=== PATIENT | male | born 1970 | race Caucasian/White ===

== ENCOUNTER 2017-09-16 10:01 | Inpatient (IN) ==
--- NOTE | 2017-09-16 10:12 | Emergency Department Note ---
Disposition Clinical Impression: Fever Qualifiers: Fever type: unspecified Qualified Code(s): R50.9 - Fever, unspecified Sepsis Qualifiers: Sepsis type: sepsis due to unspecified organism Qualified Code(s): A41.9 - Sepsis, unspecified organism Anemia Qualifiers: Anemia type: unspecified type Qualified Code(s): D64.9 - Anemia, unspecified Leukocytosis Qualifiers: Leukocytosis type: bandemia Qualified Code(s): D72.825 - Bandemia Disposition: Admitted As Inpatient Condition: Fair Referrals: Chencho Murillo MD [Primary Care Provider] - Forms: ED Satisfaction Letter Time of Disposition: 13:46 Chest Pain HPI - General Chief Complaint: ED Chest Pain Stated Complaint: CP/SOB Time Seen by Provider: 09/16/17 10:02 Source: patient Mode of arrival: wheelchair Limitations: no limitations Vital Signs Reviewed: Yes Nursing Notes Reviewed: Yes - History of Present Illness HPI Narrative: Patient arrives from his corrugator's office after he complained of chest pain and dyspnea. Chest discomfort started from rest last night. Associated resting dyspnea. Nonproductive cough. Chills. Emesis of "water." Periumbilical pain. He denies fevers Pt complaint: chest pain Onset (ago): hour(s) Duration: constant Onset: during rest Pain Location: substernal Severity: moderate Severity scale (1-10): 6 Quality: aching Pain Radiation: none Improves with: nothing Worsens with: nothing Associated symptoms: Reports: vomiting, dyspnea, cough Treatments prior to arrival chest pain: none - Related Data On Oral Contraceptives: No Home Medications Medication Instructions Recorded Confirmed Atorvastatin [Lipitor] 10 mg PO HS 09/03/16 09/03/16 Furosemide [Lasix] 40 mg PO DAILY 09/03/16 09/03/16 Insulin DETEMIR [Levemir Flextouch] 22 unit SQ HS 09/03/16 09/03/16 amLODIPine [Norvasc] 5 mg PO DAILY 09/03/16 09/03/16 Previous Rx's Medication Instructions Recorded Aspirin Enteric Coated [Aspirin EC] 325 mg PO DAILY 30 Days tablet. 09/04/16 Clopidogrel [Plavix] 75 mg PO DAILY 30 Days tablet 09/04/16 Metoprolol [Lopressor] 25 mg PO BID 30 Days tablet 09/04/16 Simvastatin [Zocor] 40 mg PO HS 30 Days tablet 09/04/16 amLODIPine [Norvasc] 5 mg PO DAILY 30 Days tablet 09/04/16 metFORMIN [Glucophage] 500 mg PO BIDWM 30 Days tablet 09/04/16 Sulfamethoxazole/Trimeth DS 1 each PO BID #20 tablet 11/21/16 [Bactrim DS] Clindamycin [Cleocin] 300 mg PO TID #60 capsule 03/12/17 Doxycycline Hyclate 100 mg PO BID #20 capsule 06/11/17 Allergies Allergy/AdvReac Type Severity Reaction Status Date / Time No Known Allergies Allergy Verified 06/11/17 15:06 All systems ED: reviewed and negative except as stated. Constitutional: Reports: chills Eyes: Reports: as per HPI ENT ED: Reports: as per HPI Cardiovascular: Reports: chest pain Respiratory: Reports: cough, dyspnea Gastrointestinal: Reports: abdominal pain, nausea, vomiting Genitourinary: Reports: as per HPI Musculoskeletal: Reports: as per HPI Integumentary: Reports: as per HPI Neurological: Reports: as per HPI Psychiatric: Reports: as per HPI Endocrine: Reports: as per HPI Hematological/Lymphatic: Reports: as per HPI Allergic/Immunologic: Reports: as per HPI Chest Pain PMH - Past Medical History Medical history: Reports: diabetes, hyperlipidemia, hypertension, renal disease , other Psychiatric history: Reports: anxiety, depression - Social History Smoking Status: Never smoker Alcohol use: Reports: none Drug use: Reports: none Physical Exam - General Limitations: no limitations General appearance: alert, in no apparent distress - Head Head exam: atraumatic - Eye Eye exam: Present: normal appearance - ENT ENT exam: normal exam - Neck Neck exam: Present: normal inspection, full ROM - Chest Chest inspection: Present: normal inspection, symmetric chest wall rise - Respiratory Respiratory exam: Present: normal lung sounds bilaterally, other (Nonproductive cough) - Cardiovascular Cardiovascular exam: Present: regular rate, tachycardia - Abdominal Exam Abdominal exam: Present: soft, Non-Tender (Obese) - Extremities Exam Extremities exam: Present: pedal edema - Neurological Exam Neurological exam: Present: alert, oriented X3, CN II-XII intact - Psychiatric Psychiatric exam: Present: normal affect, normal mood - Skin Skin exam: Present: warm, dry, intact Course Course Narrative: Patient presents from his corrugator office due to cough, dyspnea, chest pain. He is tachycardic on exam. Workup initiated - Reevaluation(s) Reevaluation #1: Patient resting comfortably. Symptoms resolving. Heart rate improving Reevaluation #2: Patient has a leukocytosis with bandemia. He developed a fever. Concern for occult sepsis. Will start broad-spectrum antibiotics and request admission Vital Signs Temperature 99.8 F H 09/16/17 10:03 Pulse Rate 137 09/16/17 10:03 Respiratory Rate 26 09/16/17 10:03 Blood Pressure 175/73 09/16/17 10:03 O2 Sat by Pulse Oximetry 100 09/16/17 10:03 Temperature 100.3 F H 09/16/17 11:31 Pulse Rate 116 09/16/17 13:30 Respiratory Rate 18 09/16/17 13:30 Blood Pressure 131/66 09/16/17 13:30 O2 Sat by Pulse Oximetry 98 09/16/17 13:30 Oxygen Delivery Oxygen Delivery Room Air Chest Pain - Medical Records Medical records reviewed: Yes I reviewed the patient's medical records. Creatinine slightly elevated from baseline. Patient has chronic anemia per my review of medical records - Lab Data Lab results reviewed: Yes I reviewed the patient's lab results. Result diagrams: 09/16/17 10:30 09/16/17 10:30 Lab Results 09/16/17 09/16/17 09/16/17 Range/Units 10:30 10:30 10:30 WBC (4.3-11.1) K/mcL RBC (4.19-5.50) M/mcL Hgb (12.9-16.9) g/dL Hct (37.5-50.1) % MCV (83.0-100.0) fL MCH (28.0-33.3) pg MCHC (31.6-35.5) g/dL RDW (11.5-14.5) % Plt Count (140-400) K/mcL MPV (9.4-12.4) fL Seg Neutrophils % % Band Neutrophils % (0-4) % Lymphocytes % % Metamyelocytes % (0) % Neutrophils # (1.6-8.9) K/mcL Lymphocytes # (0.6-4.6) K/mcL Platelet Estimate (Normal) PT 13.5 H (9.4-12.1) Seconds INR 1.2 APTT 35.6 (26.0-36.0) Seconds D-Dimer 06071 H (0-500) ng/mLFEU Sodium (136-145) mEq/L Potassium (3.5-4.5) mEq/L Chloride (98-109) mEq/L Carbon Dioxide (19-29) mEq/L BUN (8-26) mg/dL Creatinine (0.72-1.25) mg/dL Est GFR ( Amer) (> 60) Est GFR (Non-Af Amer) (> 60) BUN/Creatinine Ratio (6-26) Glucose (70-99) mg/dL Calculated Osmolality (280-300) Lactic Acid (0.5-2.2) mmol/L Calcium (8.6-10.8) mg/dL Total Bilirubin 0.5 (0.2-1.2) mg/dL Direct Bilirubin 0.2 (0.0-0.5) mg/dL Indirect Bilirubin 0.3 (0.0-1.2) mg/dL AST 15 (5-34) Units/L ALT 12 (0-55) Units/L Alkaline Phosphatase 95 (38-126) Units/L Troponin I (0-0.03) ng/mL B-Natriuretic Peptide (0-100) pg/mL Serum Total Protein 7.7 (6.0-8.3) g/dL Albumin 2.8 L (3.5-5.0) g/dL Globulin 4.9 H (2.4-3.5) g/dL Albumin/Globulin Ratio 0.6 L (1.1-2.2) Lipase (8-78) Units/L Urine Color (Yellow) Urine Clarity (Clear) Urine pH (5.0-8.0) pH Units Ur Specific Kosse (1.010-1.025) Urine Protein (Neg-Trace) mg/dL Urine Glucose (UA) (Normal) mg/dL Urine Ketones (Negative) mg/dL Urine Blood (Negative) Urine Nitrite (Negative) Urine Bilirubin (Negative) Urine Urobilinogen (Normal) mg/dL Ur Leukocyte Esterase (Negative) Urine Microscopic RBC (0-3) per hpf Urine Microscopic WBC (0-3) per hpf Ur Squamous Epith Cells (None-Few) per lpf Amorphous Sediment (Few) Urine Bacteria (None-Few) per hpf Hyaline Casts (None-Few) per lpf Granular Casts (None Seen) per lpf Ur Culture Indicated? (NO) 09/16/17 09/16/17 09/16/17 Range/Units 10:30 10:30 10:30 WBC 19.7 H (4.3-11.1) K/mcL RBC 3.12 L (4.19-5.50) M/mcL Hgb 8.8 L (12.9-16.9) g/dL Hct 26.9 L (37.5-50.1) % MCV 86.2 (83.0-100.0) fL MCH 28.2 (28.0-33.3) pg MCHC 32.7 (31.6-35.5) g/dL RDW 14.4 (11.5-14.5) % Plt Count 196 (140-400) K/mcL MPV 10.0 (9.4-12.4) fL Seg Neutrophils % 84.0 % Band Neutrophils % 13.0 H (0-4) % Lymphocytes % 1.0 % Metamyelocytes % 2.0 H (0) % Neutrophils # 19.1 H (1.6-8.9) K/mcL Lymphocytes # 0.2 L (0.6-4.6) K/mcL Platelet Estimate Normal (Normal) PT (9.4-12.1) Seconds INR APTT (26.0-36.0) Seconds D-Dimer (0-500) ng/mLFEU Sodium 134 L (136-145) mEq/L Potassium 5.3 H (3.5-4.5) mEq/L Chloride 106 (98-109) mEq/L Carbon Dioxide 18 L (19-29) mEq/L BUN 45 H (8-26) mg/dL Creatinine 3.71 H (0.72-1.25) mg/dL Est GFR ( Amer) 21 L (> 60) Est GFR (Non-Af Amer) 17 L (> 60) BUN/Creatinine Ratio 12 (6-26) Glucose 252 H (70-99) mg/dL Calculated Osmolality 298 (280-300) Lactic Acid (0.5-2.2) mmol/L Calcium 9.0 (8.6-10.8) mg/dL Total Bilirubin (0.2-1.2) mg/dL Direct Bilirubin (0.0-0.5) mg/dL Indirect Bilirubin (0.0-1.2) mg/dL AST (5-34) Units/L ALT (0-55) Units/L Alkaline Phosphatase (38-126) Units/L Troponin I (0-0.03) ng/mL B-Natriuretic Peptide 852 H (0-100) pg/mL Serum Total Protein (6.0-8.3) g/dL Albumin (3.5-5.0) g/dL Globulin (2.4-3.5) g/dL Albumin/Globulin Ratio (1.1-2.2) Lipase 10 (8-78) Units/L Urine Color (Yellow) Urine Clarity (Clear) Urine pH (5.0-8.0) pH Units Ur Specific Kosse (1.010-1.025) Urine Protein (Neg-Trace) mg/dL Urine Glucose (UA) (Normal) mg/dL Urine Ketones (Negative) mg/dL Urine Blood (Negative) Urine Nitrite (Negative) Urine Bilirubin (Negative) Urine Urobilinogen (Normal) mg/dL Ur Leukocyte Esterase (Negative) Urine Microscopic RBC (0-3) per hpf Urine Microscopic WBC (0-3) per hpf Ur Squamous Epith Cells (None-Few) per lpf Amorphous Sediment (Few) Urine Bacteria (None-Few) per hpf Hyaline Casts (None-Few) per lpf Granular Casts (None Seen) per lpf Ur Culture Indicated? (NO) 09/16/17 09/16/17 09/16/17 Range/Units 10:30 10:30 10:55 WBC (4.3-11.1) K/mcL RBC (4.19-5.50) M/mcL Hgb (12.9-16.9) g/dL Hct (37.5-50.1) % MCV (83.0-100.0) fL MCH (28.0-33.3) pg MCHC (31.6-35.5) g/dL RDW (11.5-14.5) % Plt Count (140-400) K/mcL MPV (9.4-12.4) fL Seg Neutrophils % % Band Neutrophils % (0-4) % Lymphocytes % % Metamyelocytes % (0) % Neutrophils # (1.6-8.9) K/mcL Lymphocytes # (0.6-4.6) K/mcL Platelet Estimate (Normal) PT (9.4-12.1) Seconds INR APTT (26.0-36.0) Seconds D-Dimer (0-500) ng/mLFEU Sodium (136-145) mEq/L Potassium (3.5-4.5) mEq/L Chloride (98-109) mEq/L Carbon Dioxide (19-29) mEq/L BUN (8-26) mg/dL Creatinine (0.72-1.25) mg/dL Est GFR ( Amer) (> 60) Est GFR (Non-Af Amer) (> 60) BUN/Creatinine Ratio (6-26) Glucose (70-99) mg/dL Calculated Osmolality (280-300) Lactic Acid 2.1 (0.5-2.2) mmol/L Calcium (8.6-10.8) mg/dL Total Bilirubin (0.2-1.2) mg/dL Direct Bilirubin (0.0-0.5) mg/dL Indirect Bilirubin (0.0-1.2) mg/dL AST (5-34) Units/L ALT (0-55) Units/L Alkaline Phosphatase (38-126) Units/L Troponin I 0.07 H* (0-0.03) ng/mL B-Natriuretic Peptide (0-100) pg/mL Serum Total Protein (6.0-8.3) g/dL Albumin (3.5-5.0) g/dL Globulin (2.4-3.5) g/dL Albumin/Globulin Ratio (1.1-2.2) Lipase (8-78) Units/L Urine Color Yellow (Yellow) Urine Clarity Slightly Hazy (Clear) Urine pH 5.5 (5.0-8.0) pH Units Ur Specific Kosse 1.025 (1.010-1.025) Urine Protein >=1000 H (Neg-Trace) mg/dL Urine Glucose (UA) 250 H (Normal) mg/dL Urine Ketones Negative (Negative) mg/dL Urine Blood Large H (Negative) Urine Nitrite Negative (Negative) Urine Bilirubin Negative (Negative) Urine Urobilinogen Normal (Normal) mg/dL Ur Leukocyte Esterase Negative (Negative) Urine Microscopic RBC 3-5 H (0-3) per hpf Urine Microscopic WBC 30-50 H (0-3) per hpf Ur Squamous Epith Cells Many H (None-Few) per lpf Amorphous Sediment Many H (Few) Urine Bacteria Moderate H (None-Few) per hpf Hyaline Casts Moderate H (None-Few) per lpf Granular Casts Moderate H (None Seen) per lpf Ur Culture Indicated? NO (NO) - Radiology Data Radiology results reviewed: Yes I reviewed the patient's radiology results. - EKG Data EKG attestation: Yes I reviewed and interpreted this EKG. EKG results narrative: Sinus tachycardia rate 134 SC 141 QRS 85 QT/QTC 273/352
[2017-09-16 10:46] LABS: INR 1.2; Prothrombin Time 13.5 Seconds (9.4-12.1)
[2017-09-16 10:47] LABS: Hematocrit 26.9 % (37.5-50.1); Hemoglobin 8.8 g/dL (12.9-16.9); Mean Corpuscular HGB Conc 32.7 g/dL (31.6-35.5); Mean Corpuscular Hemoglobin 28.2 pg (28.0-33.3); Mean Corpuscular Volume 86.2 fL (83.0-100.0); Platelet Count 196 K/mcL (140-400); Red Blood Count 3.12 M/mcL (4.19-5.50); Red Cell Distribution Width 14.4 % (11.5-14.5)
[2017-09-16 10:49] LABS: Activated Partial Thrombo Time 35.6 Seconds (26.0-36.0)
[2017-09-16 10:56] LABS: Albumin 2.8 g/dL (3.5-5.0); Albumin/Globulin Ratio 0.6 (1.1-2.2); Bilirubin,Direct 0.2 mg/dL (0.0-0.5); Bilirubin,Indirect 0.3 mg/dL (0.0-1.2); Bilirubin,Total 0.5 mg/dL (0.2-1.2); Globulin 4.9 g/dL (2.4-3.5); Total Protein 7.7 g/dL (6.0-8.3)
[2017-09-16 10:57] LABS: Potassium 5.3 mEq/L (3.5-4.5)
[2017-09-16 11:06] LABS: Bilirubin,Urine Negative (Negative); Blood,Urine Large (Negative); Color,Urine Yellow (Yellow); Glucose,Urine (UA) 250 mg/dL (Normal); Ketones,Urine Negative (Negative); Leukocyte Esterase,Urine Negative (Negative); Nitrite,Urine Negative (Negative); PH,Urine 5.5 pH Units (5.0-8.0); Protein,Urine >=1000 mg/dL (Neg-Trace); Specific Gravity,Urine 1.025 (1.010-1.025); Urobilinogen,Urine Normal (Normal)
[2017-09-16 11:13] LABS: Hyaline Casts,Urine Moderate per lpf (None-Few); Squamous Epithelial Cell,Urine Many per lpf (None-Few); WBC,Urine 30-50 per hpf (0-3)
[2017-09-16 11:14] LABS: Clarity,Urine Slightly Hazy (Clear)
[2017-09-16] MEDS ORDERED: 0.9 % Sodium Chloride 1,000 ML IVC ONE ×2 (11:17→11:24)
[2017-09-16 11:25] LABS: Amorphous Sediment,Urine Many (Few); Bacteria,Urine Moderate per hpf (None-Few); Granular Casts,Urine Moderate per lpf (None Seen)
[2017-09-16 11:34] LABS: Lymphocytes # 0.2 K/mcL (0.6-4.6); Neutrophils # 19.1 K/mcL (1.6-8.9)
[2017-09-16 11:35] LABS: Platelet Estimate Normal (Normal)
[2017-09-16] MEDS ORDERED: Levofloxacin 500 MG/100 ML 500 MG/100 ML BAG IVPB ONE (13:46)
[2017-09-16] MEDS ORDERED: *HR* Promethazine 25 MG/ML VIAL IVP PRN (15:23)
[2017-09-16] MEDS ORDERED: *HR* HYDROcodone/Acet 5/325 mg TABLET PO PRN (15:23)
[2017-09-16] MEDS ORDERED: Naloxone 0.4 MG/ML INJ IVP PRN (15:23)
[2017-09-16] MEDS ORDERED: *HR* Morphine 2 MG/ML SYRINGE IVP PRN (15:23)
[2017-09-16] MEDS ORDERED: Ondansetron 4 MG/2 ML VIAL IVP PRN (15:23)
[2017-09-16] MEDS ORDERED: Acetaminophen 325 MG TABLET PO PRN (15:23)
[2017-09-16] MEDS ORDERED: Dextrose Gel 15 GM PO PRN ×2 (15:58)
[2017-09-16] MEDS ORDERED: *HR* Dextrose 50 % in Water (Syg) 50 ML SYRINGE IVP PRN (15:58)
[2017-09-16] MEDS ORDERED: D5% in Water 1,000 ML IVC PRN (15:58)
[2017-09-16] MEDS: Insulin LISPRO 300 UNITS/3 ML VIAL SQ SCH ×2 (16:49→21:36)
[2017-09-16] MEDS: *HR* Heparin 5,000 UNIT/ML VIAL SQ SCH (17:04)
--- NOTE | 2017-09-16 17:47 | Internal Med History&Physical ---
Date of Encounter: 09/16/17 Time of Encounter: 16:00 Assessment and Plan (1) Sepsis Current visit: Yes Status: Acute Will admit the pt into Tele He does meet Sepsis criteria with WBC -19.7, Tachcyardia and source of inf as UTI Cont IV hydration Sent for blood cx and urine cx started on empirical abx Rocephin 2mg IV daily Qualifiers: Sepsis type: sepsis due to unspecified organism Qualified Code(s): A41.9 - Sepsis, unspecified organism (2) UTI (urinary tract infection) Current visit: Yes Status: Acute could be due to recently passed renal calculi Qualifiers: Qualified Code(s): N39.0 - Urinary tract infection, site not specified (3) Elevated troponin Current visit: No Status: Acute Mostly demand ischemia EKG showed sinus tachycardia with VE 134, NO ST T changes Will trend on troponin cont home med ASA, Plavix , Metoprolol and statin will get 2 D echo in AM (4) ERWIN (acute kidney injury) Current visit: No Status: Acute Due to sepsis , dehydration and medication side effect with Lasix and Metformin cont IV hydration Nephro consulted avoid nephro toxic meds (5) SOB (shortness of breath) Current visit: Yes Status: Acute Multi factorial..mostly due to sepsis since D dimer elevate d- V/Q scan was done in ER - showed low probability for PE No signs of DVT Will get 2 D Echo to r/o any heart failure..he does slightly elevated BNP could be due to ERWIN / CKD (6) Diabetes Current visit: No Status: Chronic HbA1C in AM placed on ISS d/c Metformin Qualifiers: Diabetes mellitus type: other specified (including LILIANA) Diabetes mellitus complication status: with skin complications Diabetes mellitus complication detail: with foot ulcer Diabetes mellitus group home insulin use: unspecified manager terminal insulin use status Qualified Code(s): E13.621 - Other specified diabetes mellitus with foot ulcer; L97.509 - Non-pressure chronic ulcer of other part of unspecified foot with unspecified severity (7) Hyperlipidemia Current visit: No Status: Acute on statin Qualifiers: Hyperlipidemia type: unspecified Qualified Code(s): E78.5 - Hyperlipidemia , unspecified (8) Hypertension Current visit: No Status: Chronic resumed all home meds Qualifiers: Hypertension type: essential hypertension Qualified Code(s): I10 - Essential (primary) hypertension (9) Renal calculi Current visit: Yes Status: Acute Reviewed CT ..no active stones now (10) CKD (chronic kidney disease) stage 3, GFR 30-59 ml/min Current visit: Yes Status: Chronic Internal Medicine - H&P: HPI Chief complaint: Abd pain, Chills, N / V Admitted From: Emergency Dept Plans for Post Hospital Care: Home History of present illness: Mr. 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 Pt did mentioned from last 2 days he has beenfeeling weak, lthergiac, developed RLQ abdominal pain with nausea and vomiting. He had CT of Abd and Pelvis done today which showed Rt perinpehric and periureteral soft tissue stranding with thickened bladder wall. Findings were consistent with recently passed calculus. His UA also positive for esterase and bacteria. Pt denied any active CP now. He feels little better after receiving some IV fluids in the ER. Past Med Surg Social Fam HX - Past Medical History Medical history: diabetes, hyperlipidemia, hypertension, renal disease, other Psychiatric history: anxiety, depression - Past Surgical History Surgical History: no surgical history - Social History Smoking Status: Never smoker Smokeless Tobacco Status: No Alcohol use: none Drug use: none - Family History Father Hx Family Cardiac Disorders: Yes (CAD) Hx Family Endocrine Disorder: Yes (DM2) Internal Medicine - H&P: Meds Atorvastatin [Lipitor] 10 mg PO HS 09/03/16 [History] Furosemide [Lasix] 40 mg PO DAILY 09/03/16 [History] Insulin DETEMIR [Levemir Flextouch] 40 unit SQ HS 09/03/16 [History] amLODIPine [Norvasc] 5 mg PO DAILY 09/03/16 [History] Aspirin Enteric Coated [Aspirin EC] 325 mg PO DAILY 30 Days tablet. 09/04/16 [Rx] Clopidogrel [Plavix] 75 mg PO DAILY 30 Days tablet 09/04/16 [Rx] Metoprolol [Lopressor] 25 mg PO BID 30 Days tablet 09/04/16 [Rx] Simvastatin [Zocor] 40 mg PO HS 30 Days tablet 09/04/16 [Rx] metFORMIN [Glucophage] 500 mg PO BIDWM 30 Days tablet 09/04/16 [Rx] 3 Allergy/AdvReac Type Severity Reaction Status Date / Time No Known Allergies Allergy Verified 06/11/17 15:06 All Systems PM: A 10-system review of systems was performed and is negative for pertinent findings except as documented above in the HPI. Review of systems: Reviewed all the systems , everything is benign except the systems and symptoms I mentioned in HPI. - Constitutional Vitals: Temp Pulse Resp BP Pulse Ox 98.2 F 100 17 103/67 98 09/16/17 15:16 09/16/17 15:16 09/16/17 15:16 09/16/17 15:16 09/16/17 16:08 General appearance: Present: A&O X 3, no acute distress, answers questions appropriately Exam: slightly lethargic / weak and dehydrated - Head Head exam: Present: atraumatic, normal inspection - Respiratory Respiratory exam: Present: decreased breath sounds, wheezes (mild). Absent: rales, respiratory distress, rhonchi - Cardiovascular Cardiovascular exam: Present: +S1, +S2, tachycardia. Absent: systolic murmur - GI/Abdominal GI/Abdominal exam: Present: distended, normal bowel sounds, soft. Absent: rebound, rigid, tenderness - Extremities Exam Extremities exam: Present: pedal edema (trace). Absent: calf tenderness, tenderness - Back Exam Back exam: Absent: CVA tenderness (L), CVA tenderness (R) - Neurological Exam Neurological exam: Present: alert, oriented X3 - Psychiatric Psychiatric exam: Present: normal affect, normal mood - Skin Skin exam: Present: dry, warm. Absent: rash Internal Med - H&P Results - Labs CBC & Chem 7: 09/16/17 10:30 09/16/17 10:30
[2017-09-16] MEDS: 0.9 % Sodium Chloride 1,000 ML IVC SCH (18:13)
[2017-09-16 18:28] LABS: Calcium 8.1 mg/dL (8.6-10.8); Potassium 5.7 mEq/L (3.5-4.5)
[2017-09-16] MEDS: Ipratropium/Albuterol Neb 3 ML IH SCH ×3 (20:48→23:25)
[2017-09-16] MEDS: Albuterol 2.5 MG/3 ML NEBULIZER IH SCH ×2 (20:52→23:25)
[2017-09-16] MEDS: Insulin DETEMIR 100 UNIT/ML X5UNITS SQ SCH (21:44)
[2017-09-16 22:59] LABS: Magnesium 1.4 mg/dL (1.6-2.6)
[2017-09-16 23:02] LABS: Potassium 4.6 mEq/L (3.5-4.5)
[2017-09-17] MEDS: 0.9 % Sodium Chloride 1,000 ML IVC SCH ×2 (02:15→11:27)
[2017-09-17] MEDS: Ipratropium/Albuterol Neb 3 ML IH SCH ×6 (03:46→23:03)
[2017-09-17] MEDS: Albuterol 2.5 MG/3 ML NEBULIZER IH SCH ×6 (03:46→23:03)
[2017-09-17 04:33] LABS: Basophils % 0.2 %; Eosinophils # 0.1 K/mcL (0.0-0.6); Eosinophils % 0.5 %; Hematocrit 21.3 % (37.5-50.1); Immature Granulocytes % 0.5 % (0-4); Lymphocytes # 0.8 K/mcL (0.6-4.6); Lymphocytes % 8.2 %; Mean Corpuscular HGB Conc 32.4 g/dL (31.6-35.5); Mean Corpuscular Hemoglobin 27.7 pg (28.0-33.3); Mean Corpuscular Volume 85.5 fL (83.0-100.0); Mean Platelet Volume 10.2 fL (9.4-12.4); Monocytes # 0.9 K/mcL (0.0-1.3); Monocytes % 9.4 %; Platelet Count 136 K/mcL (140-400); Red Blood Count 2.49 M/mcL (4.19-5.50); Red Cell Distribution Width 14.8 % (11.5-14.5); Segmented Neutrophils % 81.2 %
[2017-09-17 04:38] LABS: Hemoglobin 6.9 g/dL (12.9-16.9)
[2017-09-17 04:46] LABS: Albumin/Globulin Ratio 0.5 (1.1-2.2); Bilirubin,Total 0.3 mg/dL (0.2-1.2); Calcium 7.7 mg/dL (8.6-10.8); Chol/HDL Ratio 7.4 (0-4.9); Globulin 4.2 g/dL (2.4-3.5); Magnesium 1.5 mg/dL (1.6-2.6); Potassium 4.7 mEq/L (3.5-4.5); Total Protein 6.4 g/dL (6.0-8.3)
[2017-09-17 04:51] LABS: Albumin 2.2 g/dL (3.5-5.0)
[2017-09-17 05:35] LABS: Platelet Estimate Slight Decrease (Normal)
[2017-09-17] MEDS: *HR* Heparin 5,000 UNIT/ML VIAL SQ SCH (06:21)
[2017-09-17] MEDS ORDERED: Magnesium Sulfate 2 GM in D5% in Water 100 ML IVPB ONE (07:43)
--- NOTE | 2017-09-17 07:54 | Internal Med Progress Note ---
Date of Encounter: 09/17/17 Time of Encounter: 07:52 - Assessment and plan (1) Sepsis Current Visit: Yes Status: Acute Assessment and plan: Improving WBC trended down to normal Blood cx and Urine cx - P cont empirical abx Rocephin Qualifiers: Sepsis type: sepsis due to unspecified organism Qualified Code(s): A41.9 - Sepsis, unspecified organism (2) UTI (urinary tract infection) Current Visit: Yes Status: Acute Assessment and plan: cont abx Rocephin Qualifiers: Qualified Code(s): N39.0 - Urinary tract infection, site not specified (3) Non-healing ulcer of left foot Current Visit: Yes Status: Acute Assessment and plan: It does not look like actively infected now will get X ray foot b/l Consulted [employer] Dr. Gomez for further eval Qualifiers: Qualified Code(s): L97.529 - Non-pressure chronic ulcer of other part of left foot with unspecified severity (4) Anemia due to chronic kidney disease Current Visit: Yes Status: Acute Assessment and plan: His Hb dropped down to 6.9 ..Could be dilutional.. He doea have chronic anemia due to CKD will give 1 U PRBC now check Iron profile in AM (5) Elevated troponin Current Visit: No Status: Acute Assessment and plan: mostly due to demand ischemia trended down to normal will f/u on 2 D Echo (6) ERWIN (acute kidney injury) Current Visit: No Status: Acute Assessment and plan: Due to to sepsis , dehydration and medication side effect with Lasix and Metformin Improving cont IV hydration Nephro consulted avoid nephro toxic meds (7) SOB (shortness of breath) Current Visit: Yes Status: Acute Assessment and plan: Multi factorial..mostly due to sepsis since D dimer elevate d- V/Q scan was done in ER - showed low probability for PE No signs of DVT Will get 2 D Echo to r/o heart failure..he does have slightly elevated BNP could be due to ERWIN / CKD (8) Diabetes Current Visit: No Status: Chronic Assessment and plan: HbA1C - P Cont on ISS + levemir d/c Metformin Qualifiers: Diabetes mellitus type: other specified (including LILIANA) Diabetes mellitus complication status: with skin complications Diabetes mellitus complication detail: with foot ulcer Diabetes mellitus senior living insulin use: unspecified 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 Qualified Code(s): E13.621 - Other specified diabetes mellitus with foot ulcer; L97.509 - Non-pressure chronic ulcer of other part of unspecified foot with unspecified severity (9) Hyperlipidemia Current Visit: No Status: Acute Qualifiers: Hyperlipidemia type: unspecified Qualified Code(s): E78.5 - Hyperlipidemia , unspecified (10) Hypertension Current Visit: No Status: Chronic Assessment and plan: stable with current medication Will give hydralazine IV PRN too Qualifiers: Hypertension type: essential hypertension Qualified Code(s): I10 - Essential (primary) hypertension (11) Renal calculi Current Visit: Yes Status: Acute Assessment and plan: Reviewed CT ..no active stones now (12) CKD (chronic kidney disease) stage 3, GFR 30-59 ml/min Current Visit: Yes Status: Chronic - Subjective Interval history: Mr. 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 Pt did mentioned from last 2 days he has beenfeeling weak, lthergiac, developed RLQ abdominal pain with nausea and vomiting. He had CT of Abd and Pelvis done today which showed Rt perinpehric and periureteral soft tissue stranding with thickened bladder wall. Findings were consistent with recently passed calculus. His UA also positive for esterase and bacteria. Pt was admitted in the hospital with ERWIN with CKD-3 and Sepsis with UTI. Pt stated he is feeling better today. Denied any CP / SOB / Abd pain. Tolerating PO intake ok. No N/V. - Constitutional Vitals: Temp Pulse Resp BP Pulse Ox 98.1 F 97 18 145/83 100 09/17/17 07:14 09/17/17 07:14 09/17/17 07:14 09/17/17 07:14 09/17/17 07:14 General appearance: Present: A&O X 3, no acute distress, answers questions appropriately - Head Head exam: Present: atraumatic, normal inspection - Respiratory Respiratory exam: Present: decreased breath sounds, wheezes (mild). Absent: rales, respiratory distress, rhonchi - Cardiovascular Cardiovascular exam: Present: RRR, +S1, +S2. Absent: systolic murmur - GI/Abdominal GI/Abdominal exam: Present: normal bowel sounds, soft. Absent: rebound, rigid, tenderness - Extremities Exam Extremities exam: Absent: calf tenderness, pedal edema, tenderness Additional comments: chronic non healing ulcer over Left foot at base of 1st MTP joint noticed..No swelling / no erythema / no signs of acute infection noticed. He also have another small non healing ulcer over Rt great toe plantar region - Back Exam Back exam: Absent: CVA tenderness (L), CVA tenderness (R) - Neurological Exam Neurological exam: Present: alert, oriented X3 - Psychiatric Psychiatric exam: Absent: normal affect, normal mood Internal Medicine: Result - Labs CBC & Chem 7: 09/17/17 04:16 09/17/17 04:16 Labs: Short CBC 09/17/17 Range/Units 04:16 WBC 9.9 (4.3-11.1) K/mcL Hgb 6.9 L D (12.9-16.9) g/dL Hct 21.3 L (37.5-50.1) % Plt Count 136 L (140-400) K/mcL Neutrophils # 8.0 (1.6-8.9) K/mcL BMP 09/16/17 09/17/17 22:40 04:16 Sodium 137 138 Potassium 4.6 H D 4.7 H Chloride 113 H 114 H Carbon Dioxide 14 L 15 L BUN 48 H 49 H Creatinine 3.56 H 3.44 H Glucose 118 H 96 Calcium 8.0 L 7.7 L Cardiac Enzymes 09/16/17 Range/Units 22:40 Troponin I 0.05 H* (0-0.03) ng/mL Liver Function 09/17/17 Range/Units 04:16 Total Bilirubin 0.3 (0.2-1.2) mg/dL AST 16 (5-34) Units/L ALT 10 (0-55) Units/L Alkaline Phosphatase 73 (38-126) Units/L Albumin 2.2 L D (3.5-5.0) g/dL - ABG Interpretation ABG results: PT/INR, D-dimer PT 13.5 Seconds (9.4-12.1) H 09/16/17 10:30 D-Dimer 02949 ng/mLFEU (0-500) H 09/16/17 10:30 Consult Discharge Plan - Plan Referrals: Chencho Murillo MD [Primary Care Provider] -
[2017-09-17] MEDS ORDERED: *HR* HYDROcodone/Acet 7.5/325 mg TABLET PO PRN (08:30)
[2017-09-17] MEDS: Insulin LISPRO 300 UNITS/3 ML VIAL SQ SCH ×4 (09:05→21:11)
--- NOTE | 2017-09-17 09:13 | Nephrology Consult Note ---
Date of Encounter: 09/17/17 Time of Encounter: 09:10 Assessment and Plan (1) ERWIN (acute kidney injury) Current Visit: No Status: Acute Kidney function improving after receiving IV fluids Scr 3.44 from 3.56 and GFR 19 from 18 Need strict I/Os-no urine output recorded Avoid nephrotoxins if possible (2) CKD (chronic kidney disease) stage 3, GFR 30-59 ml/min Current Visit: Yes Status: Chronic Baseline Scr 2.02 and GFR 31 as of May 2017 Avoid nephrotoxins if possible (3) Anemia Current Visit: Yes Status: Acute Hgb 6.9 1 unit of PRBC already ordered Iron profile to be check in the morning Qualifiers: Anemia type: unspecified type Qualified Code(s): D64.9 - Anemia, unspecified (4) Sepsis Current Visit: Yes Status: Acute Much better-WBC down from 19.7 to 9.9 today per primary team Qualifiers: Sepsis type: sepsis due to unspecified organism Qualified Code(s): A41.9 - Sepsis, unspecified organism (5) UTI (urinary tract infection) Current Visit: Yes Status: Acute per primary team Qualifiers: Qualified Code(s): N39.0 - Urinary tract infection, site not specified; R31.9 - Hematuria, unspecified; R31.9 - Hematuria, unspecified History of Present Illness - Reason for Consult Consult date: 09/17/17 Acute Kidney Injury, Chronic Kidney Disease - Chief Complaint ERWIN on CKD stage 3, sepsis - History of Present Illness Mr. Kumar is a 47 year old male with known PMH of HTN, DM2, HLD, CKD-3 who was being seen by Dr Jules in the office where he reported SOB and Chest discomfort. A rapid response was called and patient transported to ED where he was admitted with sepsis and shortness of breath. His UA was also positive for esterase and bacteria. Kidney function has decreased from his baseline and nephrology has been asked to manage his ERWIN while hospitalized. Past Med Surg Social Fam HX - Past Medical History Medical history: diabetes, hyperlipidemia, hypertension, renal disease, other Psychiatric history: anxiety, depression - Past Surgical History Surgical History: no surgical history - Social History Smoking Status: Never smoker Smokeless Tobacco Status: No Alcohol use: none Drug use: none - Family History Father Hx Family Cardiac Disorders: Yes (CAD) Hx Family Endocrine Disorder: Yes (DM2) Medications and Allergies Atorvastatin [Lipitor] 10 mg PO HS 09/03/16 [History] Furosemide [Lasix] 40 mg PO DAILY 09/03/16 [History] Insulin DETEMIR [Levemir Flextouch] 40 unit SQ HS 09/03/16 [History] amLODIPine [Norvasc] 5 mg PO DAILY 09/03/16 [History] Aspirin Enteric Coated [Aspirin EC] 325 mg PO DAILY 30 Days tablet. 09/04/16 [Rx] Clopidogrel [Plavix] 75 mg PO DAILY 30 Days tablet 09/04/16 [Rx] Metoprolol [Lopressor] 25 mg PO BID 30 Days tablet 09/04/16 [Rx] Simvastatin [Zocor] 40 mg PO HS 30 Days tablet 09/04/16 [Rx] metFORMIN [Glucophage] 500 mg PO BIDWM 30 Days tablet 09/04/16 [Rx] 3 Allergy/AdvReac Type Severity Reaction Status Date / Time No Known Allergies Allergy Verified 06/11/17 15:06 Review of Systems All Systems: reviewed and no additional remarkable complaints except as stated Constitutional: malaise, no anorexia, no chills, no fever(s) Cardiovascular: chest pain, dyspnea Respiratory: dyspnea Gastrointestinal: no nausea, no vomiting Neurological: no behavioral changes Exam - Vital Signs Vital signs: Initial Vital Signs Temp Pulse Resp BP Pulse Ox 99.8 F H 137 26 175/73 100 09/16/17 10:03 09/16/17 10:03 09/16/17 10:03 09/16/17 10:03 09/16/17 10:03 Vital Signs - Last 8 Hours Temp Pulse Resp BP Pulse Ox 09/17/17 07:14 98.1 F 97 18 145/83 100 09/17/17 03:05 97.7 F 94 18 118/77 99 Intake and Output 09/16/17 09/17/17 09/17/17 23:59 07:59 15:59 Intake Total 1000 / 1000 Balance 1000 / 1000 Intake: IV Fluids 1000 / 1000 0.9 % Sodium Chloride 1,000 ML 1000 / 1000 @ 125 mls/hr IVC .Q8H [facility] Rx#: [id number] Other: Weight 121.472 kg Blood Glucose* 146 88 Patient Weight 09/17/17 23:59 Weight 121.472 kg - General Appearance General appearance: well-developed, well-nourished EENT: ATNC, mucous membranes moist, hearing intact, vision intact Neck: supple Respiratory: clear Cardiology: edema (minimal BLL edema), normal S1, normal S2 Gastrointestinal: no tenderness, no guarding Integumentary: warm and dry Neurologic: alert and oriented x3 Psychiatric: mood/affect appropriate, cooperative Results - Lab Results 09/17/17 04:16 09/17/17 04:16 Most recent lab results Calcium 7.7 mg/dL (8.6-10.8) L 09/17/17 04:16 Magnesium 1.5 mg/dL (1.6-2.6) L 09/17/17 04:16 Consult Discharge Plan - Plan Referrals: Chencho Murillo MD [Primary Care Provider] -
--- NOTE | 2017-09-17 16:01 | Electrocardiograph Report ---
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
[2017-09-17] MEDS ORDERED: 0.9 % Sodium Chloride 250 ML ONE (16:14)
--- NOTE | 2017-09-17 17:20 | Podiatry Consult Note ---
Date of Encounter: 09/17/17 Time of Encounter: 17:10 Assessment and Plan (1) Diabetic foot ulcer Current visit: Yes Status: Acute Assessment: Hemmorhaged callused lesion to plantar #5 MTP right foot extending laterally. S/p sharp cutting with a #15 scalpel blade revealed a full thickness ulceration , no pus, no odor, no periwound erythema, no probe to bone. Xray of right foot reviewed with Dr. Gomez no evidence of soft tissue gas to the 5th metatarsal head. Soft tissue erosions seen to the 5th metatarsal head. Plan: Bedside debridement performed with a #15 scalpel blade, no complications. Ulcer irrigated with saline, dry sterile dressing applied. Will write for wound care orders. No plan for surgical debridement at this time. Will continue to monitor patient closely. Qualifiers: Diabetes mellitus type: type 2 Laterality: right Non-pressure ulcer stage : limited to breakdown of skin Qualified Code(s): E11.621 - Type 2 diabetes mellitus with foot ulcer; L97.411 - Non-pressure chronic ulcer of right heel and midfoot limited to breakdown of skin; L97.411 - Non-pressure chronic ulcer of right heel and midfoot limited to breakdown of skin; L97.411 - Non-pressure chronic ulcer of right heel and midfoot limited to breakdown of skin; L97.411 - Non-pressure chronic ulcer of right heel and midfoot limited to breakdown of skin (2) Non-healing ulcer of left foot Current visit: Yes Status: Acute Assessment: Ulcer to the distal aspect of the left great toe secondary to static hammer toe deformity. S/p sharp cutting with a #15 scalpel blade revealed a full thickness ulceration , no pus, no odor, no periwound erythema, no probe to bone. Xray of left foot reviewed with Dr. Gomez no evidence of bony erosion. Plan: Callused edges removed with a #15 scalpel blade to alleviate pressure and gain true dimensions of wound. Ulcer irrigated with saline, dry sterile dressing applied. Will write for wound care orders. No plan for surgical debridement at this time. Will continue to monitor patient closely. 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 Kumar is a 47 year old male admitted to [place] for UTI, sepsis, ERWIN. Patient has a medical history significant for HTN, DM2, hyperlipidemia, CKD, stage 3. Podiatry was consulted for ulcers to both feet. Patient has a surgical history of right great toe amputation by Dr. Gomez and amputation to the 5th toe and 5th metatarsal head left foot by Dr. Chun. Patient states both of his feet hurt and rates them at a 5 out of 10. Patient was last evaluated by Dr. Gomez in June of 2017 for an ongoing ulcer of the distal aspect of the left great toe secondary to static deformity of rigid hammertoe. In June the right foot ulcer to sub #5 metatarsal head had healed at that time. Patient presents to hospital with open ulcers to the right foot at sub #5 metatarsal head and to the distal aspect of the left great toe. Patient states he was scheduled to have surgery on both feet in July but the surgery was cancelled due to his blood pressure. Patient states both ulcers are draining. Past Med Surg Social Fam HX - Past Medical History Medical history: diabetes, hyperlipidemia, hypertension, renal disease, other Psychiatric history: anxiety, depression - Past Surgical History Surgical History: no surgical history - Social History Smoking Status: Never smoker Smokeless Tobacco Status: No Alcohol use: none Drug use: none - Family History Father Hx Family Cardiac Disorders: Yes (CAD) Hx Family Endocrine Disorder: Yes (DM2) Medications and Allergies Atorvastatin [Lipitor] 10 mg PO HS 09/03/16 [History] Furosemide [Lasix] 40 mg PO DAILY 09/03/16 [History] Insulin DETEMIR [Levemir Flextouch] 40 unit SQ HS 09/03/16 [History] amLODIPine [Norvasc] 5 mg PO DAILY 09/03/16 [History] Aspirin Enteric Coated [Aspirin EC] 325 mg PO DAILY 30 Days tablet. 09/04/16 [Rx] Clopidogrel [Plavix] 75 mg PO DAILY 30 Days tablet 09/04/16 [Rx] Metoprolol [Lopressor] 25 mg PO BID 30 Days tablet 09/04/16 [Rx] Simvastatin [Zocor] 40 mg PO HS 30 Days tablet 09/04/16 [Rx] metFORMIN [Glucophage] 500 mg PO BIDWM 30 Days tablet 09/04/16 [Rx] 3 Allergy/AdvReac Type Severity Reaction Status Date / Time No Known Allergies Allergy Verified 06/11/17 15:06 All Systems Reviewed: A 10-system review of systems was performed and is negative for pertinent findings except as documented above in the HPI. Physical Exam - Constitutional Vitals: Temp Pulse Resp BP Pulse Ox 98.3 F 100 16 144/84 100 09/17/17 16:45 09/17/17 16:45 09/17/17 16:45 09/17/17 16:45 09/17/17 16:45 Exam: General appearance: alert awake oriented X 3. Calm and pleasant, no acute distress.. Vascular: Pedal pulses +2/4 DP/PT , No evidence of cyanosis, pallor or rubor, Edema graded at 1+/4, Skin Temperature warm, No calf pain with manual compression. capillary refill time is immediate to digits. Neurologic: Sensation diminished to both feet . 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 Ulcer: Hemmorhaged callused lesion to plantar #5 MTP right foot, s/p sharp cutting with a #15 scalpel blade revealed a full thickness ulceration measuring 2 cm in length x 4 cm in width x 0.3 cm in depth extending laterally, base of wound is pink, no pus, no odor, no fluctuance, no exposed bone, ligament or tendon, no probe to bone, no periwound erythema. Ulcer the distal aspect of the left great toe secondary to static hammer toe deformity. Wound edges are hyperkeratotic, s/p sharp cutting with a #15 scalpel blade revealed a full thickness ulceration measuring 1 cm in diameter x 0.2 cm in depth, base of wound is red, no pus, no odor, no fluctuance, no exposed bone, ligament or tendon, no probe to bone, no periwound erythema. Results - Labs Result Diagrams: 09/18/17 03:13 09/18/17 03:13 Labs: Abnormal lab results RBC 2.49 M/mcL (4.19-5.50) L 09/17/17 04:16 Hgb 6.9 g/dL (12.9-16.9) L D 09/17/17 04:16 Hct 21.3 % (37.5-50.1) L 09/17/17 04:16 MCH 27.7 pg (28.0-33.3) L 09/17/17 04:16 RDW 14.8 % (11.5-14.5) H 09/17/17 04:16 Plt Count 136 K/mcL (140-400) L 09/17/17 04:16 Band Neutrophils % 13.0 % (0-4) H 09/16/17 10:30 Metamyelocytes % 2.0 % (0) H 09/16/17 10:30 Platelet Estimate Slight Decrease (Normal) L 09/17/17 04:16 PT 13.5 Seconds (9.4-12.1) H 09/16/17 10:30 D-Dimer 12685 ng/mLFEU (0-500) H 09/16/17 10:30 Potassium 4.7 mEq/L (3.5-4.5) H 09/17/17 04:16 Chloride 114 mEq/L (98-109) H 09/17/17 04:16 Carbon Dioxide 15 mEq/L (19-29) L 09/17/17 04:16 BUN 49 mg/dL (8-26) H 09/17/17 04:16 Creatinine 3.44 mg/dL (0.72-1.25) H 09/17/17 04:16 Est GFR ( Amer) 23 (> 60) L 09/17/17 04:16 Est GFR (Non-Af Amer) 19 (> 60) L 09/17/17 04:16 POC Glucose 134 (58-89) H 09/17/17 10:46 Calcium 7.7 mg/dL (8.6-10.8) L 09/17/17 04:16 Magnesium 1.5 mg/dL (1.6-2.6) L 09/17/17 04:16 Troponin I 0.05 ng/mL (0-0.03) H* 09/16/17 22:40 B-Natriuretic Peptide 852 pg/mL (0-100) H 09/16/17 10:30 Albumin 2.2 g/dL (3.5-5.0) L D 09/17/17 04:16 Globulin 4.2 g/dL (2.4-3.5) H 09/17/17 04:16 Albumin/Globulin Ratio 0.5 (1.1-2.2) L 09/17/17 04:16 Triglycerides 243 mg/dL (< 150) H 09/17/17 04:16 VLDL Cholesterol, Calc 49 mg/dL (< 31) H 09/17/17 04:16 HDL Cholesterol 22 mg/dL (40-59) L 09/17/17 04:16 Cholesterol/HDL Ratio 7.4 (0-4.9) H 09/17/17 04:16 Urine Protein >=1000 mg/dL (Neg-Trace) H 09/16/17 10:55 Urine Glucose (UA) 250 mg/dL (Normal) H 09/16/17 10:55 Urine Blood Large (Negative) H 09/16/17 10:55 Urine Microscopic RBC 3-5 per hpf (0-3) H 09/16/17 10:55 Urine Microscopic WBC 30-50 per hpf (0-3) H 09/16/17 10:55 Ur Squamous Epith Cells Many per lpf (None-Few) H 09/16/17 10:55 Amorphous Sediment Many (Few) H 09/16/17 10:55 Urine Bacteria Moderate per hpf (None-Few) H 09/16/17 10:55 Hyaline Casts Moderate per lpf (None-Few) H 09/16/17 10:55 Granular Casts Moderate per lpf (None Seen) H 09/16/17 10:55 H & H 09/17/17 Range/Units 04:16 Hgb 6.9 L D (12.9-16.9) g/dL Hct 21.3 L (37.5-50.1) % All other labs normal. Consult Discharge Plan - Plan Referrals: Chencho Murillo MD [Primary Care Provider] - 09/24/17 10:30 am (please follow up as schedule..)
[2017-09-17] MEDS: Insulin DETEMIR 100 UNIT/ML X5UNITS SQ SCH (21:23)
[2017-09-18] MEDS: Ipratropium/Albuterol Neb 3 ML IH SCH ×6 (03:34→23:13)
[2017-09-18] MEDS: Albuterol 2.5 MG/3 ML NEBULIZER IH SCH ×6 (03:34→23:13)
[2017-09-18] MEDS: 0.9 % Sodium Chloride 1,000 ML IVC SCH (03:34)
[2017-09-18 04:15] LABS: Basophils % 0.3 %; Eosinophils # 0.1 K/mcL (0.0-0.6); Eosinophils % 1.9 %; Hematocrit 24.9 % (37.5-50.1); Immature Granulocytes % 0.4 % (0-4); Lymphocytes # 1.2 K/mcL (0.6-4.6); Lymphocytes % 16.1 %; Mean Corpuscular HGB Conc 32.1 g/dL (31.6-35.5); Mean Corpuscular Hemoglobin 28.3 pg (28.0-33.3); Mean Platelet Volume 10.6 fL (9.4-12.4); Monocytes # 0.7 K/mcL (0.0-1.3); Monocytes % 9.6 %; Neutrophils # 5.2 K/mcL (1.6-8.9); Platelet Count 161 K/mcL (140-400); Red Blood Count 2.83 M/mcL (4.19-5.50); Red Cell Distribution Width 14.7 % (11.5-14.5); Segmented Neutrophils % 71.7 %
[2017-09-18 04:33] LABS: Calcium 7.9 mg/dL (8.6-10.8); Potassium 4.5 mEq/L (3.5-4.5)
[2017-09-18] MEDS: Insulin LISPRO 300 UNITS/3 ML VIAL SQ SCH ×4 (07:56→21:03)
--- NOTE | 2017-09-18 09:51 | Internal Med Progress Note ---
Date of Encounter: 09/18/17 Time of Encounter: 07:30 - Assessment and plan (1) Sepsis Current Visit: Yes Status: Acute Assessment and plan: Improving WBC trended down to normal Blood cx and Urine cx - P cont empirical abx Rocephin Qualifiers: Sepsis type: sepsis due to unspecified organism Qualified Code(s): A41.9 - Sepsis, unspecified organism (2) UTI (urinary tract infection) Current Visit: Yes Status: Acute Assessment and plan: cont abx Rocephin Qualifiers: Qualified Code(s): N39.0 - Urinary tract infection, site not specified (3) Non-healing ulcer of left foot Current Visit: Yes Status: Acute Assessment and plan: Reviewed X ray of Rt Foot - showing lucency over the 5th metatarsal head or possible soft tissue gas X ray of Left foot - normal As per senior clinical study manager he does have hemorrhaged callused lesion to planar 5th MTP Rt foot No eveidence of osteomyelitis Had debridement done bed side Recommend to f/u with Pattern Attendant as an out pt closely Qualifiers: Non-pressure ulcer stage: limited to breakdown of skin Qualified Code(s): L97.521 - Non-pressure chronic ulcer of other part of left foot limited to breakdown of skin (4) Anemia due to chronic kidney disease Current Visit: Yes Status: Acute Assessment and plan: His Hb dropped down to 6.9 ..Could be dilutional.. He does have chronic anemia due to CKD s/p 1 U PRBC Hb improved to 8.0 Reviewed iron panel.. Iron -41 slightly lower will start daily FeSo4 (5) Elevated troponin Current Visit: No Status: Acute Assessment and plan: mostly due to demand ischemia trended down to normal will f/u on 2 D Echo (6) ERWIN (acute kidney injury) Current Visit: No Status: Acute Assessment and plan: Due to to sepsis , dehydration and medication side effect with Lasix and Metformin Improving cont IV hydration Nephro consulted avoid nephro toxic meds (7) SOB (shortness of breath) Current Visit: Yes Status: Acute Assessment and plan: Multi factorial..mostly due to sepsis since D dimer elevate d- V/Q scan was done in ER - showed low probability for PE No signs of DVT Will get 2 D Echo to r/o heart failure..he does have slightly elevated BNP could be due to ERWIN / CKD (8) Diabetes Current Visit: No Status: Chronic Assessment and plan: HbA1C - 6.4 Cont on ISS + levemir d/c Metformin due to CKD Qualifiers: Diabetes mellitus type: type 2 Diabetes mellitus complication status: with skin complications Diabetes mellitus complication detail: with foot ulcer Diabetes mellitus chcf insulin use: unspecified 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 Qualified Code(s): E11.621 - Type 2 diabetes mellitus with foot ulcer; L97.509 - Non-pressure chronic ulcer of other part of unspecified foot with unspecified severity; L97.509 - Non-pressure chronic ulcer of other part of unspecified foot with unspecified severity; L97.509 - Non-pressure chronic ulcer of other part of unspecified foot with unspecified severity; L97.509 - Non -pressure chronic ulcer of other part of unspecified foot with unspecified severity (9) Hyperlipidemia Current Visit: No Status: Acute Qualifiers: Hyperlipidemia type: unspecified Qualified Code(s): E78.5 - Hyperlipidemia , unspecified (10) Hypertension Current Visit: No Status: Chronic Assessment and plan: stable with current medication Will give hydralazine IV PRN too Qualifiers: Hypertension type: essential hypertension Qualified Code(s): I10 - Essential (primary) hypertension (11) Renal calculi Current Visit: Yes Status: Acute Assessment and plan: Reviewed CT ..no active stones now (12) CKD (chronic kidney disease) stage 3, GFR 30-59 ml/min Current Visit: Yes Status: Chronic - Subjective Interval history: Mr. 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 Pt did mentioned from last 2 days he has beenfeeling weak, lthergiac, developed RLQ abdominal pain with nausea and vomiting. He had CT of Abd and Pelvis done today which showed Rt perinpehric and periureteral soft tissue stranding with thickened bladder wall. Findings were consistent with recently passed calculus. His UA also positive for esterase and bacteria. Pt was admitted in the hospital with ERWIN with CKD-3 and Sepsis with UTI. Pt stated he is feeling better today. Denied any CP / SOB / Abd pain. Tolerating PO intake well. No N/V. No events over night - Constitutional Vitals: Temp Pulse Resp BP Pulse Ox 98.0 F 89 16 158/84 98 09/18/17 07:12 09/18/17 07:12 09/18/17 07:12 09/18/17 07:12 09/18/17 07:12 General appearance: Present: A&O X 3, no acute distress, answers questions appropriately - Head Head exam: Present: atraumatic, normal inspection - Respiratory Respiratory exam: Present: decreased breath sounds. Absent: rales, respiratory distress, rhonchi, wheezes - Cardiovascular Cardiovascular exam: Present: RRR, +S1, +S2. Absent: diastolic murmur, gallop, rubs, systolic murmur - GI/Abdominal GI/Abdominal exam: Present: normal bowel sounds, soft. Absent: rebound, rigid, tenderness - Extremities Exam Extremities exam: Present: pedal edema (trace). Absent: calf tenderness, tenderness Additional comments: chronic non healing ulcer over Left foot at base of 1st MTP joint noticed..No swelling / no erythema / no signs of acute infection noticed. He also have another small non healing ulcer over Rt great toe plantar region.. s/p debridement.. - Back Exam Back exam: Absent: CVA tenderness (L), CVA tenderness (R) - Psychiatric Psychiatric exam: Present: normal affect, normal mood Internal Medicine: Result - Labs CBC & Chem 7: 09/18/17 03:13 09/18/17 03:13 Labs: Short CBC 09/18/17 Range/Units 03:13 WBC 7.2 (4.3-11.1) K/mcL Hgb 8.0 L (12.9-16.9) g/dL Hct 24.9 L (37.5-50.1) % Plt Count 161 (140-400) K/mcL Neutrophils # 5.2 (1.6-8.9) K/mcL BMP 09/18/17 03:13 Sodium 139 Potassium 4.5 Chloride 116 H Carbon Dioxide 16 L BUN 40 H Creatinine 2.77 H Glucose 99 Calcium 7.9 L - ABG Interpretation ABG results: PT/INR, D-dimer PT 13.5 Seconds (9.4-12.1) H 09/16/17 10:30 D-Dimer 14380 ng/mLFEU (0-500) H 09/16/17 10:30 - Impressions Impressions Foot X-Ray 09/17/17 07:51 IMPRESSION: No definite osteomyelitis is identified. No radiopaque foreign body. D/ / Felix Pete MD / Felix Pete MD Interpreting Provider: Felix Pete MD Foot X-Ray 09/17/17 07:51 IMPRESSION: There is lucency overlying the 5th metatarsal head, which could be related to osteomyelitis, or possibly a soft tissue gas overlying this region. It is not well assessed on the lateral view. No obliques view. Soft tissue gas seen just lateral to the 5th metatarsal-phalangeal joint. Other chronic changes as above. D/ / Felix Pete MD / Felix Pete MD Interpreting Provider: Felix Pete MD Echocardiogram 09/17/17 15:57 Impressions: LVEF 60%. Mild left ventricular diastolic dysfunction. Normal right ventricular structure and function. No significant valvular dysfunction. No pulmonary hypertension by TR gradient. Left Ventricular Wall Motion: Rest Echo Findings All wall segments showed normal motion. Findings: Study Quality * Technically adequate exam. ECG Findings * Sinus tachycardia. Left Ventricle * LVEF 60%. * Mild left ventricular diastolic dysfunction. * Normal LV chamber size, wall thickness and function. Right Ventricle * Normal right ventricular structure and function. Left Atrium * Mildly dilated left atrium. Right Atrium * Normal right atrial size. Mitral Valve * Normal mitral valve structure. * No mitral stenosis. * Trace mitral regurgitation. Aortic Valve * No aortic regurgitation. * Aortic valve not well visualized. * No aortic stenosis. Tricuspid Valve * Tricuspid valve not well visualized. * No tricuspid regurgitation. * Estimated RA pressure is 3 mmHg. Pulmonic Valve * Pulmonic valve is not well visualized. * No pulmonic stenosis. * Trace pulmonic regurgitation. Pulmonary Artery * Pulmonary artery not well visualized. Aorta * Normally sized aortic root. Pericardium * There is no pericardial effusion present. Interatrial Septum * No evidence of PFO by color Doppler. IVC * The IVC is not dilated. Consult Discharge Plan - Plan Referrals: Chencho Murillo MD [Primary Care Provider] - 09/24/17 10:30 am (please follow up as schedule..)
--- NOTE | 2017-09-18 10:58 | Nephrology Progress Note ---
Date of Encounter: 09/18/17 Time of Encounter: 10:15 - Assessment and Plan (1) ERWIN (acute kidney injury) Current Visit: Yes Status: Acute ERWIN multifactorial and trending better. Non-oliguric. +Granular casts and suspect recent renal stone/UTI. Likely able to wean off IVF today Would not contnue metformin after d/c Iron def anemia: rec starting with oral Fe supplements Appreciate hospitalists No need for BATTERY CONTAINER TESTER ALUMINUM at this time. (2) CKD (chronic kidney disease) stage 3, GFR 30-59 ml/min Current Visit: Yes Status: Chronic Progressively worsening. Followed by Dr. Jules. (3) Anemia due to chronic kidney disease Current Visit: Yes Status: Acute Goal Hgb 10-11. Will assess for iron (IV vs PO) and/or KOBI (4) SOB (shortness of breath) Current Visit: Yes Status: Acute Improving (5) UTI (urinary tract infection) Current Visit: Yes Status: Acute Appreciate primary team. Qualifiers: Urinary tract infection type: site unspecified Hematuria presence: with hematuria Qualified Code(s): N39.0 - Urinary tract infection, site not specified; R31.9 - Hematuria, unspecified; R31.9 - Hematuria, unspecified (6) Hypertension Current Visit: Yes Status: Chronic Agree with BB. Cannot provide GEE or ARB d/t ERWIN. Qualifiers: Hypertension type: essential hypertension Qualified Code(s): I10 - Essential (primary) hypertension Subjective Principal diagnosis: ERWIN Interval history: Pt was s/e. He reported less shortness of breath. Said that his LE swelling is stable and appears normal to him (so no worse he affirmed). He did not affirm uremic complaitns (no change in appetite, N/V or confusion for example). Objective - Vital Signs Vital signs: Vital Signs Temp Pulse Resp BP Pulse Ox 09/18/17 07:12 98.0 F 89 16 158/84 98 09/18/17 03:33 98.3 F 93 16 158/90 98 09/18/17 00:19 98.3 F 90 16 147/83 99 09/17/17 20:00 98.2 F 90 16 140/72 99 09/17/17 18:52 98.3 F 100 16 145/86 100 09/17/17 16:45 98.3 F 100 16 144/84 100 09/17/17 16:44 98.3 F 100 16 144/84 100 09/17/17 16:30 98.5 F 60 14 157/50 09/17/17 16:19 98.6 F 97 16 143/80 98 09/17/17 15:53 98.6 F 97 18 143/80 99 Intake and Output 09/17/17 09/18/17 09/18/17 23:59 07:59 15:59 Intake Total 425 / 425 1000 / 1000 Output Total 500 / 500 Balance 425 / 425 500 / 500 Intake: IV Fluids 1000 / 1000 0.9 % Sodium Chloride 1,000 ML 1000 / 1000 @ 75 mls/hr IVC .[id number] ANAN[facility] Rx #:[id number] Blood Product 425 / 425 Rbcs Leuko Poor As-1 Unit 425 / 425 [id number] Output: Urine 500 / 500 Other: # Voids 3 Weight 122.3 kg Blood Glucose* 129 95 Patient Weight 09/18/17 23:59 Weight 122.3 kg - General Appearance Exam: General appearance: well-developed, well-nourished EENT: ATNC, mucous membranes moist, hearing intact, vision intact Neck: supple Respiratory: clear Cardiology: edema (minimal BLL edema), normal S1, normal S2 Gastrointestinal: no tenderness, no guarding Integumentary: warm and dry Neurologic: alert and oriented x3 Psychiatric: mood/affect appropriate, cooperative - Lab 09/20/17 04:57 09/20/17 04:57 Most recent lab results Calcium 7.9 mg/dL (8.6-10.8) L 09/18/17 03:13 Magnesium 2.0 mg/dL (1.6-2.6) 09/18/17 03:13 Consult Discharge Plan - Plan Referrals: Chencho Murillo MD [Primary Care Provider] - 09/24/17 10:30 am (please follow up as schedule..)
--- NOTE | 2017-09-18 13:15 | Podiatry Progress Note ---
Date of Encounter: 09/18/17 Time of Encounter: 12:15 - Assessment and Plan (1) Diabetic foot ulcer Current Visit: Yes Status: Acute Assessment: Overall significant improvement to ulceration of the right foot plantar lateral #5 MTP right foot. No pus, no odor, no periwound erythema, no probe to bone. Xray of right foot reviewed with Dr. Gomez no evidence of soft tissue gas to the 5th metatarsal head. Soft tissue erosions seen to the 5th metatarsal head. Plan: Ulcer irrigated with saline, dry sterile dressing applied. Continue wound care orders. Patient will need to f/u with Dr. Gomez in Podiatry clinic a week after discharge from the hospital. Qualifiers: Diabetic foot ulcer location: midfoot Diabetes mellitus type: type 2 Laterality: right Non-pressure ulcer stage: limited to breakdown of skin Qualified Code(s): E11.621 - Type 2 diabetes mellitus with foot ulcer; L97.411 - Non-pressure chronic ulcer of right heel and midfoot limited to breakdown of skin; L97.411 - Non-pressure chronic ulcer of right heel and midfoot limited to breakdown of skin; L97.411 - Non-pressure chronic ulcer of right heel and midfoot limited to breakdown of skin; L97.411 - Non-pressure chronic ulcer of right heel and midfoot limited to breakdown of skin (2) Non-healing ulcer of left foot Current Visit: Yes Status: Acute Assessment: Overall significant improvement to ulcer to the distal aspect of the left great toe. Xray of left foot reviewed with Dr. Gomez no evidence of bony erosion. Plan: Ulcer irrigated with saline, dry sterile dressing applied. Continue wound care orders. Patient will need to f/u with Dr. Gomez in Podiatry clinic a week after discharge from the hospital. 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 Dressings intact to both feet. Patient states feet are feeling much better today. No c/o fever, chills, or flu like symptoms. Objective - Vital Signs Vital Signs: Vital Signs Temp Pulse Resp BP Pulse Ox 09/18/17 10:55 98.2 F 82 16 159/87 98 09/18/17 07:12 98.0 F 89 16 158/84 98 09/18/17 03:33 98.3 F 93 16 158/90 98 09/18/17 00:19 98.3 F 90 16 147/83 99 09/17/17 20:00 98.2 F 90 16 140/72 99 09/17/17 18:52 98.3 F 100 16 145/86 100 09/17/17 16:45 98.3 F 100 16 144/84 100 09/17/17 16:44 98.3 F 100 16 144/84 100 09/17/17 16:30 98.5 F 60 14 157/50 09/17/17 16:19 98.6 F 97 16 143/80 98 09/17/17 15:53 98.6 F 97 18 143/80 99 Intake and Output 09/17/17 09/18/17 09/18/17 23:59 07:59 15:59 Intake Total 425 / 425 1000 / 1000 Output Total 500 / 500 350 / 350 Balance 425 / 425 500 / 500 -350 / -350 Intake: IV Fluids 1000 / 1000 0.9 % Sodium Chloride 1,000 ML 1000 / 1000 @ 75 mls/hr IVC .[id number] [facility] Rx #:[id number] Blood Product 425 / 425 Rbcs Leuko Poor As-1 Unit 425 / 425 [id number] Output: Urine 500 / 500 350 / 350 Other: # Voids 3 Weight 122.3 kg Blood Glucose* 129 95 146 Patient Weight 09/18/17 23:59 Weight 122.3 kg - Exam Exam: General appearance: alert awake oriented X 3. Calm and pleasant, no acute distress.. Vascular: Pedal pulses +2/4 DP/PT , No evidence of cyanosis, pallor or rubor, Edema graded at 1+/4, Skin Temperature warm, No calf pain with manual compression. capillary refill time is immediate to digits. Neurologic: Sensation diminished to both feet . 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 Ulcer #1: full thickness ulceration measuring 2 cm in length x 3.5 cm in width x 0.3 cm in depth extending laterally, base of wound is pink, no pus, no odor, no fluctuance, no exposed bone, ligament or tendon, no probe to bone, no periwound erythema. Full thickness ulcer the distal aspect of the left great toe secondary to static hammer toe deformity measuring 1 cm in diameter x 0.2 cm in depth, base of wound is red, no pus, no odor, no fluctuance, no exposed bone, ligament or tendon, no probe to bone, no periwound erythema. - Lab Result Diagrams: 09/18/17 03:13 09/18/17 03:13 Labs: Abnormal lab results RBC 2.83 M/mcL (4.19-5.50) L 09/18/17 03:13 Hgb 8.0 g/dL (12.9-16.9) L 09/18/17 03:13 Hct 24.9 % (37.5-50.1) L 09/18/17 03:13 RDW 14.7 % (11.5-14.5) H 09/18/17 03:13 Band Neutrophils % 13.0 % (0-4) H 09/16/17 10:30 Metamyelocytes % 2.0 % (0) H 09/16/17 10:30 Platelet Estimate Slight Decrease (Normal) L 09/17/17 04:16 PT 13.5 Seconds (9.4-12.1) H 09/16/17 10:30 D-Dimer 13194 ng/mLFEU (0-500) H 09/16/17 10:30 Chloride 116 mEq/L (98-109) H 09/18/17 03:13 Carbon Dioxide 16 mEq/L (19-29) L 09/18/17 03:13 BUN 40 mg/dL (8-26) H 09/18/17 03:13 Creatinine 2.77 mg/dL (0.72-1.25) H 09/18/17 03:13 Est GFR ( Amer) 30 (> 60) L 09/18/17 03:13 Est GFR (Non-Af Amer) 25 (> 60) L 09/18/17 03:13 POC Glucose 134 (58-89) H 09/17/17 10:46 Calcium 7.9 mg/dL (8.6-10.8) L 09/18/17 03:13 Iron 41 mcg/dL (65-175) L 09/18/17 03:13 Transferrin 115 mg/dL (174-364) L 09/18/17 03:13 Troponin I 0.05 ng/mL (0-0.03) H* 09/16/17 22:40 B-Natriuretic Peptide 852 pg/mL (0-100) H 09/16/17 10:30 Albumin 2.2 g/dL (3.5-5.0) L D 09/17/17 04:16 Globulin 4.2 g/dL (2.4-3.5) H 09/17/17 04:16 Albumin/Globulin Ratio 0.5 (1.1-2.2) L 09/17/17 04:16 Triglycerides 243 mg/dL (< 150) H 09/17/17 04:16 VLDL Cholesterol, Calc 49 mg/dL (< 31) H 09/17/17 04:16 HDL Cholesterol 22 mg/dL (40-59) L 09/17/17 04:16 Cholesterol/HDL Ratio 7.4 (0-4.9) H 09/17/17 04:16 Urine Protein >=1000 mg/dL (Neg-Trace) H 09/16/17 10:55 Urine Glucose (UA) 250 mg/dL (Normal) H 09/16/17 10:55 Urine Blood Large (Negative) H 09/16/17 10:55 Urine Microscopic RBC 3-5 per hpf (0-3) H 09/16/17 10:55 Urine Microscopic WBC 30-50 per hpf (0-3) H 09/16/17 10:55 Ur Squamous Epith Cells Many per lpf (None-Few) H 09/16/17 10:55 Amorphous Sediment Many (Few) H 09/16/17 10:55 Urine Bacteria Moderate per hpf (None-Few) H 09/16/17 10:55 Hyaline Casts Moderate per lpf (None-Few) H 09/16/17 10:55 Granular Casts Moderate per lpf (None Seen) H 09/16/17 10:55 Consult Discharge Plan - Plan Referrals: Chencho Murillo MD [Primary Care Provider] - 09/24/17 10:30 am (please follow up as schedule..)
[2017-09-18 19:43] LABS: Acinetobacter baumannii by PCR Not Detected (Not Detect); Candida albicans by PCR Not Detected (Not Detect); Candida glabrata by PCR Not Detected (Not Detect); Candida krusei by PCR Not Detected (Not Detect); Candida parapsilosis by PCR Not Detected (Not Detect); Candida tropicalis by PCR Not Detected (Not Detect); Enterococcus by PCR Not Detected (Not Detect); Escherichia coli by PCR Not Detected (Not Detect); Klebsiella oxytoca by PCR Not Detected (Not Detect); Klebsiella pneumoniae by PCR Not Detected (Not Detect); Pseudomonas aeruginosa by PCR Not Detected (Not Detect); Serratia marcescens by PCR Not Detected (Not Detect); Staphylococcus aureus by PCR Not Detected (Not Detect); Streptococcus agalactiae(B)PCR Not Detected (Not Detect); Streptococcus by PCR Not Detected (Not Detect); Streptococcus pneumoniae PCR Not Detected (Not Detect); Streptococcus pyogenes (A) PCR Not Detected (Not Detect); blaKPC Carbapenem-Resist Gene Not Detected (Not Detect); mecA Methicillin-Resist Gene Not Detected (Not Detect); vanA/B Vancomycin-Resist Genes Not Detected (Not Detect)
[2017-09-18] MEDS: Insulin DETEMIR 100 UNIT/ML X5UNITS SQ SCH (21:03)
[2017-09-19] MEDS: Ipratropium/Albuterol Neb 3 ML IH SCH ×6 (03:35→23:34)
[2017-09-19] MEDS: Albuterol 2.5 MG/3 ML NEBULIZER IH SCH ×6 (03:35→23:35)
[2017-09-19 03:49] LABS: Basophils % 0.4 %; Eosinophils # 0.2 K/mcL (0.0-0.6); Eosinophils % 2.4 %; Hematocrit 24.8 % (37.5-50.1); Immature Granulocytes % 0.4 % (0-4); Lymphocytes # 1.4 K/mcL (0.6-4.6); Lymphocytes % 20.4 %; Mean Corpuscular HGB Conc 32.3 g/dL (31.6-35.5); Mean Corpuscular Hemoglobin 27.5 pg (28.0-33.3); Mean Corpuscular Volume 85.2 fL (83.0-100.0); Mean Platelet Volume 10.4 fL (9.4-12.4); Monocytes # 0.7 K/mcL (0.0-1.3); Monocytes % 9.8 %; Neutrophils # 4.7 K/mcL (1.6-8.9); Platelet Count 169 K/mcL (140-400); Red Blood Count 2.91 M/mcL (4.19-5.50); Red Cell Distribution Width 14.7 % (11.5-14.5); Segmented Neutrophils % 66.6 %
[2017-09-19 03:59] LABS: Potassium 4.3 mEq/L (3.5-4.5)
[2017-09-19] MEDS: Insulin LISPRO 300 UNITS/3 ML VIAL SQ SCH ×4 (07:34→20:34)
[2017-09-19] MEDS: amLODIPine 5 MG TABLET PO SCH (07:58)
--- NOTE | 2017-09-19 08:44 | Nephrology Progress Note ---
Date of Encounter: 09/19/17 Time of Encounter: 08:42 - Assessment and Plan (1) ERWIN (acute kidney injury) Current Visit: No Status: Acute Kidney function continues to improve Scr 2.38 GFR 29 No need for STRIKER OUT at this time Recommend staying off Metformin Avoid nephrotoxins if possible (2) CKD (chronic kidney disease) stage 3, GFR 30-59 ml/min Current Visit: Yes Status: Chronic see above (3) Anemia Current Visit: Yes Status: Acute Hgb stable at 8.0 Goal 10-11 Start Ferrous sulfate 325mg p.o. daily Qualifiers: Anemia type: unspecified type Qualified Code(s): D64.9 - Anemia, unspecified (4) Sepsis Current Visit: Yes Status: Resolved Qualifiers: Sepsis type: sepsis due to unspecified organism Qualified Code(s): A41.9 - Sepsis, unspecified organism (5) UTI (urinary tract infection) Current Visit: Yes Status: Acute per primary team Qualifiers: Urinary tract infection type: site unspecified Hematuria presence: with hematuria Qualified Code(s): N39.0 - Urinary tract infection, site not specified; R31.9 - Hematuria, unspecified; R31.9 - Hematuria, unspecified Subjective Principal diagnosis: ERWIN, CKD stage 3, anemia, HTN Interval history: Patient seen and examined. Sitting up in bed eating breakfast. Objective - Vital Signs Vital signs: Vital Signs Temp Pulse Resp BP Pulse Ox 09/19/17 07:03 97.7 F 82 17 183/89 98 09/19/17 04:29 98.0 F 84 16 169/86 97 09/19/17 00:05 98.0 F 83 16 160/86 100 09/18/17 20:12 97.6 F 90 16 175/91 99 09/18/17 15:48 98.3 F 82 17 157/84 99 09/18/17 10:55 98.2 F 82 16 159/87 98 Intake and Output 09/18/17 09/19/17 09/19/17 23:59 07:59 15:59 Intake Total 240 / 240 Output Total 500 / 500 Balance -260 / -260 Intake: Oral 240 / 240 Output: Urine 500 / 500 Other: Meal Dinner Percent of Meal Consumed 100% Weight 122.583 kg Blood Glucose* 179 128 Patient Weight 09/19/17 23:59 Weight 122.583 kg - General Appearance General appearance: Present: well-developed, well-nourished EENT: Present: ATNC, mucous membranes moist, hearing intact, vision intact Neck: Present: supple Respiratory: Present: clear Cardiology: Present: no edema, normal S1, normal S2 Gastrointestinal: Present: no tenderness, no guarding Integumentary: Present: warm and dry Neurologic: Present: alert and oriented x3 Psychiatric: Present: mood/affect appropriate, cooperative - Lab 09/19/17 03:36 09/19/17 03:36 Most recent lab results Calcium 8.0 mg/dL (8.6-10.8) L 09/19/17 03:36 Magnesium 2.0 mg/dL (1.6-2.6) 09/19/17 03:36 Consult Discharge Plan - Plan Referrals: Chencho Murillo MD [Primary Care Provider] - 09/24/17 10:30 am (please follow up as schedule..)
--- NOTE | 2017-09-19 15:17 | Internal Med Progress Note ---
Date of Encounter: 09/19/17 Time of Encounter: 10:10 - Assessment and plan (1) Sepsis Current Visit: Yes Status: Resolved Assessment and plan: Improving WBC trended down to normal Initial blood culture with GPC in one bottle Repat blood culture done today 09/19 Urine culture is negative Continue Rocephin as patient improved on it Follow final sensitivity Qualifiers: Sepsis type: sepsis due to unspecified organism Qualified Code(s): A41.9 - Sepsis, unspecified organism (2) UTI (urinary tract infection) Current Visit: Yes Status: Acute Assessment and plan: Urine culture with no growth Qualifiers: Urinary tract infection type: site unspecified Hematuria presence: with hematuria Qualified Code(s): N39.0 - Urinary tract infection, site not specified; R31.9 - Hematuria, unspecified; R31.9 - Hematuria, unspecified (3) ERWIN (acute kidney injury) Current Visit: Yes Status: Acute Assessment and plan: Due to to sepsis , dehydration and medication side effect with Lasix and Metformin Improving Renal eval noted Cr continues to improve Avoid nephrotoxins D/C IVF (4) Anemia Current Visit: Yes Status: Chronic Assessment and plan: ACD with [facility]ELLE Continue Iron supplements Hb stable at 8 s/p 1 unit RBC on admission Qualifiers: Anemia type: other cause Other causes of anemia: other cause, not classified Qualified Code(s): D64.89 - Other specified anemias (5) Diabetes Current Visit: Yes Status: Chronic Assessment and plan: HbA1C - 6.4 Cont on ISS + levemir d/c Metformin due to CKD Qualifiers: Diabetes mellitus type: type 2 Diabetes mellitus complication status: with skin complications Diabetes mellitus complication detail: with foot ulcer Diabetes mellitus skilled nursing insulin use: unspecified skilled nursing insulin use status Qualified Code(s): E11.621 - Type 2 diabetes mellitus with foot ulcer; L97.509 - Non-pressure chronic ulcer of other part of unspecified foot with unspecified severity; L97.509 - Non-pressure chronic ulcer of other part of unspecified foot with unspecified severity; L97.509 - Non-pressure chronic ulcer of other part of unspecified foot with unspecified severity; L97.509 - Non -pressure chronic ulcer of other part of unspecified foot with unspecified severity (6) Hyperlipidemia Current Visit: Yes Status: Chronic Assessment and plan: Continue home meds Qualifiers: Hyperlipidemia type: unspecified Qualified Code(s): E78.5 - Hyperlipidemia , unspecified (7) Hypertension Current Visit: Yes Status: Chronic Assessment and plan: Uncontrolled this morning Added norvasc to current regimen Continue metoprolol Qualifiers: Hypertension type: essential hypertension Qualified Code(s): I10 - Essential (primary) hypertension (8) Elevated troponin Current Visit: Yes Status: Acute Assessment and plan: mostly due to demand ischemia trended down to normal ECHO with normal EF, no WMA, no significant valvular abnormalities Mild LVDD (9) Morbid obesity with BMI of 40.0-44.9, adult Current Visit: Yes Status: Chronic Assessment and plan: Encourage lifestyle modification (10) CKD (chronic kidney disease) stage 3, GFR 30-59 ml/min Current Visit: Yes Status: Chronic (11) Non-healing ulcer of left foot Current Visit: Yes Status: Acute Qualifiers: Non-pressure ulcer stage: limited to breakdown of skin Qualified Code(s): L97.521 - Non-pressure chronic ulcer of other part of left foot limited to breakdown of skin (12) Anemia due to chronic kidney disease Current Visit: Yes Status: Acute (13) Diabetic foot ulcer Current Visit: Yes Status: Chronic Assessment and plan: Wound care per podiatry Input appreciated Qualifiers: Diabetic foot ulcer location: midfoot Diabetes mellitus type: type 2 Laterality: right Non-pressure ulcer stage: limited to breakdown of skin Qualified Code(s): E11.621 - Type 2 diabetes mellitus with foot ulcer; L97.411 - Non-pressure chronic ulcer of right heel and midfoot limited to breakdown of skin; L97.411 - Non-pressure chronic ulcer of right heel and midfoot limited to breakdown of skin; L97.411 - Non-pressure chronic ulcer of right heel and midfoot limited to breakdown of skin; L97.411 - Non-pressure chronic ulcer of right heel and midfoot limited to breakdown of skin (14) Bacteremia Current Visit: Yes Status: Suspected Assessment and plan: One bottle with GPC, pending sensitivity, suspect contamination Repeat blood cultures ordered today 09/19 Will follow - Subjective Interval history: Seen and evaluated at bedside He is admitted and being managed for sespsis with suspected urinary source,ERWIN on CKD He has a PMH of DM with bilateral non-healing ulcers of both feet, anemia of chronic disease , Morbid Obesity, HTN, HLD He denies new complains States he is feeling better Blood culture from 09/16 with GPC in one bottle-possibly contaminant Patient is afebrile now and his WBC has normalized from admission - Constitutional Vitals: Temp Pulse Resp BP Pulse Ox 98.1 F 85 18 163/83 98 09/19/17 10:29 09/19/17 10:29 09/19/17 10:29 09/19/17 10:29 09/19/17 10:29 General appearance: Present: A&O X 3, morbidly obese, pleasant, no acute distress, answers questions appropriately - Head Head exam: Present: atraumatic, normocephalic - Eye Eye exam: Present: PERRL, conjuntiva pink, sclera anicteric Pupils: Present: PERRL - Neck Neck exam general surgery: Present: supple, trachea midline. Absent: lymphadenopathy - Respiratory Respiratory exam: Present: CTAB. Absent: accessory muscle use, rales, rhonchi, wheezes - Cardiovascular Cardiovascular exam: Present: RRR, +S1, +S2. Absent: diastolic murmur, gallop, rubs, systolic murmur - GI/Abdominal GI/Abdominal exam: Present: normal bowel sounds, soft, no peritoneal signs. Absent: distended, tenderness - Extremities Exam Additional comments: Bilateral wound dressings clean and dry. Pulses present - Neurological Exam Neurological exam: Present: alert, CN II-XII intact, oriented X3, no focal deficits. Absent: pronater drift, facial droop, speech deficit - Skin Skin exam: Present: dry Internal Medicine: Result - Labs CBC & Chem 7: 09/19/17 03:36 09/19/17 03:36 Labs: Short CBC 09/19/17 Range/Units 03:36 WBC 7.1 (4.3-11.1) K/mcL Hgb 8.0 L (12.9-16.9) g/dL Hct 24.8 L (37.5-50.1) % Plt Count 169 (140-400) K/mcL Neutrophils # 4.7 (1.6-8.9) K/mcL BMP 09/19/17 03:36 Sodium 138 Potassium 4.3 Chloride 115 H Carbon Dioxide 15 L BUN 29 H D Creatinine 2.38 H Glucose 145 H Calcium 8.0 L - ABG Interpretation ABG results: PT/INR, D-dimer PT 13.5 Seconds (9.4-12.1) H 09/16/17 10:30 D-Dimer [id number] ng/mLFEU (0-500) H 09/16/17 10:30 Consult Discharge Plan - Plan Referrals: Chencho Murillo MD [Primary Care Provider] - 09/24/17 10:30 am (please follow up as schedule..)
--- NOTE | 2017-09-19 17:29 | Podiatry Progress Note ---
Date of Encounter: 09/19/17 Time of Encounter: 12:15 - Assessment and Plan (1) Diabetic foot ulcer Current Visit: Yes Status: Chronic Assessment: Overall significant improvement to ulceration of the right foot plantar lateral #5 MTP right foot. No pus, no odor, no periwound erythema, no probe to bone. Xray of right foot reviewed with Dr. Gomez no evidence of soft tissue gas to the 5th metatarsal head. Soft tissue erosions seen to the 5th metatarsal head. Plan: Ulcer irrigated with saline, dry sterile dressing applied. With Maxorb, 4x4 dry sterile, with medipore. Continue wound care orders. Patient will need to f/u with Dr. Gomez in Podiatry clinic a week after discharge from the hospital. Qualifiers: Diabetic foot ulcer location: midfoot Diabetes mellitus type: type 2 Laterality: right Non-pressure ulcer stage: limited to breakdown of skin Qualified Code(s): E11.621 - Type 2 diabetes mellitus with foot ulcer; L97.411 - Non-pressure chronic ulcer of right heel and midfoot limited to breakdown of skin; L97.411 - Non-pressure chronic ulcer of right heel and midfoot limited to breakdown of skin; L97.411 - Non-pressure chronic ulcer of right heel and midfoot limited to breakdown of skin; L97.411 - Non-pressure chronic ulcer of right heel and midfoot limited to breakdown of skin (2) Non-healing ulcer of left foot Current Visit: Yes Status: Acute Assessment: Overall significant improvement to ulcer to the distal aspect of the left great toe. Xray of left foot reviewed with Dr. Gomez no evidence of bony erosion. Plan: Ulcer irrigated with saline, dry sterile dressing applied, maxorb, 4x4 dry gauze and medipore. Continue wound care orders. Patient will need to f/u with Dr. Gomez in Podiatry clinic a week after discharge from the hospital. Qualifiers: Non-pressure ulcer stage: limited to breakdown of skin Qualified Code(s): L97.521 - Non-pressure chronic ulcer of other part of left foot limited to breakdown of skin (3) Diabetes Current Visit: Yes Status: Chronic Qualifiers: Diabetes mellitus type: type 2 Diabetes mellitus complication status: with skin complications Diabetes mellitus complication detail: with foot ulcer Diabetes mellitus longterm insulin use: unspecified longterm insulin use status Qualified Code(s): E11.621 - Type 2 diabetes mellitus with foot ulcer; L97.509 - Non-pressure chronic ulcer of other part of unspecified foot with unspecified severity; L97.509 - Non-pressure chronic ulcer of other part of unspecified foot with unspecified severity; L97.509 - Non-pressure chronic ulcer of other part of unspecified foot with unspecified severity; L97.509 - Non -pressure chronic ulcer of other part of unspecified foot with unspecified severity Subjective Principal diagnosis: ERWIN, CKD stage 3, anemia, HTN Interval history: Patient is sitting up in bed. Dressings intact to both feet. Patient states feet are feeling better. States he is suppose to be discharge tomorrow. No c/ o fever, chills, or flu like symptoms. Objective - Vital Signs Vital Signs: Vital Signs Temp Pulse Resp BP Pulse Ox 09/19/17 15:37 97.8 F 84 17 171/88 96 09/19/17 10:29 98.1 F 85 18 163/83 98 09/19/17 07:03 97.7 F 82 17 183/89 98 09/19/17 04:29 98.0 F 84 16 169/86 97 09/19/17 00:05 98.0 F 83 16 160/86 100 09/18/17 20:12 97.6 F 90 16 175/91 99 Intake and Output 09/19/17 09/19/17 09/19/17 07:59 15:59 23:59 Other: Weight 122.583 kg Blood Glucose* 128 228 Patient Weight 09/19/17 23:59 Weight 122.583 kg - Exam Exam: General appearance: alert awake oriented X 3. Calm and pleasant, no acute distress.. Vascular: Pedal pulses +2/4 DP/PT , No evidence of cyanosis, pallor or rubor, Edema graded at 1+/4, Skin Temperature warm, No calf pain with manual compression. capillary refill time is immediate to digits. Neurologic: Sensation diminished to both feet . 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 Ulcer #1: full thickness ulceration measuring 2 cm in length x 3.5 cm in width x 0.3 cm in depth extending laterally, base of wound is pink, no pus, no odor, no fluctuance, no exposed bone, ligament or tendon, no probe to bone, no periwound erythema. Full thickness ulcer the distal aspect of the left great toe secondary to static hammer toe deformity measuring 1 cm in diameter x 0.2 cm in depth, base of wound is red, no pus, no odor, no fluctuance, no exposed bone, ligament or tendon, no probe to bone, no periwound erythema. - Lab Result Diagrams: 09/19/17 03:36 09/19/17 03:36 Labs: Abnormal lab results RBC 2.91 M/mcL (4.19-5.50) L 09/19/17 03:36 Hgb 8.0 g/dL (12.9-16.9) L 09/19/17 03:36 Hct 24.8 % (37.5-50.1) L 09/19/17 03:36 MCH 27.5 pg (28.0-33.3) L 09/19/17 03:36 RDW 14.7 % (11.5-14.5) H 09/19/17 03:36 Band Neutrophils % 13.0 % (0-4) H 09/16/17 10:30 Metamyelocytes % 2.0 % (0) H 09/16/17 10:30 Platelet Estimate Slight Decrease (Normal) L 09/17/17 04:16 PT 13.5 Seconds (9.4-12.1) H 09/16/17 10:30 D-Dimer 69709 ng/mLFEU (0-500) H 09/16/17 10:30 Chloride 115 mEq/L (98-109) H 09/19/17 03:36 Carbon Dioxide 15 mEq/L (19-29) L 09/19/17 03:36 BUN 29 mg/dL (8-26) H D 09/19/17 03:36 Creatinine 2.38 mg/dL (0.72-1.25) H 09/19/17 03:36 Est GFR ( Amer) 35 (> 60) L 09/19/17 03:36 Est GFR (Non-Af Amer) 29 (> 60) L 09/19/17 03:36 Glucose 145 mg/dL (70-99) H 09/19/17 03:36 POC Glucose 228 (58-89) H 09/19/17 15:41 Calcium 8.0 mg/dL (8.6-10.8) L 09/19/17 03:36 Iron 41 mcg/dL (65-175) L 09/18/17 03:13 Transferrin 115 mg/dL (174-364) L 09/18/17 03:13 Troponin I 0.05 ng/mL (0-0.03) H* 09/16/17 22:40 B-Natriuretic Peptide 852 pg/mL (0-100) H 09/16/17 10:30 Albumin 2.2 g/dL (3.5-5.0) L D 09/17/17 04:16 Globulin 4.2 g/dL (2.4-3.5) H 09/17/17 04:16 Albumin/Globulin Ratio 0.5 (1.1-2.2) L 09/17/17 04:16 Triglycerides 243 mg/dL (< 150) H 09/17/17 04:16 VLDL Cholesterol, Calc 49 mg/dL (< 31) H 09/17/17 04:16 HDL Cholesterol 22 mg/dL (40-59) L 09/17/17 04:16 Cholesterol/HDL Ratio 7.4 (0-4.9) H 09/17/17 04:16 Urine Protein >=1000 mg/dL (Neg-Trace) H 09/16/17 10:55 Urine Glucose (UA) 250 mg/dL (Normal) H 09/16/17 10:55 Urine Blood Large (Negative) H 09/16/17 10:55 Urine Microscopic RBC 3-5 per hpf (0-3) H 09/16/17 10:55 Urine Microscopic WBC 30-50 per hpf (0-3) H 09/16/17 10:55 Ur Squamous Epith Cells Many per lpf (None-Few) H 09/16/17 10:55 Amorphous Sediment Many (Few) H 09/16/17 10:55 Urine Bacteria Moderate per hpf (None-Few) H 09/16/17 10:55 Hyaline Casts Moderate per lpf (None-Few) H 09/16/17 10:55 Granular Casts Moderate per lpf (None Seen) H 09/16/17 10:55 Microbiology, Last 48 Hours 09/18/17 00:22 Urine Culture - Final Urine,Clean Catch No growth. Consult Discharge Plan - Plan Referrals: Chencho Murillo MD [Primary Care Provider] - 09/24/17 10:30 am (please follow up as schedule..)
[2017-09-19] MEDS: Insulin DETEMIR 100 UNIT/ML X5UNITS SQ SCH (20:34)
[2017-09-20] MEDS: Albuterol 2.5 MG/3 ML NEBULIZER IH SCH ×3 (03:49→11:34)
[2017-09-20] MEDS: Ipratropium/Albuterol Neb 3 ML IH SCH ×3 (03:49→11:34)
[2017-09-20 05:33] LABS: Basophils % 0.3 %; Calcium 8.3 mg/dL (8.6-10.8); Eosinophils # 0.2 K/mcL (0.0-0.6); Eosinophils % 2.4 %; Hematocrit 27.3 % (37.5-50.1); Hemoglobin 8.7 g/dL (12.9-16.9); Immature Granulocytes % 0.7 % (0-4); Lymphocytes # 2.1 K/mcL (0.6-4.6); Lymphocytes % 23.9 %; Mean Corpuscular HGB Conc 31.9 g/dL (31.6-35.5); Mean Corpuscular Hemoglobin 27.5 pg (28.0-33.3); Mean Corpuscular Volume 86.4 fL (83.0-100.0); Mean Platelet Volume 10.2 fL (9.4-12.4); Monocytes # 0.8 K/mcL (0.0-1.3); Neutrophils # 5.5 K/mcL (1.6-8.9); Platelet Count 207 K/mcL (140-400); Potassium 4.2 mEq/L (3.5-4.5); Red Blood Count 3.16 M/mcL (4.19-5.50); Red Cell Distribution Width 14.5 % (11.5-14.5); Segmented Neutrophils % 63.7 %
[2017-09-20] MEDS: amLODIPine 5 MG TABLET PO SCH (08:04)
[2017-09-20] MEDS: Insulin LISPRO 300 UNITS/3 ML VIAL SQ SCH ×2 (08:04→12:04)
--- NOTE | 2017-09-20 10:38 | Discharge Summary ---
Date of Encounter: 09/20/17 Time of Encounter: 10:37 - Discharge Diagnosis (1) Sepsis Priority: Primary Status: Resolved Comments: Ruled out Patient was admitted for presumed sepsis with low grade fever, tachycardia and leukocytosis Presumed source of infection was urine Patient was started on Ceftriaxone empirically His blood cultures are negative X2, urine cultures negative His signs and symptoms could have been due to dehydration He will be discharged on 5 more days of Cephalosporins Follow up with PCP Qualifiers: Sepsis type: sepsis due to unspecified organism Qualified Code(s): A41.9 - Sepsis, unspecified organism (2) UTI (urinary tract infection) Priority: Primary Status: Ruled-out Comments: Ruled out, urine culture was negative Qualifiers: Urinary tract infection type: site unspecified Hematuria presence: with hematuria Qualified Code(s): N39.0 - Urinary tract infection, site not specified; R31.9 - Hematuria, unspecified; R31.9 - Hematuria, unspecified (3) ERWIN (acute kidney injury) Priority: Primary Status: Resolved Comments: Due to to presumed sepsis , dehydration and medication side effect with Lasix and Metformin Resolved and creatinine back to baseline Follow up with nephrology as out-patient (4) Anemia Priority: Secondary Status: Chronic Comments: ACD with [facility] Continue Iron supplements, discharged with same Hb stable at 8 s/p 1 unit RBC on admission Qualifiers: Anemia type: other cause Other causes of anemia: other cause, not classified Qualified Code(s): D64.89 - Other specified anemias (5) Diabetes Priority: Secondary Status: Chronic Comments: HbA1C - 6.4 Discharged on insulin only Metformin discontinued Qualifiers: Diabetes mellitus type: type 2 Diabetes mellitus complication status: with skin complications Diabetes mellitus complication detail: with foot ulcer Diabetes mellitus longterm insulin use: unspecified intermission coordinator insulin use status Qualified Code(s): E11.621 - Type 2 diabetes mellitus with foot ulcer; L97.509 - Non-pressure chronic ulcer of other part of unspecified foot with unspecified severity; L97.509 - Non-pressure chronic ulcer of other part of unspecified foot with unspecified severity; L97.509 - Non-pressure chronic ulcer of other part of unspecified foot with unspecified severity; L97.509 - Non -pressure chronic ulcer of other part of unspecified foot with unspecified severity (6) Hyperlipidemia Priority: Secondary Status: Chronic Qualifiers: Hyperlipidemia type: unspecified Qualified Code(s): E78.5 - Hyperlipidemia , unspecified (7) Hypertension Priority: Secondary Status: Chronic Qualifiers: Hypertension type: essential hypertension Qualified Code(s): I10 - Essential (primary) hypertension (8) Elevated troponin Priority: Primary Status: Resolved Comments: mostly due to demand ischemia trended down to normal ECHO with normal EF, no WMA, no significant valvular abnormalities Mild LVDD (9) Morbid obesity with BMI of 40.0-44.9, adult Priority: Secondary Status: Chronic Comments: Lifestyle changes (10) CKD (chronic kidney disease) stage 3, GFR 30-59 ml/min Priority: Secondary Status: Chronic (11) Non-healing ulcer of left foot Priority: Primary Status: Acute Comments: No evidence of infection Continue wound dressing at home-per patient, family members do his dressing Follow up with podiatry Qualifiers: Non-pressure ulcer stage: limited to breakdown of skin Qualified Code(s): L97.521 - Non-pressure chronic ulcer of other part of left foot limited to breakdown of skin (12) Anemia due to chronic kidney disease Priority: Secondary Status: Acute (13) Diabetic foot ulcer Priority: Secondary Status: Chronic Qualifiers: Diabetic foot ulcer location: midfoot Diabetes mellitus type: type 2 Laterality: right Non-pressure ulcer stage: limited to breakdown of skin Qualified Code(s): E11.621 - Type 2 diabetes mellitus with foot ulcer; L97.411 - Non-pressure chronic ulcer of right heel and midfoot limited to breakdown of skin; L97.411 - Non-pressure chronic ulcer of right heel and midfoot limited to breakdown of skin; L97.411 - Non-pressure chronic ulcer of right heel and midfoot limited to breakdown of skin; L97.411 - Non-pressure chronic ulcer of right heel and midfoot limited to breakdown of skin (14) Bacteremia Priority: Primary Status: Suspected Comments: Ruled out Initial blood culture showed GPC, now shows normal Repeat blood culture negative - Discharge Medications Prescriptions: Cefdinir [Omnicef] 300 mg PO DAILY #5 capsule Ferrous Sulfate 325 mg PO DAILY #30 tablet Sodium Bicarbonate 650 mg PO BID #60 tablet Home Medications: Furosemide [Lasix] 40 mg PO DAILY 09/03/16 [History] Insulin DETEMIR [Levemir Flextouch] 40 unit SQ HS 09/03/16 [History] Aspirin Enteric Coated [Aspirin EC] 325 mg PO DAILY 30 Days tablet. 09/04/16 [Rx] Clopidogrel [Plavix] 75 mg PO DAILY 30 Days tablet 09/04/16 [Rx] Metoprolol [Lopressor] 25 mg PO BID 30 Days tablet 09/04/16 [Rx] Simvastatin [Zocor] 40 mg PO HS 30 Days tablet 09/04/16 [Rx] Cefdinir [Omnicef] 300 mg PO DAILY #5 capsule 09/20/17 [Rx] Ferrous Sulfate 325 mg PO DAILY #30 tablet 09/20/17 [Rx] Sodium Bicarbonate 650 mg PO BID #60 tablet 09/20/17 [Rx] amLODIPine [Norvasc] 10 mg PO DAILY #0 09/20/17 [Rx] Allergies/Adverse Reactions: 3 Allergy/AdvReac Type Severity Reaction Status Date / Time No Known Allergies Allergy Verified 06/11/17 15:06 Date of admission: 09/16/17 17:50 Primary care physician: Chencho Murillo MD Consults: 09/17/17 07:51 Consult to Podiatry [CONS] Routine Consulting Provider: [facility] Reason for Consult: chornic non healing ulcer over Left foot Call Completed: Yes Discharging clinician: You Mcdermott Anticipated date of discharge: 09/20/17 - Patient Status Disposition: Home, Self-Care Condition: Good Functional capacity at discharge: independent ambulation Overall status at discharge: patient is back to baseline - Discharge Instructions Follow Up With: Chencho Murillo MD [Primary Care Provider] - 09/24/17 10:30 am (please follow up as schedule..) Kong Jules MD [Partnered Physician] - 10/30/17 11:00 am (Please follow up as schedule...) Gabriel Gomez DPM [Partnered Physician] - - Diet and Activity Activity: resume usual activities as tolerated Diet: diabetic diet, low fat, low cholesterol, low salt diet, other (renal) Interval History: See below Hospital course: Mr. Kumar is a 47 year old male He is admitted for management of presumed sepsis, ERWIN on CKD, Acute on chronic anemia Seen at bedside this morning No new complains Clinically improved and stable to be discharged home Details of hospital course as in comments on each diagnoses Follow up with PCP , Renal and Podiatry - Time Spent with Patient Total time spent providing and/or coordinating discharge services: Greater than 30 minutes - Constitutional Vitals: Temp Pulse Resp BP Pulse Ox 97.9 F 86 18 169/98 97 09/20/17 07:56 09/20/17 07:56 09/20/17 07:56 09/20/17 07:56 09/20/17 07:56 General appearance: Present: A&O X 3, morbidly obese, pleasant, no acute distress, answers questions appropriately - Head Head exam: Present: atraumatic, normocephalic - Eye Eye exam: Present: PERRL, conjuntiva pink, sclera anicteric Pupils: Present: PERRL - Neck Neck exam general surgery: Present: supple, trachea midline. Absent: lymphadenopathy - Respiratory Respiratory exam: Present: CTAB. Absent: accessory muscle use, rales, rhonchi, wheezes - Cardiovascular Cardiovascular exam: Present: RRR, +S1, +S2. Absent: diastolic murmur, gallop, rubs, systolic murmur - GI/Abdominal GI/Abdominal exam: Present: normal bowel sounds, soft, no peritoneal signs. Absent: distended, tenderness - Extremities Exam Additional comments: Bilateral wound dressings clean and dry. Pulses present - Neurological Exam Neurological exam: Present: alert, CN II-XII intact, oriented X3, no focal deficits. Absent: pronater drift, facial droop, speech deficit - Skin Skin exam: Present: dry
--- NOTE | 2017-09-20 11:02 | Nephrology Progress Note ---
Date of Encounter: 09/20/17 Time of Encounter: 10:59 - Assessment and Plan (1) ERWIN (acute kidney injury) Current Visit: Yes Status: Acute Patient with ERWIN on CKD that seems to be improving. Likely source of ERWIN was sepsis. (2) Anemia Current Visit: Yes Status: Acute Anemia secondary to renal dysfunction. No active bleeding. (3) Non-healing ulcer of left foot Current Visit: Yes Status: Acute Per podiatry and primary team. Qualifiers: Non-pressure ulcer stage: limited to breakdown of skin Qualified Code(s): L97.521 - Non-pressure chronic ulcer of other part of left foot limited to breakdown of skin (4) CKD (chronic kidney disease) stage 3, GFR 30-59 ml/min Current Visit: Yes Status: Chronic I recommend BMP one week post discharge. Follow-up in clinic in 4-6 weeks. (5) Hypertension Current Visit: Yes Status: Chronic Blood pressure uncontrolled. Consider titration of metoprolol. Re-initiate diuretic once renal function is stable. Qualifiers: Hypertension type: essential hypertension Qualified Code(s): I10 - Essential (primary) hypertension (6) Morbid obesity with BMI of 40.0-44.9, adult Current Visit: Yes Status: Chronic Outpatient management. Subjective Principal diagnosis: ERWIN Interval history: Mr. Kumar is a 47 yo man with CKD in with sepsis. He reports that he feels well. No new complaint. His review of systems is overall stable. Objective - Vital Signs Vital signs: Vital Signs Temp Pulse Resp BP Pulse Ox 09/20/17 07:56 97.9 F 86 18 169/98 97 09/20/17 04:38 97.8 F 80 18 169/70 98 09/19/17 23:05 97.8 F 96 17 173/74 97 09/19/17 18:42 97.5 F L 94 16 174/87 98 09/19/17 15:37 97.8 F 84 17 171/88 96 Intake and Output 09/19/17 09/20/17 09/20/17 23:59 07:59 15:59 Other: Weight 120.656 kg Blood Glucose* 171 143 Patient Weight 09/20/17 23:59 Weight 120.656 kg - General Appearance General appearance: Present: well-developed, well-nourished EENT: Present: ATNC Neck: Present: supple Respiratory: Present: clear Cardiology: Present: edema, regular rate Gastrointestinal: Present: obese Integumentary: Present: warm and dry Neurologic: Present: alert and oriented x3 Musculoskeletal: Present: no cyanosis Psychiatric: Present: mood/affect appropriate - Lab 09/20/17 04:57 09/20/17 04:57 Most recent lab results Calcium 8.3 mg/dL (8.6-10.8) L 09/20/17 04:57 Magnesium 2.0 mg/dL (1.6-2.6) 09/19/17 03:36 Consult Discharge Plan - Plan Referrals: Chencho Murillo MD [Primary Care Provider] - 09/24/17 10:30 am (please follow up as schedule..) Kong Jules MD [Partnered Physician] - 10/30/17 11:00 am (Please follow up as schedule...) Prescriptions: Cefdinir [Omnicef] 300 mg PO DAILY #5 capsule Ferrous Sulfate 325 mg PO DAILY #30 tablet Sodium Bicarbonate 650 mg PO BID #60 tablet
[2017-09-20 11:42] VITALS: BP 172/99
[2017-09-20] MEDS ORDERED: Furosemide 40 MG TABLET PO SCH (12:00)
[2017-09-21] MEDS ORDERED: cefTRIAXone 2,000 MG in Water for inj. (sterile) 10 ML IVP SCH (09:00)
== END 2017-09-20 12:54 | disposition home or self-care (01) | DRG 469 ==
LOC: 2ANU 10:01 → EMEROO 10:01 → SUATTDRO 14:05 → 2ANU 14:54 → SUATTDRO 17:50
PROVIDERS: ADMIT Internal Medicine; ATTEND Internal Medicine

== ENCOUNTER 2019-03-20 09:58 | Inpatient (IN) ==
--- NOTE | 2019-03-20 10:01 | Emergency Department Note ---
Disposition Clinical Impression: Osteomyelitis of toe of left foot, Chronic anemia, Acute kidney injury Disposition: Admitted As Inpatient Condition: Good Referrals: Chencho Murillo MD [Primary Care Provider] - Forms: ED Satisfaction Letter Time of Disposition: 11:30 Skin/Abscess/FB HPI Chief complaint: ED Skin/Abscess/Foreign Body Stated complaint: Abscess Time Seen by Provider: 03/20/19 10:01 Source: patient Mode of arrival: ambulatory Limitations: no limitations Nursing Notes Reviewed: Yes Vital Signs Reviewed: Yes HPI Narrative: Patient is a 48-year-old male with past medical history of diabetes, hypertension, hyperlipidemia, renal disease. He presents today as a referral from podiatry office due to concern for osteomyelitis of the fourth digit of the left foot. Patient states that around a week ago, he fell and broke his fourth digit on the left foot. He does note that there was an open lesion at that time. He said that he was given a course of 7 days of antibiotics by a physician. He is unsure what medication he was on. He states that he followed up with podiatry yesterday and had an MRI of the foot. MRI results are below. Patient states that he was sent here by podiatry office for admission for IV antibiotics and possible surgery on Saturday. Patient denies any current pain. He may have decreased sensation from peripheral neuropathy. He has noted redness, drainage. Denies any nausea, vomiting, fevers, diarrhea, abdominal pain, dysuria, hematuria. Denies any allergies to any antibiotics. 1. Soft tissue swelling and complex heterogeneous T2 collection of the 4th digit compatible with abscess versus phlegmon. There is underlying osteomyelitis and pathologic fracture of the 4th toe. 2. Ulceration of the medial soft tissues of the foot with no underlying fluid collection identified. Home Medications Medication Instructions Recorded Confirmed Furosemide [Lasix] 40 mg PO DAILY 09/03/16 09/25/17 Insulin DETEMIR [Levemir Flextouch] 40 unit SQ HS 09/03/16 09/25/17 Previous Rx's Medication Instructions Recorded Aspirin Enteric Coated [Aspirin EC] 325 mg PO DAILY 30 Days tablet. 09/04/16 Clopidogrel [Plavix] 75 mg PO DAILY 30 Days tablet 09/04/16 Metoprolol [Lopressor] 25 mg PO BID 30 Days tablet 09/04/16 Simvastatin [Zocor] 40 mg PO HS 30 Days tablet 09/04/16 Cefdinir [Omnicef] 300 mg PO DAILY #5 capsule 09/20/17 Ferrous Sulfate 325 mg PO DAILY #30 tablet 09/20/17 Sodium Bicarbonate 650 mg PO BID #60 tablet 09/20/17 amLODIPine [Norvasc] 10 mg PO DAILY #0 09/20/17 HYDROcodone/Acet 5/325 mg [[place] 1 tab PO Q6H PRN #42 tab 12/12/17 5-325 mg] Allergies Allergy/AdvReac Type Severity Reaction Status Date / Time No Known Allergies Allergy Verified 12/12/17 09:52 Past Medical History - Past Medical History Attestation: Yes The following information was validated with the patient. Source: patient Medical history: Reports: diabetes, hyperlipidemia, hypertension, renal disease Surgical history: Reports: orthopedic, other Psychiatric history: Reports: anxiety, depression - Social History Smoking Status: Unknown if ever smoked Smokeless Tobacco Status: No Alcohol use: Reports: none Drug use: Reports: none Physical Exam - General Limitations: no limitations General appearance: alert, in no apparent distress - Head Head exam: atraumatic, normocephalic, normal inspection - Eye Eye exam: Present: normal appearance, PERRL, EOMI - ENT ENT exam: normal exam, normal oropharynx, mucous membranes moist - Neck Neck exam: Present: normal inspection, full ROM, trachea midline - Chest Chest inspection: Present: normal inspection, symmetric chest wall rise - Respiratory Respiratory exam: Present: normal lung sounds bilaterally - Cardiovascular Cardiovascular exam: Present: normal rhythm, tachycardia, normal heart sounds - Abdominal Exam Abdominal exam: Present: soft, Non-Tender. Absent: tenderness, distention, guarding, rebound, rigidity - Extremities Exam Extremities exam: Present: other (Amputation of the fifth digit of the left foot. Lesion near the base of the left fourth digit on the dorsal aspect that is open, tracks deep presumably to bone, localized erythema. Also erythema of the second entire digit of the left toe. Mild decreased sensation of the left foot. Otherwise capillary refill within normal limits.) Course Course Narrative: Amputation of the fifth digit of the left foot. Lesion near the base of the left fourth digit on the dorsal aspect that is open, tracks deep presumably to bone, localized erythema. Also erythema of the second entire digit of the left toe. Mild decreased sensation of the left foot. Otherwise capillary refill within normal limits. MRI shows: 1. Soft tissue swelling and complex heterogeneous T2 collection of the 4th digit compatible with abscess versus phlegmon. There is underlying osteomyelitis and pathologic fracture of the 4th toe. 2. Ulceration of the medial soft tissues of the foot with no underlying fluid collection identified. I spoke with podiatry administration assistant, Dr. Gomez. He was familiar with the patient. He did not request any further imaging at this time. He was good with the plan of obtaining basic blood work, CRP, ESR, ulcers and lactic and then giving the patient vancomycin and Zosyn empirically. Patient is a diabetic and would like to cover staph, strep, Pseudomonas. Of note, patient expressed concern about obtaining an IV. He refused IVs and bilateral upper arms or neck. He would only accept an IV in his hand. He states that he is a tough stick and did not want to be poked anywhere else besides his hand. We expressed importance of obtaining IV access and patient states understanding. We will admit to ho spitalist after blood work returns. 11:16 labs show elevated ESR and CRP. Mild chronic anemia. Patient does have a history of chronic kidney disease but also appears to have acute kidney injury. Fluids have been given. We will admit for further care at this time. 11:[address] Floyd Vital Signs Temperature 97.7 F 03/20/19 10:04 Pulse Rate 108 03/20/19 10:04 Respiratory Rate 18 03/20/19 10:04 Blood Pressure 193/103 03/20/19 10:04 O2 Sat by Pulse Oximetry 100 03/20/19 10:04 Temperature 97.7 F 03/20/19 10:04 Pulse Rate 108 03/20/19 10:04 Respiratory Rate 18 03/20/19 10:04 Blood Pressure 193/103 03/20/19 10:04 O2 Sat by Pulse Oximetry 100 03/20/19 10:04 Oxygen Delivery Oxygen Delivery Room Air Skin/Abscess/Foreign Body - MDM Narrative Medical decision making narrative: Amputation of the fifth digit of the left foot. Lesion near the base of the left fourth digit on the dorsal aspect that is open, tracks deep presumably to bone, localized erythema. Also erythema of the second entire digit of the left toe. Mild decreased sensation of the left foot. Otherwise capillary refill within normal limits. MRI shows: 1. Soft tissue swelling and complex heterogeneous T2 collection of the 4th digit compatible with abscess versus phlegmon. There is underlying osteomyelitis and pathologic fracture of the 4th toe. 2. Ulceration of the medial soft tissues of the foot with no underlying fluid collection identified. I spoke with podiatry administration assistant, Dr. Gomez. He was familiar with the patient. He did not request any further imaging at this time. He was good with the plan of obtaining basic blood work, CRP, ESR, ulcers and lactic and then giving the patient vancomycin and Zosyn empirically. Patient is a diabetic and would like to cover staph, strep, Pseudomonas. Of note, patient expressed concern about obtaining an IV. He refused IVs and bilateral upper arms or neck. He would only accept an IV in his hand. He states that he is a tough stick and did not want to be poked anywhere else besides his hand. We expressed importance of obtaining IV access and patient states understanding. We will admit to hospitalist after blood work returns. 11:16 labs show elevated ESR and CRP. Mild chronic anemia. Patient does have a history of chronic kidney disease but also appears to have acute kidney injury. Fluids have been given. We will admit for further care at this time. 11:[address] Floyd - Medical Records Medical records reviewed: Yes I reviewed the patient's medical records. - Lab Data Lab results reviewed: Yes I reviewed the patient's lab results. Result diagrams: 03/20/19 10:11 03/20/19 10:35 Lab Results 03/20/19 03/20/19 03/20/19 Range/Units 10:11 10:35 10:35 WBC 9.7 (4.3-11.1) K/mcL RBC 3.32 L (4.19-5.50) M/mcL Hgb 9.2 L (12.9-16.9) g/dL Hct 29.3 L (37.5-50.1) % MCV 88.3 (83.0-100.0) fL MCH 27.7 L (28.0-33.3) pg MCHC 31.4 L (31.6-35.5) g/dL RDW 13.7 (11.5-14.5) % Plt Count 326 (140-400) K/mcL MPV 9.6 (9.4-12.4) fL Immature Gran % 0.6 (0-4) % Seg Neutrophils % 68.4 % Lymphocytes % 22.8 % Monocytes % 5.5 % Eosinophils % 2.0 % Basophils % 0.7 % Neutrophils # 6.7 (1.6-8.9) K/mcL Lymphocytes # 2.2 (0.6-4.6) K/mcL Monocytes # 0.5 (0.0-1.3) K/mcL Eosinophils # 0.2 (0.0-0.6) K/mcL Basophils # 0.1 (0.0-0.2) K/mcL ESR 92 H (0-10) mm/hr Sodium 135 L (136-145) mEq/L Potassium 4.9 (3.5-5.1) mEq/L Chloride 111 H (98-107) mEq/L Carbon Dioxide 18 L (23-29) mEq/L BUN 45 H (6-20) mg/dL Creatinine 3.43 H (0.70-1.30) mg/dL Est GFR ( Amer) 23 L (> 60) Est GFR (Non-Af Amer) 19 L (> 60) BUN/Creatinine Ratio 13 (6-26) Glucose 221 H (70-105) mg/dL Calculated Osmolality 298 (280-300) Lactic Acid (0.5-2.2) mmol/L Calcium 8.6 (8.6-10.3) mg/dL C-Reactive Protein 10 H (Less than 10) mg/L 03/20/19 Range/Units 10:35 WBC (4.3-11.1) K/mcL RBC (4.19-5.50) M/mcL Hgb (12.9-16.9) g/dL Hct (37.5-50.1) % MCV (83.0-100.0) fL MCH (28.0-33.3) pg MCHC (31.6-35.5) g/dL RDW (11.5-14.5) % Plt Count (140-400) K/mcL MPV (9.4-12.4) fL Immature Gran % (0-4) % Seg Neutrophils % % Lymphocytes % % Monocytes % % Eosinophils % % Basophils % % Neutrophils # (1.6-8.9) K/mcL Lymphocytes # (0.6-4.6) K/mcL Monocytes # (0.0-1.3) K/mcL Eosinophils # (0.0-0.6) K/mcL Basophils # (0.0-0.2) K/mcL ESR (0-10) mm/hr Sodium (136-145) mEq/L Potassium (3.5-5.1) mEq/L Chloride (98-107) mEq/L Carbon Dioxide (23-29) mEq/L BUN (6-20) mg/dL Creatinine (0.70-1.30) mg/dL Est GFR ( Amer) (> 60) Est GFR (Non-Af Amer) (> 60) BUN/Creatinine Ratio (6-26) Glucose (70-105) mg/dL Calculated Osmolality (280-300) Lactic Acid 1.4 (0.5-2.2) mmol/L Calcium (8.6-10.3) mg/dL C-Reactive Protein (Less than 10) mg/L - Radiology Data Radiology results reviewed: Yes I reviewed the patient's radiology results. Nora - Nora Situation: Demographics, MOA Background: Presenting Complaint, Relevant PMH, Meds, & Allergies Assessment: Vital Signs, Course and respsone to treatment, Exam Concerns, Patient/Family Expectation, Pertinant Lab Results Recommendation: Barrier(s) to disposition, Recommendation based on pending studies, treatments, or consults SReena Report Given to: Dr. Mariel Melendez Repor Time: 11:30
[2019-03-20] MEDS ORDERED: Piperacillin/Tazobactam 3.375 GM in 0.9 % Sodium Chloride Mini Bag 100 ML IVPB ONE (10:12)
[2019-03-20] MEDS ORDERED: Vancomycin 1,750 MG in 0.9 % Sodium Chloride 250 ML IVPB ONE (10:12)
[2019-03-20] MEDS ORDERED: 0.9 % Sodium Chloride 1,000 ML IVC ONE (10:12)
--- NOTE | 2019-03-20 10:31 | Emergency Department Note ---
Disposition Clinical Impression: Osteomyelitis of toe of left foot Disposition: Admitted As Inpatient Condition: Good Forms: ED Satisfaction Letter General Adult HPI - General Chief complaint: ED Skin/Abscess/Foreign Body Stated complaint: Abscess Time Seen by Provider: 03/20/19 10:01 Source: patient Mode of arrival: ambulatory Limitations: no limitations - History of Present Illness Pain Scale: 0 - Related Data Home Medications Medication Instructions Recorded Confirmed Furosemide [Lasix] 40 mg PO DAILY 09/03/16 09/25/17 Insulin DETEMIR [Levemir Flextouch] 40 unit SQ HS 09/03/16 09/25/17 Previous Rx's Medication Instructions Recorded Aspirin Enteric Coated [Aspirin EC] 325 mg PO DAILY 30 Days tablet. 09/04/16 Clopidogrel [Plavix] 75 mg PO DAILY 30 Days tablet 09/04/16 Metoprolol [Lopressor] 25 mg PO BID 30 Days tablet 09/04/16 Simvastatin [Zocor] 40 mg PO HS 30 Days tablet 09/04/16 Cefdinir [Omnicef] 300 mg PO DAILY #5 capsule 09/20/17 Ferrous Sulfate 325 mg PO DAILY #30 tablet 09/20/17 Sodium Bicarbonate 650 mg PO BID #60 tablet 09/20/17 amLODIPine [Norvasc] 10 mg PO DAILY #0 09/20/17 HYDROcodone/Acet 5/325 mg [[place] 1 tab PO Q6H PRN #42 tab 12/12/17 5-325 mg] Allergies Allergy/AdvReac Type Severity Reaction Status Date / Time No Known Allergies Allergy Verified 12/12/17 09:52 Past Medical History - Past Medical History Medical history: Reports: diabetes, hyperlipidemia, hypertension, renal disease Surgical history: Reports: orthopedic, other Psychiatric history: Reports: anxiety, depression - Social History Smoking Status: Unknown if ever smoked Smokeless Tobacco Status: No Alcohol use: Reports: none Drug use: Reports: none Physical Exam - General Limitations: no limitations General appearance: alert, in no apparent distress Course Vital Signs Temperature 97.7 F 03/20/19 10:04 Pulse Rate 108 03/20/19 10:04 Respiratory Rate 18 03/20/19 10:04 Blood Pressure 193/103 03/20/19 10:04 O2 Sat by Pulse Oximetry 100 03/20/19 10:04 Temperature 97.7 F 03/20/19 10:04 Pulse Rate 108 03/20/19 10:04 Respiratory Rate 18 03/20/19 10:04 Blood Pressure 193/103 03/20/19 10:04 O2 Sat by Pulse Oximetry 100 03/20/19 10:04 Oxygen Delivery Oxygen Delivery Room Air Attestation Statement - Attestation Attestation: I examined this patient and my medical decision-making was reviewed with the Resident Physician. I agree with the documented findings, disposition and treatment plan as described except to the extent set forth below. 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 Is also possible phlegmon information. Patient will need be admitted for IV antibiotics. No need for any imaging today. Patient will be started on Vanco and Zosyn.
[2019-03-20 10:53] LABS: Basophils # 0.1 K/mcL (0.0-0.2); Basophils % 0.7 %; Eosinophils # 0.2 K/mcL (0.0-0.6); Hematocrit 29.3 % (37.5-50.1); Hemoglobin 9.2 g/dL (12.9-16.9); Immature Granulocytes % 0.6 % (0-4); Lymphocytes # 2.2 K/mcL (0.6-4.6); Lymphocytes % 22.8 %; Mean Corpuscular HGB Conc 31.4 g/dL (31.6-35.5); Mean Corpuscular Hemoglobin 27.7 pg (28.0-33.3); Mean Corpuscular Volume 88.3 fL (83.0-100.0); Mean Platelet Volume 9.6 fL (9.4-12.4); Monocytes # 0.5 K/mcL (0.0-1.3); Monocytes % 5.5 %; Neutrophils # 6.7 K/mcL (1.6-8.9); Platelet Count 326 K/mcL (140-400); Red Blood Count 3.32 M/mcL (4.19-5.50); Red Cell Distribution Width 13.7 % (11.5-14.5); Segmented Neutrophils % 68.4 %
[2019-03-20 11:13] LABS: Calcium 8.6 mg/dL (8.6-10.3); Potassium 4.9 mEq/L (3.5-5.1)
[2019-03-20] MEDS ORDERED: Naloxone 0.4 MG/ML INJ IVP PRN (11:29)
[2019-03-20] MEDS ORDERED: D5% in Water 1,000 ML IVC PRN (11:35)
[2019-03-20] MEDS ORDERED: *HR* Dextrose 50 % in Water (Syg) 50 ML SYRINGE IVP PRN (11:35)
[2019-03-20] MEDS ORDERED: Dextrose Gel 15 GM/37.5 ML TUBE PO PRN ×2 (11:35)
--- NOTE | 2019-03-20 12:26 | Internal Med History&Physical ---
Date of Encounter: 03/20/19 Time of Encounter: 12:00 Internal Medicine - H&P: HPI Chief complaint: Osteomyelitis in left foot 4th toe History of present illness: Mr. Kumar is a 48 year old male with pmh of diabetic foot ulcer with toe amputations, hypertension, CKD 3 presenting with complaints of foot ulcer s/p slamming his foot in the door about 3 weeks ago. He denies any pain to the foot but when he went to his podiatry appointment yesterday, a foot MRI was done s howing left foot 4th digit osteomyelitis and that's why he came to the ER today. He denies any fevers, chills or any other acute symptoms In the ER, he was started on vanc and zosyn and podiatry was consulted and he is being admitted for further management Past Med Surg Social Fam HX - Past Medical History Medical history: diabetes, hyperlipidemia, hypertension, renal disease Additional medical history: diabetic foot ulcers Psychiatric history: anxiety, depression - Past Surgical History Surgical History: orthopedic, other Additional surgical history: toe amputation - Social History Smoking Status: Unknown if ever smoked Smokeless Tobacco Status: No Alcohol use: none Drug use: none - Family History Father Hx Family Cardiac Disorders: Yes (CAD) Hx Family Endocrine Disorder: Yes (DM2) Internal Medicine - H&P: Meds Furosemide [Lasix] 40 mg PO DAILY 09/03/16 [History] Insulin DETEMIR [Levemir Flextouch] 40 unit SQ HS 09/03/16 [History] Aspirin Enteric Coated [Aspirin EC] 325 mg PO DAILY 30 Days tablet. 09/04/16 [Rx] Clopidogrel [Plavix] 75 mg PO DAILY 30 Days tablet 09/04/16 [Rx] Metoprolol [Lopressor] 25 mg PO BID 30 Days tablet 09/04/16 [Rx] Simvastatin [Zocor] 40 mg PO HS 30 Days tablet 09/04/16 [Rx] Cefdinir [Omnicef] 300 mg PO DAILY #5 capsule 09/20/17 [Rx] Ferrous Sulfate 325 mg PO DAILY #30 tablet 09/20/17 [Rx] Sodium Bicarbonate 650 mg PO BID #60 tablet 09/20/17 [Rx] amLODIPine [Norvasc] 10 mg PO DAILY #0 09/20/17 [Rx] HYDROcodone/Acet 5/325 mg [[place] 5-325 mg] 1 tab PO Q6H PRN #42 tab 12/12/17 [Rx] Allergy/AdvReac Type Severity Reaction Status Date / Time No Known Allergies Allergy Verified 12/12/17 09:52 All Systems PM: A 10-system review of systems was performed and is negative for pertinent findings except as documented above in the HPI. - Constitutional Constitutional: no chills, no fever(s), no night sweats - EENT Eyes: no change in vision, no discharge, no pain, no photophobia Ears: no ear discharge, no ear pain, no tinnitus Nose, mouth and throat: no dysphagia, no nasal discharge, no neck pain, no sore throat - Cardiovascular Cardiovascular ROS IM: no chest pain, no diaphoresis, no dyspnea, no l ightheadedness, no palpitations, no syncope - Respiratory Respiratory: no cough, no dyspnea, no wheezing, no excessive phlegm production - Gastrointestinal Gastrointestinal: no abdominal pain, no diarrhea, no hematemesis, no hematochezia, no melena, no nausea, no vomiting - Musculoskeletal Musculoskeletal ROS IM: no numbness, no tingling - Integumentary Integumentary IM: no rash, no unusual bruising - Neurological Neurological ROS: no confusion, no convulsions, no focal weakness, no numbness, no tingling, no tremor(s) - Hematologic/Lymphatic Hematologic/Lymphatic: no easy bruising - Constitutional Vitals: Temp Pulse Resp BP Pulse Ox 97.8 F 100 16 176/77 100 03/20/19 12:25 03/20/19 12:25 03/20/19 12:25 03/20/19 12:25 03/20/19 12:25 Exam: NAD. Discoloration noted on left 4th digit Toes missing in bilateral feet - Head Head exam: Present: atraumatic, normocephalic - Eye Eye exam: Present: PERRL, conjuntiva pink, sclera anicteric Pupils: Present: PERRL - Neck Neck exam general surgery: Present: supple, trachea midline. Absent: lymphadenopathy - Respiratory Respiratory exam: Present: CTAB. Absent: accessory muscle use, rales, rhonchi, wheezes - Cardiovascular Cardiovascular exam: Present: RRR, +S1, +S2. Absent: diastolic murmur, gallop, rubs, systolic murmur - GI/Abdominal GI/Abdominal exam: Present: normal bowel sounds, soft, no peritoneal signs. Absent: distended, tenderness - Extremities Exam Extremities exam: Present: warm, radial pulses palpable and symmetrical. Absent: calf tenderness, cyanotic, pedal edema - Neurological Exam Neurological exam: Present: CN II-XII intact, oriented X3, no focal deficits. Absent: pronater drift, facial droop, speech deficit - Skin Skin exam: Present: dry, intact Internal Med - H&P Results - Labs CBC & Chem 7: 03/20/19 10:11 03/20/19 10:35 Labs: Short CBC 03/20/19 Range/Units 10:11 WBC 9.7 (4.3-11.1) K/mcL Hgb 9.2 L (12.9-16.9) g/dL Hct 29.3 L (37.5-50.1) % Plt Count 326 (140-400) K/mcL Neutrophils # 6.7 (1.6-8.9) K/mcL BMP 03/20/19 10:35 Sodium 135 L Potassium 4.9 Chloride 111 H Carbon Dioxide 18 L BUN 45 H Creatinine 3.43 H Glucose 221 H Calcium 8.6 - Assessment and Plan (1) Osteomyelitis of toe of left foot Current Visit: Yes Status: Acute Assessment and plan: s/p toe injury by slamming door on foot. MRI showed underlying osteomyelitis and pathologic fracture of the 4th toe. Obtain cultures, start on vanc and zosyn. Podiatry consulted (2) Acute kidney injury Current Visit: Yes Status: Acute Assessment and plan: ERWIN on CKD 3. On IV fluids. Monitor creatinine (3) CKD (chronic kidney disease) stage 3, GFR 30-59 ml/min Current Visit: No Status: Chronic Assessment and plan: See #2 (4) Diabetes Current Visit: Yes Status: Chronic Assessment and plan: Continue insulin and monitor fingersticks Qualifiers: Diabetes mellitus type: type 2 Diabetes mellitus longterm insulin use: unspecified longterm insulin use status Diabetes mellitus complication sta tus: with skin complications Diabetes mellitus complication detail: with foot ulcer Qualified Code(s): E11.621 - Type 2 diabetes mellitus with foot ulcer; L97.509 - Non-pressure chronic ulcer of other part of unspecified foot with uns pecified severity (5) Hypertension Current Visit: Yes Status: Chronic Assessment and plan: Resume home meds. IV hydralazine PRN Qualifiers: Hypertension type: essential hypertension Qualified Code(s): I10 - Essential (primary) hypertension (6) DVT prophylaxis Current Visit: Yes Status: Acute Assessment and plan: Heparin sc - Time Spent With Patient Total time spent is greater than 50% in coordination of care (as documented) at patient's floor/unit and/or counseling patient:
[2019-03-20 13:01] LABS: Estimated Average Glucose 258 mg/dl; Hemoglobin A1C 10.6 %
[2019-03-20] MEDS: amLODIPine 5 MG TABLET PO SCH (13:10)
--- NOTE | 2019-03-20 13:43 | Podiatry Consult Note ---
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 Cleansed wound with saline, applied adaptic, 4x4 and kerlix. There is also a stable chronic diabetic ulceration to toe #2 left, no appearance of infection. Stable in appearance and size. no drainage noted. 1. Soft tissue swelling and complex heterogeneous T2 collection of the 4th digit compatible with abscess versus phlegmon. There is underlying osteomyelitis and pathologic fracture of the 4th toe. 2. Ulceration of the medial soft tissues of the foot with no underlying fluid collection identified. Qualifiers: Diabetes mellitus type: type 2 Laterality: left Non-pressure ulcer stage: limited to breakdown of skin Qualified Code(s): E11.621 - Type 2 diabetes mellitus with foot ulcer; L97.521 - Non-pressure chronic ulcer of other part of left foot limited to breakdown of skin (3) Foot ulcer, limited to breakdown of skin Status: Acute Becerra stage II skin ulceration lateral mt head #5 right foot-- was once into the sub Q but now showing signs of healing toe #2 left is also limited to breakdown of skin PLAN: Stable at this time, this was debrided and treated in podiatry clinic. Healing at this time Cleansed with saline , pat dry Adaptic, 4x4 kerlix and GEE applied. Change daily Will place order Qualifiers: Laterality: left Qualified Code(s): L97.521 - Non-pressure chronic ulcer of other part of left foot limited to breakdown of skin (4) Osteomyelitis of toe of left foot Status: Acute History of Present Illness HPI: Patient is a 48-year-old male with past medical history of diabetes, hypertension, hyperlipidemia, renal disease. He presents today after evaluation in podiatry office by [facility] May related to fracture and osteomyelitis of the fourth digit of the left foot. Patient states that around a week ago, he fell and broke his fourth digit on the left foot. He does note that there was an open lesion at that time. He said that he was given a course of 7 days of antibiotics, which was augmentin, patient confirms he took all of medication. He had a MRI yesterday ordered by podiatry which is documented below. Patient sta luciano that he was sent here by podiatry office for admission for IV antibiotics and possible surgery on Saturday. Patient denies any current pain. He has noted redness, drainage to the right 4th digit. Patient also has a healing ulceration of the lateral aspect of the right foot. Denies any nausea, vomiting, fevers, diarrhea, abdominal pain, dysuria, hematuria. Denies any allergies to any antibiotics. 1. Soft tissue swelling and complex heterogeneous T2 collection of the 4th digit compatible with abscess versus phlegmon. There is underlying osteomyelitis and pathologic fracture of the 4th toe. 2. Ulceration of the medial soft tissues of the foot with no underlying fluid collection identified. Past Med Surg Social Fam HX - Past Medical History Medical history: diabetes, hyperlipidemia, hypertension, renal disease Additional medical history: diabetic foot ulcers Psychiatric history: anxiety, depression - Past Surgical History Surgical History: orthopedic, other Additional surgical history: right great toe amputation, left 5th toe amputation - Social History Smoking Status: Unknown if ever smoked Smokeless Tobacco Status: No Alcohol use: none Drug use: none - Family History Father Hx Family Cardiac Disorders: Yes (CAD) Hx Family Endocrine Disorder: Yes (DM2) Medications and Allergies Dorzolamide HCl 1 drop LEFT EYE 1-2XD 03/20/19 [History] Carvedilol [Coreg] 12.5 mg PO BIDWM #120 tablet 03/24/19 [Rx] Doxycycline 100 mg PO BID 7 Days #14 capsule 03/24/19 [Rx] Insulin NPH/REG 70/30 (HUMAN) [Humulin 70/30 Vial] 25 unit SQ BID #30 vial 0 03/24/19 [Rx] Allergy/AdvReac Type Severity Reaction Status Date / Time No Known Allergies Allergy Verified 03/20/19 16:45 All Systems Reviewed: as per hpi Physical Exam - Constitutional Vitals: Temp Pulse Resp BP Pulse Ox 97.8 F 100 16 176/77 100 03/20/19 12:25 03/20/19 12:25 03/20/19 12:25 03/20/19 12:25 03/20/19 12:25 Exam: Podiatry General Exam: General appearance: Alert, awake, oriented X 3, well-nourished, no acute distress noted.. Vascular: Pedal pulses + 2/4 DP/PT. Skin temperature warm from toes to tibia. Capillary refill time is immediate to digits.. Neurologic: Diminished protective sensation, proprioception intact.. Musculoskeletal: ROM of ankle subtalar and forefoot joints are free and unrestricted without pain or crepitious. Muscle strength 4/5 and normal tone of leg and foot.. Integument: The full thickness ulcer with fat layer exposed right lateral forefoot that is believed to be from the blister previously in this area- lesion is healing with hyperkeratotic tissue noted to site. No erythema. No lymphangitis. No tunneling or undermining noted. No drainage noted. No odor noted. Left foot with chronic ulcer noted to distal aspect of #2 that is healing. Left #2 toe ulcer with callused tissue. No tunneling, undermining, or drainage noted. No lymphangitis and no odor.benign in appearance , no signs of active infection Left #4 toe edematous with minimal erythema. The toe is painful with palpation. Toe is flaccid with movement. No tone to toe. There is fluctuance to the toe and an ulcer concerning for abscess versus phlegmon.. No lymphangitis. Odor noted. Purulent drainage noted on dressing. There is no noted probe to bone on exam at this time. Amputation of toe #5 left and hallux of right Results - Labs Result Diagrams: 03/24/19 03:34 03/24/19 03:34 Labs: Abnormal lab results RBC 3.32 M/mcL (4.19-5.50) L 03/20/19 10:11 Hgb 9.2 g/dL (12.9-16.9) L 03/20/19 10:11 Hct 29.3 % (37.5-50.1) L 03/20/19 10:11 MCH 27.7 pg (28.0-33.3) L 03/20/19 10:11 MCHC 31.4 g/dL (31.6-35.5) L 03/20/19 10:11 ESR 92 mm/hr (0-10) H 03/20/19 10:35 Sodium 135 mEq/L (136-145) L 03/20/19 10:35 Chloride 111 mEq/L (98-107) H 03/20/19 10:35 Carbon Dioxide 18 mEq/L (23-29) L 03/20/19 10:35 BUN 45 mg/dL (6-20) H 03/20/19 10:35 Creatinine 3.43 mg/dL (0.70-1.30) H 03/20/19 10:35 Est GFR ( Amer) 23 (> 60) L 03/20/19 10:35 Est GFR (Non-Af Amer) 19 (> 60) L 03/20/19 10:35 Glucose 221 mg/dL (70-105) H 03/20/19 10:35 Hemoglobin A1c 10.6 % (-5.6) H 03/20/19 10:35 C-Reactive Protein 10 mg/L (Less than 10) H 03/20/19 10:35 H & H 03/20/19 Range/Units 10:11 Hgb 9.2 L (12.9-16.9) g/dL Hct 29.3 L (37.5-50.1) % All other labs normal. Consult Discharge Plan - Plan Instructions: Diabetes Mellitus Type 2 in Adults (DC), Chronic Hypertension (DC) Referrals: Chencho Murillo MD [Primary Care Provider] - 04/06/19 9:00 am (Please follow up as schedule...) Thomas Fragoso DPM [Partnered Physician] - 04/01/19 9:00 am (Follow up with Yadira) Tenzin Whitaker DO [Partnered Physician] - 03/27/19 2:15 pm (Please follow up as schedule...) Prescriptions: Carvedilol [Coreg] 12.5 mg PO BIDWM #120 tablet Doxycycline 100 mg PO BID 7 Days #14 capsule Insulin NPH/REG 70/30 (HUMAN) [Humulin 70/30 Vial] 25 unit SQ BID #30 vial
[2019-03-20] MEDS: Piperacillin/Tazobactam 3.375 GM in 0.9 % Sodium Chloride Mini Bag 100 ML IVPB SCH (17:36)
[2019-03-20] MEDS: Insulin LISPRO 300 UNITS/3 ML VIAL SQ SCH (17:37)
[2019-03-20] MEDS: *HR* Heparin 5,000 UNIT/ML VIAL SQ SCH (17:40)
[2019-03-20] MEDS: Insulin DETEMIR 100 UNIT/ML X5UNITS SQ SCH (20:50)
[2019-03-20] MEDS: 0.9 % Sodium Chloride 1,000 ML IVC SCH (20:54)
[2019-03-21] MEDS: Piperacillin/Tazobactam 3.375 GM in 0.9 % Sodium Chloride Mini Bag 100 ML IVPB SCH ×4 (00:25→23:50)
[2019-03-21 01:47] LABS: Basophils # 0.1 K/mcL (0.0-0.2); Basophils % 0.7 %; Eosinophils # 0.3 K/mcL (0.0-0.6); Eosinophils % 2.5 %; Hematocrit 27.1 % (37.5-50.1); Hemoglobin 8.4 g/dL (12.9-16.9); Immature Granulocytes % 0.4 % (0-4); Lymphocytes # 2.6 K/mcL (0.6-4.6); Lymphocytes % 22.5 %; Mean Corpuscular Hemoglobin 27.5 pg (28.0-33.3); Mean Corpuscular Volume 88.9 fL (83.0-100.0); Mean Platelet Volume 9.6 fL (9.4-12.4); Monocytes # 0.7 K/mcL (0.0-1.3); Neutrophils # 7.8 K/mcL (1.6-8.9); Platelet Count 299 K/mcL (140-400); Red Blood Count 3.05 M/mcL (4.19-5.50); Segmented Neutrophils % 67.9 %
[2019-03-21] MEDS: 0.9 % Sodium Chloride 1,000 ML IVC SCH ×4 (07:09→21:50)
[2019-03-21] MEDS: *HR* Heparin 5,000 UNIT/ML VIAL SQ SCH ×2 (07:09→16:36)
[2019-03-21] MEDS: Insulin LISPRO 300 UNITS/3 ML VIAL SQ SCH ×3 (07:15→16:37)
[2019-03-21] MEDS: amLODIPine 5 MG TABLET PO SCH (07:16)
[2019-03-21 07:23] LABS: Magnesium 1.9 mg/dL (1.6-2.6); Phosphorous 3.2 mg/dL (2.7-4.5); Potassium 4.7 mEq/L (3.5-5.1)
[2019-03-21] MEDS ORDERED: Aspirin Enteric Coated 325 MG Tablet PO SCH (09:00)
--- NOTE | 2019-03-21 10:37 | Internal Med Progress Note ---
Hospitalist Progress Note - Encounter Date of Encounter: 03/21/19 Time of Encounter: 08:45 - Subjective Interval History: H&P reviewed. Patient with history of diabetes complicated by CKD, DM foot ulcers, and medication noncompliance, HTN, was admitted due to L 4th toe OM. States that he had ran out of his diabetic medications > 1 year. Denies any marcus na, hematochezia, BRBPR, or hematemesis. No fever overnight. - Exam Vitals: Temp Pulse Resp BP Pulse Ox 98.2 F 79 18 145/84 98 03/21/19 07:05 03/21/19 07:05 03/21/19 07:05 03/21/19 07:05 03/21/19 07:25 Exam: General: Alert and oriented, not in acute distress. Cardiovascular:Normal S1 & S2, No JVD. Pulse regular. Lungs: clear to auscultation, no wheezes/rales Abdomen:Soft, non-tender, no rigidity. Extremities: L foot dressing c/d/i Neurological:Normal cognition and motor skills. Non-focal - Assessment and Plan (1) Osteomyelitis of toe of left foot Current Visit: Yes Status: Acute Assessment and Plan: L foot MRI 03/19 showed soft tissue swelling abscess vs phlegmon of the 4th digit as well as OM and pathologic fracture of the 4th toe ESR/CRP 92/10 respectively started on IV Vanc/zosyn, continue podiatry input appreciated, for OR on Saturday (2) Acute renal failure superimposed on stage 3 chronic kidney disease Current Visit: Yes Status: Acute Assessment and Plan: AoCKD vs. progression of CKD widely fluctuating Cr but it was as low as 2.2 in 08/2017 monitor on IVF for today, if Cr unchanged, would d/c US retroperitoneum renally dosed abx avoid nephrotoxins (3) Diabetes Current Visit: Yes Status: Chronic Assessment and Plan: poorly controlled, A1c 10.6 Pt had not used any diabetic meds for the last year or so started on basal-bolus insulin, continue (4) Hypertension Current Visit: Yes Status: Chronic Assessment and Plan: Continue home meds (5) DVT prophylaxis Current Visit: Yes Status: Acute Assessment and Plan: Subcutaneous heparin - Time Spent with Patient Total time spent is greater than 50% in coordination of care (as documented) at patient's floor/unit and/or counseling patient: 25 - 35 minutes Plan of Care Discussed with: patient Internal Medicine: Result - Labs CBC & Chem 7: 03/21/19 01:17 03/21/19 01:17 Labs: Short CBC 03/20/19 03/21/19 Range/Units 10:11 01:17 WBC 9.7 11.4 H (4.3-11.1) K/mcL Hgb 9.2 L 8.4 L (12.9-16.9) g/dL Hct 29.3 L 27.1 L (37.5-50.1) % Plt Count 326 299 (140-400) K/mcL Neutrophils # 6.7 7.8 (1.6-8.9) K/mcL BMP 03/20/19 03/21/19 10:35 01:17 Sodium 135 L 138 Potassium 4.9 4.7 Chloride 111 H 112 H Carbon Dioxide 18 L 17 L BUN 45 H 41 H Creatinine 3.43 H 3.22 H Glucose 221 H 222 H Calcium 8.6 8.0 L Consult Discharge Plan - Plan Referrals: Chencho Murillo MD [Primary Care Provider] - (2) Acute renal failure superimposed on stage 3 chronic kidney disease Qualifiers: Acute renal failure type: unspecified Qualified Code(s): N17.9 - Acute kidney failure, unspecified; N18.3 - Chronic kidney disease, stage 3 (moderate) (3) Diabetes Qualifiers: Diabetes mellitus type: type 2 Diabetes mellitus 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
[2019-03-21] MEDS: Dorzolamide OPTH 10 ML BOTTLE LEFT EYE SCH ×2 (12:35→20:43)
[2019-03-21] MEDS: Insulin DETEMIR 100 UNIT/ML X5UNITS SQ SCH (20:43)
[2019-03-22 00:57] LABS: Basophils # 0.1 K/mcL (0.0-0.2); Basophils % 0.7 %; Eosinophils # 0.1 K/mcL (0.0-0.6); Eosinophils % 1.7 %; Hematocrit 26.7 % (37.5-50.1); Hemoglobin 8.3 g/dL (12.9-16.9); Immature Granulocytes % 0.5 % (0-4); Lymphocytes # 1.4 K/mcL (0.6-4.6); Lymphocytes % 18.4 %; Mean Corpuscular HGB Conc 31.1 g/dL (31.6-35.5); Mean Corpuscular Hemoglobin 27.6 pg (28.0-33.3); Mean Corpuscular Volume 88.7 fL (83.0-100.0); Mean Platelet Volume 9.7 fL (9.4-12.4); Monocytes # 0.7 K/mcL (0.0-1.3); Monocytes % 8.7 %; Neutrophils # 5.3 K/mcL (1.6-8.9); Platelet Count 263 K/mcL (140-400); Red Blood Count 3.01 M/mcL (4.19-5.50)
[2019-03-22 01:12] LABS: Potassium 4.7 mEq/L (3.5-5.1)
[2019-03-22] MEDS: *HR* Heparin 5,000 UNIT/ML VIAL SQ SCH ×2 (06:05→16:54)
[2019-03-22] MEDS ORDERED: *HR* Metoprolol 5 MG/5 ML VIAL IVP ONE ×2 (06:53→07:04)
[2019-03-22] MEDS: amLODIPine 5 MG TABLET PO SCH (07:22)
[2019-03-22] MEDS: Piperacillin/Tazobactam 3.375 GM in 0.9 % Sodium Chloride Mini Bag 100 ML IVPB SCH ×2 (07:23→16:55)
--- NOTE | 2019-03-22 07:28 | Anesthesia Evaluation PreOp ---
Date of Encounter: 03/22/19 Time of Encounter: 07:26 - Past History Planned Operation: L-4th toe amp & 1st toe screw removal Cardiac History: HTN, Hyperlipidemia, Other (Non-obstructive CAD per [facility] 2016 - Pt denies Stent placement. Last Plavix 03/21/2019 @ 0728. Anemia of chronic Dz.) Pulmonary History: Denies Any Significant HX, Snore (denies), RICCO Dx (denies) QUALITY TECH History: Other (Diabetic neuropathy) Other Medical History: Renal (Stage 3-4 CKDz/GFR = 21), Diabetes Type II, Other (MO/BMI = 41) Anesthesia History: No Prior Anesthetic Complications, Past Anesthesia (Toe amputations/Diabetic foot ulcers) Alcohol Use: none Drug use: none Medications and Allergies Dorzolamide HCl 1 drop LEFT EYE 1-2XD 03/20/19 [History] Allergy/AdvReac Type Severity Reaction Status Date / Time No Known Allergies Allergy Verified 03/20/19 16:45 - Meds/Allergy Pre-op Review Medications Reviewed: Yes Allergies Reviewed: Yes Beta Blockers on Current Med List: Yes (Carvedilol [listed on Jan]) If Beta Blockers taken, Date/Time (Last Dose taken): Last dose unknown Anesthesia Results - Labs 03/22/19 00:30 03/22/19 00:30 Impressions Retroperitoneum Ultrasound 03/21/19 10:41 IMPRESSION: 1. No hydronephrosis. 2. Postvoid residual as above. D/ / Andressa Monterroso MD / Andressa Monterroso MD Interpreting Provider: Andressa Monterroso MD Laboratory Results Laboratory Tests 03/20/19 03/21/19 03/22/19 10:35 01:17 00:30 Est GFR (Non-Af Amer) 21 L Est Mean Plasma Glucose 258 Hemoglobin A1c 10.6 H Calcium 8.0 L Phosphorus 3.2 Magnesium 1.9 - Imaging EKG: image reviewed (EKG dated 09/17/2017 - 124bpm SINUS TACHYCARDIA NONSPECIFIC ST & T-WAVE ABNORMALITY ABNORMAL RHYTHM ECG Electronically Signed On 09-17-2017 15:59:47 EDT by Gabriel Evans) Additional studies: ECHO 09/17/2017 EV/EV echocardiogram Impressions: LVEF 60%. Mild left ventricular diastolic dysfunction. Normal right ventricular structure and function. No significant valvular dysfunction. No pulmonary hypertension by TR gradient. Left Ventricular Wall Motion: Rest Echo Findings All wall segments showed normal motion. Anesthesia Exam Vital Signs Temp Pulse Resp BP Pulse Ox 03/22/19 06:37 97.9 F 88 20 180/94 98 03/22/19 04:25 160/88 03/22/19 03:21 98.1 F 78 18 168/90 97 03/21/19 23:08 98.1 F 84 17 162/81 94 03/21/19 20:50 98 03/21/19 19:02 97.8 F 86 18 166/89 98 03/21/19 14:58 97.6 F 85 18 155/82 100 03/21/19 11:03 97.9 F 73 18 133/80 100 Intake and Output 03/21/19 03/21/19 03/22/19 15:59 23:59 07:59 Intake Total 340 / 3710 1540 / 3710 100 / 100 Output Total 500 / 500 500 / 500 Balance 340 / 3210 1040 / 3210 -400 / -400 Intake: IV Fluids 100 / 2550 1100 / 2550 100 / 100 0.9 % Sodium Chloride 1,000 ML 100 / 2100 1000 / 2100 @ 75 mls/hr IVC .[id number] ANANTH Rx #:[id number] Zosyn 3.375 GM In 0.9 % Sodium 100 / 100 100 / 100 Chloride (Mini-Bag +) 100 ML @ 25 mls/hr IVPB Q8H ANANTH Rx#: [id number] Oral 240 / 1160 440 / 1160 Output: Urine 500 / 500 500 / 500 Other: Meal Breakfast Dinner Percent of Meal Consumed 80% 100% Stool Size Moderate # Voids 1 # Bowel Movements 1 Weight 122.8 kg Blood Glucose* 264 255 Height: 5'8" Weight: 270# BMI = 41 NPO (# of Hours): MNoc - HEENT Pupil (Motor): Pupils equal, EOMI Mallampati: IV Teeth: Edentulous Oral Opening: Greater than 3 - QUALITY TECH LOC: Oriented QUALITY TECH Motor: Normal RUE, Normal LUE, Normal RLE, Normal LLE, Normal Face QUALITY TECH Sensory: Normal: RUE, LUE, RLE, LLE, Face - Cardiac Rhythm: Regular Murmur: None - Pulmonary Breath Sounds: bilateral Clear Respiratory Effort: Symmetrical Anesthesia Assess/Plan ASA Score: 4 (HTN, Chol, DM, MO/BMI = 41) Level of consciousness: Cooperative, Oriented, Tranquil Anesthetic Plan: General (as back up plan), MAC Monitoring Plan: Standard Monitors Recovery Plan: Other Anes Supervising Prov Stmt: PT seen/evaluated, R&B Discussed,questions answered and consent obtained. Abdullahi Rodgers MD
[2019-03-22] MEDS ORDERED: Insulin LISPRO 300 UNITS/3 ML VIAL SQ SCH ×2 (07:30→21:00)
--- NOTE | 2019-03-22 07:33 | Podiatry Progress Note ---
Date of Encounter: 03/22/19 Time of Encounter: 07:30 - Assessment and Plan (1) Abscess of toe of left foot Current Visit: Yes Status: Acute 1. Plan for I&D left 4th toe with possible amputation of the digit to be determined after visualizing the tissue viability. Continue IV antibiotics. Will consult ID as needed based on soft tissue cultures. Patient is NPO. Surgical consent signed after risks, benefits, and expected post operative course reviewed. Risks include but are not limited to: worsening infection, non healing wound, need for further surgery, nerve/tendon/vascular injury, chronic pain, loss of limb, loss of life. No guarantees were made as to the outcome of the procedure. SNOMED Code(s): 396431319 (2) Osteomyelitis of toe of left foot Current Visit: Yes Status: Acute 1. There is concern for possible osteomyelitis of the left 4th digit given the history of ulceration, MRI findings, and elevated ESR/CRP. Will obtain bone cultures intraoperatively, but toe amputation is possible if soft tissue and bone quality are poor. Code(s): M86.9 - Osteomyelitis, unspecified SNOMED Code(s): 2774044836576963, 185832770, 1192300919148259 (3) Hardware failure Current Visit: Yes Status: Acute 1. There is exposed hardware through an ulcer at the left 1st toe. Will plan for hardware removal as this could eventually become a nidus for infection. This procedure has been added to the surgical consent. SNOMED Code(s): 098299432 Subjective Principal diagnosis: left 4th toe abscess, exposed hardware 1st toe Interval history: Patient feeling well today. He has no questions about his planned surgery today. He denies n/v/f/c. Surgical consent is signed by the patient. Objective - Vital Signs Vital Signs: Vital Signs Temp Pulse Resp BP Pulse Ox 03/22/19 06:37 97.9 F 88 20 180/94 98 03/22/19 04:25 160/88 03/22/19 03:21 98.1 F 78 18 168/90 97 03/21/19 23:08 98.1 F 84 17 162/81 94 03/21/19 20:50 98 03/21/19 19:02 97.8 F 86 18 166/89 98 03/21/19 14:58 97.6 F 85 18 155/82 100 03/21/19 11:03 97.9 F 73 18 133/80 100 Intake and Output 03/21/19 03/21/19 03/22/19 15:59 23:59 07:59 Intake Total 340 / 3710 1540 / 3710 100 / 100 Output Total 500 / 500 500 / 500 Balance 340 / 3210 1040 / 3210 -400 / -400 Intake: IV Fluids 100 / 2550 1100 / 2550 100 / 100 0.9 % Sodium Chloride 1,000 ML 100 / 2100 1000 / 2100 @ 75 mls/hr IVC .[id number] ANANTH Rx #:[id number] Zosyn 3.375 GM In 0.9 % Sodium 100 / 100 100 / 100 Chloride (Mini-Bag +) 100 ML @ 25 mls/hr IVPB Q8H ANANTH Rx#: [id number] Oral 240 / 1160 440 / 1160 Output: Urine 500 / 500 500 / 500 Other: Meal Breakfast Dinner Percent of Meal Consumed 80% 100% Stool Size Moderate # Voids 1 # Bowel Movements 1 Weight 122.8 kg Blood Glucose* 264 255 - Exam Exam: Alert, oriented x3, no acute distress. Vascular: DP and PT weakly palpable on left. Capillary refill brisk to remaining digits. Skin temperature warm to touch left 4th toe. Dermatology: Left 1st toe with ulcer 0.5cm diameter with exposed screw head through wound. No erythema or drainage to the 1st toe. Left 4th toe with unstageable ulcer lateral aspect with palpable fluctuance. Erythema improved. No active drainage. Musculoskeletal: No pain with compression of calf. Left partial 5th ray amputation. Neuro: Sensations diminished to light touch to lower extremity. - Lab Result Diagrams: 03/22/19 00:30 03/22/19 00:30 Labs: Abnormal lab results WBC 11.4 K/mcL (4.3-11.1) H 03/21/19 01:17 RBC 3.01 M/mcL (4.19-5.50) L 03/22/19 00:30 Hgb 8.3 g/dL (12.9-16.9) L 03/22/19 00:30 Hct 26.7 % (37.5-50.1) L 03/22/19 00:30 MCH 27.6 pg (28.0-33.3) L 03/22/19 00:30 MCHC 31.1 g/dL (31.6-35.5) L 03/22/19 00:30 ESR 92 mm/hr (0-10) H 03/20/19 10:35 Sodium 135 mEq/L (136-145) L 03/20/19 10:35 Chloride 117 mEq/L (98-107) H 03/22/19 00:30 Carbon Dioxide 16 mEq/L (23-29) L 03/22/19 00:30 BUN 38 mg/dL (6-20) H 03/22/19 00:30 3.17 mg/dL (0.70-1.30) H 03/22/19 00:30 Est GFR ( Amer) 25 (> 60) L 03/22/19 00:30 Est GFR (Non-Af Amer) 21 (> 60) L 03/22/19 00:30 Glucose 193 mg/dL (70-105) H 03/22/19 00:30 POC Glucose 193 mg/dL (70-99) H 03/21/19 16:12 10.6 % (-5.6) H 03/20/19 10:35 302 (280-300) H 03/22/19 00:30 Calcium 8.0 mg/dL (8.6-10.3) L 03/22/19 00:30 10 mg/L (Less than 10) H 03/20/19 10:35 Vancomycin Trough 24 mcg/mL (5-10) H 03/22/19 00:30 Microbiology, Last 48 Hours 03/20/19 14:13 Gram Stain - Final Left Fourth Toe 03/20/19 14:13 Wound Culture - Preliminary Left Fourth Toe No growth. 03/20/19 14:13 Anaerobic Culture - Preliminary Left Fourth Toe Culture is incubating. 03/20/19 10:40 Blood Culture - Preliminary Peripheral Venipuncture Culture is incubating and being continuously monitored for growth. Final report to follow. 03/20/19 10:35 Blood Culture - Preliminary Peripheral Venipuncture Culture is incubating and being continuously monitored for growth. Final report to follow. Consult Discharge Plan - Plan Referrals: Chencho Murillo MD [Primary Care Provider] -
[2019-03-22] MEDS ORDERED: Lidocaine -MPF 2% 2 ML VIAL ONE (07:35)
[2019-03-22] MEDS ORDERED: Ondansetron 4 MG/2 ML VIAL ONE (07:35)
[2019-03-22] MEDS ORDERED: Propofol 500 MG/50 ML INFUS..BTL ONE (07:35)
[2019-03-22] MEDS ORDERED: *HR* Midazolam HCl 2 MG/2 ML VIAL ONE (07:36)
[2019-03-22] MEDS ORDERED: *HR* FentaNYL (PF) 100 MCG/2 ML VIAL ONE (07:36)
--- NOTE | 2019-03-22 08:54 | Orthopedic Operative Note ---
Date of procedure: 03/22/19 Pre-op diagnosis: left 4th toe infection, abscess, hardware failure left hallux Post-op diagnosis: same Procedure: 03/22/19 08:51 1. Left 4th toe incision and drainage below fascia 2. Left 4th toe amputation 3. Left 1st toe removal of hardware 4. Left 1st toe wide excision ulcer with closure Implants: None Complications: None Anesthesia: MAC, local Local Anesthetics: 1% Lidocaine HCL SubQ (cc) Surgeon: Thomas Fragoso Was there an foundation assistant present: No Estimated blood loss (cc): 1 Tourniquet Time (Minutes): 13 Specimen: Bone left 4th proximal phalanx to micro, left 4th toe to pathology Condition: stable Disposition: floor Procedure in Detail: 03/22/19 10:05 INDICATIONS AND CONSENT Juni Kumar is a 48 year old male with a history of uncontrolled type II diabetes, chronic wounds and history digital amputations that presented with a wound to the left 4th toe and concern for infection. He reported having an acute trauma to the toe. Xrays showed evidence of cortical lysis at the left 5th toe proximal and middle phalanx vs possible fracture. MRI showed evidence of abscess of the 4th digit extending from the ulceration to the level of bone. There was also inflammation and edema at the proximal phalanx of the digit. WBC, ESR, and CRP were elevated. Given these lab values and both the radiographic and MRI findings, there was concern for soft tissue infection and possible pathologic fracture of the proximal and middle phalanx of the digit due to possible underlying osteomyelitis. Surgical intervention was warranted, including incision and drainage with debridement of all non-viable soft tissue and bone with possible left 4th toe amputation. He also had an ulcer to the left 1st toe with exposed screw from the wound that was previously placed for interphalangeal joint arthrodesis. There were no signs of infection at the 1st toe, however given his uncontrolled diabetes and history of lower extremity infection, it was decided to excise the ulcer and remove the hardware to prevent further wound complication or infection. We discussed the above procedures in detail. This included a discussion on the indications, contraindications, and possible complications including but not limited to: worsening infection, non-healing wound, pain, swelling, bleeding, blood clots, heart complications, nerve injury, tendon injury, vascular injury, loss of limb, loss of life, failure to remove hardware, and need for further surgery. We also reviewed the expected post operative course, including a discussion on the non-weightbearing status after this procedure. He related understanding of our discussion regarding this surgery. All questions were answered to his satisfaction, and a proper written informed consent was obtained, signed, and placed in the chart. No guarantees were given, stated or implied, as to the outcome of this procedure. PROCEDURE IN DETAIL The patient was seen in the pre-operative holding area by Anesthesia, where he was consented for MAC with local block. The patient was then brought back to the operative suite and placed on the operating room table in the supine position. A sign-in was performed. MAC was then initiated per Anesthesia protocol. No pneumatic tourniquet was placed. Next, the left lower leg was scrubbed, prepped, and draped in the usual aseptic manner. A [place] Time-Out was performed, and all parties in the room agreed. A total of 3 mL of 1% lidocaine plain was injected to the left first toe in a digital block distribution. A 15 blade was used to perform a 3-1 excision of the ulcer at the level of the exposed screw head medial to the digit. The screw was then removed without complication and was noted to be intact. The wound was then irrigated with normal saline. The wound was then reapproximated using 3-0 Prolene. Attention was then directed to the left fourth digit where a 3 mL of 1% lidocaine plain was injected in a digital block distribution to the toe. A 15 blade was used to perform an incision over the palpable abscess and wound at the lateral aspect of the digit. Incision was carried deep to the level of bone. Next, an Esmarch was used to exsanguinate the left foot due to bleeding in the surgical wound blocking the visual field. There is a small amount of purulent drainage at the level of the proximal phalanx. All nonviable soft tissue was excised using a 15 blade and [place]. The remaining proximal phalanx appeared nonviable and necrotic. A sample of the bone was sent to micro. Given the amount of soft tissue and bone the was debrided, it was determined that the digit was not salvageable and we proceeding with amputation. A fishmouth incision was then made at the base of the left fourth toe. The incision was carried deep to the level of the first metatarsophalangeal joint where the toe was disarticulated using a 15 blade. The toe was then sent to pathology. The left fourth metatarsal head appeared viable and healthy and soft tissue surrounding the bone showed no evidence of infection after an rotation of the digit. The wound was then irrigated with 3 L of normal saline using cystoscopy tubing. The deep and subcutaneous tissue was reapproximated using 3-0 Vicryl. The skin was reapproximated under minimal tension using 3-0 Prolene. The Esmarch tourniquet was then released. Capillary refill time of the remaining toes on the left foot was also noted to be brisk at this time. A sign-out was performed. The patient tolerated anesthesia and the procedure well, and was transferred to PAC-U with vital signs stable and vascular status intact to the left lower extremity. Needle and sponge counts were correct X 2 at the end of the case. Dr. Thomas Fragoso was present, scrubbed, and participated in all vital aspects of the procedure. After a brief stay in PAC-U, the patient will be admitted back to the floor for continued monitoring and IV antibiotics. We will follow up on operative cultures and patient will likely discharge on PO antibiotics. Patient will be non weightbearing until an orthowedge offloading shoe is applied. Dressing will remain clean, dry, and intact until changed by the Podiatry team on post op day 3. 03/22/19 10:11
[2019-03-22] MEDS ORDERED: Dextrose Gel 15 GM/37.5 ML TUBE PO PRN ×2 (09:08)
[2019-03-22] MEDS ORDERED: 0.9 % Sodium Chloride 1,000 ML IVC SCH (09:08)
[2019-03-22] MEDS ORDERED: Naloxone 0.4 MG/ML INJ IVP PRN (09:08)
[2019-03-22] MEDS ORDERED: *HR* Dextrose 50 % in Water (Syg) 50 ML SYRINGE IVP PRN (09:08)
[2019-03-22] MEDS ORDERED: D5% in Water 1,000 ML IVC PRN (09:08)
--- NOTE | 2019-03-22 10:01 | Internal Med Progress Note ---
Hospitalist Progress Note - Encounter Date of Encounter: 03/22/19 Time of Encounter: 08:15 - Subjective Interval History: No acute events overnight. Planning for OR today and has been kept NPO this morning - Exam Vitals: Temp Pulse Resp BP Pulse Ox 97.9 F 88 20 180/94 98 03/22/19 06:37 03/22/19 06:37 03/22/19 06:37 03/22/19 06:37 03/22/19 06:37 Exam: General: Alert and oriented, not in acute distress. Cardiovascular:Normal S1 & S2, No JVD. Pulse regular. Lungs: clear to auscultation, no wheezes/rales Abdomen:Soft, non-tender, no rigidity. Extremities: L foot dressing c/d/i Neurological:Normal cognition and motor skills. Non-focal - Assessment and Plan (1) Osteomyelitis of toe of left foot Current Visit: Yes Status: Acute Assessment and Plan: L foot MRI 03/19 showed soft tissue swelling abscess vs phlegmon of the 4th digit as well as OM and pathologic fracture of the 4th toe also has exposed hardware on L 1st toe ESR/CRP 92/10 respectively started on IV Vanc/zosyn, continue podiatry input appreciated, for OR today follow up on blood and intraop cultures (2) Acute renal failure superimposed on stage 3 chronic kidney disease Current Visit: Yes Status: Acute Assessment and Plan: AoCKD vs. progression of CKD widely fluctuating Cr but it was as low as 2.2 in 08/2017 Cr slightly improved on IVF, will d/c IVF and encourage oral intake US retroperitoneum unremarkable renally dosed abx avoid nephrotoxins (3) Diabetes Current Visit: Yes Status: Chronic Assessment and Plan: poorly controlled, A1c 10.6 Pt had not used any diabetic meds for the last year or so on basal-bolus insulin, increase sliding scale coverage to high dose (4) Hypertension Current Visit: Yes Status: Chronic Assessment and Plan: change bb to coreg for better BP control (5) DVT prophylaxis Current Visit: Yes Status: Acute Assessment and Plan: Subcutaneous heparin - Time Spent with Patient Total time spent is greater than 50% in coordination of care (as documented) at patient's floor/unit and/or counseling patient: 25 - 35 minutes Plan of Care Discussed with: patient Internal Medicine: Result - Labs CBC & Chem 7: 03/22/19 00:30 03/22/19 00:30 Labs: Short CBC 03/22/19 Range/Units 00:30 WBC 7.5 (4.3-11.1) K/mcL Hgb 8.3 L (12.9-16.9) g/dL Hct 26.7 L (37.5-50.1) % Plt Count 263 (140-400) K/mcL Neutrophils # 5.3 (1.6-8.9) K/mcL BMP 03/22/19 00:30 Sodium 139 Potassium 4.7 Chloride 117 H Carbon Dioxide 16 L BUN 38 H Creatinine 3.17 H Glucose 193 H Calcium 8.0 L - Impressions Impressions Retroperitoneum Ultrasound 03/21/19 10:41 IMPRESSION: 1. No hydronephrosis. 2. Postvoid residual as above. 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
[2019-03-22] MEDS: Insulin LISPRO 300 UNITS/3 ML VIAL SQ SCH ×3 (11:44→20:31)
--- NOTE | 2019-03-22 18:31 | Anesthesia Evaluation Post Op ---
Date of Encounter: 03/22/19 Time of Encounter: 08:50 - Vital Signs Vital Signs: Vital Signs Temp Pulse Resp BP Pulse Ox 03/22/19 10:46 97.6 F 74 20 157/76 99 03/22/19 06:37 97.9 F 88 20 180/94 98 03/22/19 04:25 160/88 03/22/19 03:21 98.1 F 78 18 168/90 97 03/21/19 23:08 98.1 F 84 17 162/81 94 03/21/19 20:50 98 03/21/19 19:02 97.8 F 86 18 166/89 98 Intake and Output 03/22/19 03/22/19 03/22/19 07:59 15:59 23:59 Intake Total 100 / 220 120 / 220 Output Total 500 / 501 1 / 501 Balance -400 / -281 119 / -281 Intake: IV Fluids 100 / 100 Zosyn 3.375 GM In 0.9 % Sodium 100 / 100 Chloride (Mini-Bag +) 100 ML @ 25 mls/hr IVPB Q8H [facility] Rx#: [id number] Oral 120 / 120 Output: Urine 500 / 500 Estimated Blood Loss Other: Meal Lunch Percent of Meal Consumed 25% Stool Size Moderate # Voids 1 # Bowel Movements 1 Blood Glucose* 161 164 - Lungs Lungs: Clear Ascult./Percussion - Airway Airway: Non-obstructed - Cardiovascular Baseline Rhythm - Mental Status Mental Status: Alert & Oriented, Answers Appropriately - Pain Pain Scale: 0 Pain Scale used: Numeric (1 - 10) - Nausea Vomiting Nausea Vomiting: Not Present - Hydration Hydration: NPO, Has not voided - Discharge PostOp Status: Transfer Patient to floor Anes Supervising Prov Stmt: Pt seen/evaluated, VSS And has met criteria for discharge to floor. - Sarahi Vargas MD
[2019-03-22] MEDS: Insulin DETEMIR 100 UNIT/ML X5UNITS SQ SCH (20:44)
[2019-03-22] MEDS: Dorzolamide OPTH 10 ML BOTTLE LEFT EYE SCH (20:44)
[2019-03-23] MEDS: Piperacillin/Tazobactam 3.375 GM in 0.9 % Sodium Chloride Mini Bag 100 ML IVPB SCH ×3 (00:36→15:50)
[2019-03-23 05:05] LABS: Basophils # 0.1 K/mcL (0.0-0.2); Basophils % 0.7 %; Eosinophils # 0.2 K/mcL (0.0-0.6); Eosinophils % 2.4 %; Hematocrit 28.2 % (37.5-50.1); Hemoglobin 8.6 g/dL (12.9-16.9); Immature Granulocytes % 0.2 % (0-4); Lymphocytes # 2.4 K/mcL (0.6-4.6); Lymphocytes % 27.6 %; Mean Corpuscular HGB Conc 30.5 g/dL (31.6-35.5); Mean Corpuscular Hemoglobin 27.6 pg (28.0-33.3); Mean Corpuscular Volume 90.4 fL (83.0-100.0); Mean Platelet Volume 9.9 fL (9.4-12.4); Monocytes # 0.8 K/mcL (0.0-1.3); Monocytes % 8.8 %; Neutrophils # 5.2 K/mcL (1.6-8.9); Platelet Count 276 K/mcL (140-400); Red Blood Count 3.12 M/mcL (4.19-5.50); Red Cell Distribution Width 14.4 % (11.5-14.5); Segmented Neutrophils % 60.3 %
[2019-03-23 05:26] LABS: Potassium 4.5 mEq/L (3.5-5.1)
[2019-03-23] MEDS: *HR* Heparin 5,000 UNIT/ML VIAL SQ SCH ×2 (06:09→17:30)
[2019-03-23] MEDS: Insulin LISPRO 300 UNITS/3 ML VIAL SQ SCH ×4 (07:52→22:17)
[2019-03-23] MEDS: Aspirin Enteric Coated 325 MG Tablet PO SCH (08:41)
[2019-03-23] MEDS: amLODIPine 5 MG TABLET PO SCH (08:41)
[2019-03-23] MEDS: Dorzolamide OPTH 10 ML BOTTLE LEFT EYE SCH ×2 (08:42→22:23)
--- NOTE | 2019-03-23 09:18 | Podiatry Progress Note ---
Date of Encounter: 03/23/19 Time of Encounter: 08:50 - Assessment and Plan (1) Toe ulcer due to DM Current Visit: No Status: Acute Assessment: -Post op day #1 1. Left 4th toe incision and drainage below fascia, 2. Left 4th toe amputation, 3. Left 1st toe removal of hardware, and 4. Left 1st toe wide excision ulcer with closure by Dr. Fragoso in 03/22/2019 -Dressing dry and intact, no strike through noted, no swelling noted above or below dressing -2/4 PT pulse noted -WBC 8.7 -Wound culture of left 4th toe final for no growth -Anaerobic culture left 4th toe, no growth, preliminary -Pending final report surgical path specimen Plan: -Do not change dressing, call if it becomes saturated, podiatry to change tomorrow -Non weight bearing LLE -Will obtain orthowedge shoe and patient may ambulate LLE in shoe only and limited -Consider discharge tomorrow on PO antibiotics pending path specimen -Will continue to monitor Qualifiers: Diabetes mellitus type: type 2 Laterality: left Non-pressure ulcer stage: limited to breakdown of skin Qualified Code(s): E11.621 - Type 2 diabetes mellitus with foot ulcer; L97.521 - Non-pressure chronic ulcer of other part of left foot limited to breakdown of skin (2) Foot ulcer, limited to breakdown of skin Current Visit: No Status: Acute Assessment: -Dressing dry and intact -No swelling above or below dressing -2/4 PT pulse Plan: -Nursing to continue daily dressing changes Qualifiers: Laterality: left Qualified Code(s): L97.521 - Non-pressure chronic ulcer of other part of left foot limited to breakdown of skin (3) Diabetes Current Visit: Yes Status: Chronic Assessment: -Glucose 151 Plan: -Tight glycemic control to prevent further complications and promote wound healing Qualifiers: Diabetes mellitus type: type 2 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 Left 4th toe incision and drainage below fascia, 2. Left 4th toe amputation, 3. Left 1st toe removal of hardware, and 4. Left 1st toe wide excision ulcer with closure by Dr. Fragoso on 03/22/2019. Patient is alert and oriented, sitting on side of bed, well nourished, in no acute distress. Dressing to bilateral lower extremities dry and intact, no s trike through noted. Patient denies any chest pain, shortness of breath, or calf pain. Patient denies any fever, chills, nausea, vomiting, or diarrhea. Objective - Vital Signs Vital Signs: Vital Signs Temp Pulse Resp BP Pulse Ox 03/23/19 07:03 98.2 F 83 18 167/88 99 03/23/19 03:24 97.6 F 84 17 152/77 98 03/22/19 23:49 97.7 F 84 18 159/84 98 03/22/19 20:30 93 03/22/19 18:49 98.7 F 83 17 126/77 93 03/22/19 15:01 97.5 F L 85 20 163/90 98 03/22/19 10:46 97.6 F 74 20 157/76 99 Intake and Output 03/22/19 03/23/19 03/23/19 23:59 07:59 15:59 Intake Total 220 / 440 100 / 100 Balance 220 / -61 100 / 100 Intake: IV Fluids 100 / 200 100 / 100 Zosyn 3.375 GM In 0.9 % Sodium 100 / 100 100 / 100 Chloride (Mini-Bag +) 100 ML @ 25 mls/hr IVPB Q8H [facility] Rx#: [id number] Oral 120 / 240 Other: Weight 123.2 kg Blood Glucose* 161 139 - Exam Exam: Constitutional: Alert and oriented x 3, no acute distress noted, well nourished Vascular: 2/4 PT pulses bilateral, no calf pain with squeeze, skin warm to touch Neurological: Diminished protective sensation Dermatological: Dressing dry and intact bilateral feet, no strike through noted Musculoskeletal: 4/5 muscle strength, normal muscle tone - Lab Result Diagrams: 03/23/19 04:20 03/23/19 04:20 Labs: Abnormal lab results WBC 11.4 K/mcL (4.3-11.1) H 03/21/19 01:17 RBC 3.12 M/mcL (4.19-5.50) L 03/23/19 04:20 Hgb 8.6 g/dL (12.9-16.9) L 03/23/19 04:20 Hct 28.2 % (37.5-50.1) L 03/23/19 04:20 MCH 27.6 pg (28.0-33.3) L 03/23/19 04:20 MCHC 30.5 g/dL (31.6-35.5) L 03/23/19 04:20 ESR 92 mm/hr (0-10) H 03/20/19 10:35 Sodium 135 mEq/L (136-145) L 03/20/19 10:35 Chloride 118 mEq/L (98-107) H 03/23/19 04:20 Carbon Dioxide 17 mEq/L (23-29) L 03/23/19 04:20 BUN 32 mg/dL (6-20) H 03/23/19 04:20 3.40 mg/dL (0.70-1.30) H 03/23/19 04:20 Est GFR ( Amer) 23 (> 60) L 03/23/19 04:20 Est GFR (Non-Af Amer) 19 (> 60) L 03/23/19 04:20 Glucose 151 mg/dL (70-105) H 03/23/19 04:20 POC Glucose 161 mg/dL (70-99) H 03/22/19 20:27 10.6 % (-5.6) H 03/20/19 10:35 302 (280-300) H 03/23/19 04:20 Calcium 8.0 mg/dL (8.6-10.3) L 03/23/19 04:20 10 mg/L (Less than 10) H 03/20/19 10:35 Vancomycin Trough 19 mcg/mL (5-10) H 03/22/19 11:51 Microbiology, Last 48 Hours 03/20/19 14:13 Wound Culture - Final Left Fourth Toe No growth. 03/20/19 14:13 Gram Stain - Final Left Fourth Toe Consult Discharge Plan - Plan Referrals: Chencho Murillo MD [Primary Care Provider] -
--- NOTE | 2019-03-23 10:15 | Internal Med Progress Note ---
Hospitalist Progress Note - Encounter Date of Encounter: 03/23/19 Time of Encounter: 08:15 - Subjective Interval History: Underwent left fourth toe amputation uneventfully yesterday. Complaining of expected discomfort at the op site. No fever overnight. - Exam Vitals: Temp Pulse Resp BP Pulse Ox 98.2 F 83 18 167/88 99 03/23/19 07:03 03/23/19 07:03 03/23/19 07:03 03/23/19 07:03 03/23/19 07:03 Exam: General: Alert and oriented, not in acute distress. Cardiovascular:Normal S1 & S2, No JVD. Pulse regular. Lungs: clear to auscultation, no wheezes/rales Abdomen:Soft, non-tender, no rigidity. Extremities: L foot dressing c/d/i Neurological:Normal cognition and motor skills. Non-focal - Assessment and Plan (1) Osteomyelitis of toe of left foot Current Visit: Yes Status: Acute Assessment and Plan: L foot MRI 03/19 showed soft tissue swelling abscess vs phlegmon of the 4th digit as well as OM and pathologic fracture of the 4th toe also has exposed hardware on L 1st toe ESR/CRP 92/10 respectively started on IV Vanc/zosyn, continue s/p L 4th toe amputation and removal of hardware on L 1st toe, POD #1. Podiatry input appreciated discussed with Dr. Fragoso, will follow up on intraop cultures and plan for PO Abx tomorrow after dressing change follow up on blood and intraop cultures (2) Acute renal failure superimposed on stage 3 chronic kidney disease Current Visit: Yes Status: Acute Assessment and Plan: AoCKD vs. progression of CKD widely fluctuating Cr but it was as low as 2.2 in 08/2017 US retroperitoneum unremarkable Cr more or less stable around 3.2-3.4, appears to be his new baseline renally dosed abx avoid nephrotoxins will need nephro follow up outpatient (3) Diabetes Current Visit: Yes Status: Chronic Assessment and Plan: poorly controlled, A1c 10.6 continue basal-bolus insulin (4) Hypertension Current Visit: Yes Status: Chronic Assessment and Plan: bb changed to coreg on 03/22, will continue to monitor BP and uptitrate further if needed continue norvasc (5) DVT prophylaxis Current Visit: Yes Status: Acute Assessment and Plan: Subcutaneous heparin - Time Spent with Patient Total time spent is greater than 50% in coordination of care (as documented) at patient's floor/unit and/or counseling patient: 25 - 35 minutes Plan of Care Discussed with: patient (Discussed with RN and podiatry) Internal Medicine: Result - Labs CBC & Chem 7: 03/23/19 04:20 03/23/19 04:20 Labs: Short CBC 03/23/19 Range/Units 04:20 WBC 8.7 (4.3-11.1) K/mcL Hgb 8.6 L (12.9-16.9) g/dL Hct 28.2 L (37.5-50.1) % Plt Count 276 (140-400) K/mcL Neutrophils # 5.2 (1.6-8.9) K/mcL BMP 03/23/19 04:20 Sodium 141 Potassium 4.5 Chloride 118 H Carbon Dioxide 17 L BUN 32 H Creatinine 3.40 H Glucose 151 H Calcium 8.0 L Consult Discharge Plan - Plan Referrals: Chencho Murillo MD [Primary Care Provider] - (2) Acute renal failure superimposed on stage 3 chronic kidney disease Qualifiers: Acute renal failure type: unspecified Qualified Code(s): N17.9 - Acute kidney failure, unspecified; N18.3 - Chronic kidney disease, stage 3 (moderate) (3) Diabetes Qualifiers: Diabetes mellitus type: type 2 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
[2019-03-23] MEDS ORDERED: Vancomycin 1,000 MG, Sodium Chloride IRRigation 1,000 ML IR ONE ×2 (16:15)
[2019-03-23] MEDS: Insulin DETEMIR 100 UNIT/ML X5UNITS SQ SCH (22:22)
[2019-03-24] MEDS: Piperacillin/Tazobactam 3.375 GM in 0.9 % Sodium Chloride Mini Bag 100 ML IVPB SCH ×2 (00:23→08:08)
[2019-03-24 05:41] LABS: Basophils # 0.1 K/mcL (0.0-0.2); Basophils % 0.6 %; Eosinophils # 0.3 K/mcL (0.0-0.6); Eosinophils % 3.2 %; Hematocrit 27.6 % (37.5-50.1); Hemoglobin 8.3 g/dL (12.9-16.9); Immature Granulocytes % 0.2 % (0-4); Lymphocytes # 2.6 K/mcL (0.6-4.6); Lymphocytes % 31.4 %; Mean Corpuscular HGB Conc 30.1 g/dL (31.6-35.5); Mean Corpuscular Hemoglobin 27.5 pg (28.0-33.3); Mean Corpuscular Volume 91.4 fL (83.0-100.0); Mean Platelet Volume 10.3 fL (9.4-12.4); Monocytes # 0.6 K/mcL (0.0-1.3); Monocytes % 7.2 %; Neutrophils # 4.7 K/mcL (1.6-8.9); Platelet Count 279 K/mcL (140-400); Red Blood Count 3.02 M/mcL (4.19-5.50); Red Cell Distribution Width 14.4 % (11.5-14.5); Segmented Neutrophils % 57.4 %
[2019-03-24] MEDS: *HR* Heparin 5,000 UNIT/ML VIAL SQ SCH (05:50)
[2019-03-24 05:56] LABS: Calcium 8.3 mg/dL (8.6-10.3); Potassium 4.5 mEq/L (3.5-5.1)
[2019-03-24 07:22] VITALS: BP 151/77
[2019-03-24] MEDS: Insulin LISPRO 300 UNITS/3 ML VIAL SQ SCH ×2 (07:27→12:11)
[2019-03-24] MEDS: amLODIPine 5 MG TABLET PO SCH (08:07)
[2019-03-24] MEDS: Aspirin Enteric Coated 325 MG Tablet PO SCH (08:08)
[2019-03-24] MEDS: Dorzolamide OPTH 10 ML BOTTLE LEFT EYE SCH (08:09)
--- NOTE | 2019-03-24 09:23 | Discharge Summary ---
- NOTES TO OUTPATIENT PROVIDER Notes to Outpatient Provider: Follow up with podiatry. Insulin started with diabetic supplies; follow up with PCP. Establish care with nephro for CKD Stage III-IV Orders not resulted at time of discharge: Pending orders 03/20/19 10:40 Culture,Blood [BC] Stat 03/20/19 14:13 Culture,Anaerobic [RM] Routine 03/22/19 08:54 Surgical Pathology [PTH] Routine 03/22/19 11:30 AFB Culture, Tissue [TB] Routine Culture,Anaerobic [RM] Routine Fungal Culture [MYC] Routine 03/23/19 11:30 Culture,Tissue (Biopsy) [RM] Routine Date of Encounter: 03/24/19 Time of Encounter: 07:15 - Discharge Diagnosis (1) Osteomyelitis of toe of left foot Priority: Primary Status: Acute (2) Acute renal failure superimposed on stage 3 chronic kidney disease Priority: Secondary Status: Acute Qualifiers: Acute renal failure type: unspecified Qualified Code(s): N17.9 - Acute kidney failure, unspecified; N18.3 - Chronic kidney disease, stage 3 (moderate) (3) Diabetes Priority: Secondary Status: Chronic Qualifiers: Diabetes mellitus type: type 2 Diabetes mellitus alf insulin use: with alf use Diabetes mellitus complication status: with skin complications Diabetes mellitus complication detail: with foot ulcer Qualified Code(s): E11.621 - Type 2 diabetes mellitus with foot ulcer; L97.509 - Non-pressure chronic ulcer of other part of unspecified foot with unspecified severity; Z79.4 - assisted (current) use of insulin (4) Hypertension Priority: Secondary Status: Chronic Qualifiers: Hypertension type: essential hypertension Qualified Code(s): I10 - Essential (primary) hypertension (5) DVT prophylaxis Priority: Secondary Status: Acute (6) Morbid obesity with BMI of 40.0-44.9, adult Priority: Secondary Status: Chronic Hospital course: Mr. Kumar is a 48 year old male with history of diabetes complicated by CKD, DM foot ulcers, medication noncompliance, HTN, was admitted due to L 4th toe OM. Started on IV Vanco/zosyn and Underwent amputation on 03/22. Intraop culture NGTD. Path pending. DIscussed with podiatry who felt comfortable with the surgical margin and he will be discharged home on PO Doxycycline for 7 days. Insulin was started for the patient; follow up with PCP. He will also need to establish care with nephrology as an outpatient for CKD stage III-IV. Discharge discussed with: patient, nurse, social work, case management, industry consultant - Time Spent with Patient Total time spent providing and/or coordinating discharge services: 33 mins - Discharge Medications Prescriptions: New Carvedilol [Coreg] 12.5 mg PO BIDWM #120 tablet Doxycycline 100 mg PO BID 7 Days #14 capsule Insulin NPH/REG 70/30 (HUMAN) [Humulin 70/30 Vial] 25 unit SQ BID #30 vial No Action Dorzolamide HCl 1 drop LEFT EYE 1-2XD Home Medications: Dorzolamide HCl 1 drop LEFT EYE 1-2XD 03/20/19 [History] Carvedilol [Coreg] 12.5 mg PO BIDWM #120 tablet 03/24/19 [Rx] Doxycycline 100 mg PO BID 7 Days #14 capsule 03/24/19 [Rx] Insulin NPH/REG 70/30 (HUMAN) [Humulin 70/30 Vial] 25 unit SQ BID #30 vial 03/24/19 [Rx] Allergies/Adverse Reactions: Allergy/AdvReac Type Severity Reaction Status Date / Time No Known Allergies Allergy Verified 03/20/19 16:45 Date of admission: 03/20/19 11:37 Primary care physician: Chencho Murillo MD Consults: 03/20/19 10:34 Consult to Podiatry [CONS] Stat Consulting Provider: Podiatry [facility] Reason for Consult: left 4th digit osteo Call Completed: No - Constitutional Vitals: Temp Pulse Resp BP Pulse Ox 98.0 F 84 18 151/77 97 03/24/19 07:21 03/24/19 07:21 03/24/19 07:21 03/24/19 07:21 03/24/19 08:22 Exam: General: Alert and oriented, not in acute distress. Cardiovascular:Normal S1 & S2, No JVD. Pulse regular. Lungs: clear to auscultation, no wheezes/rales Abdomen:Soft, non-tender, no rigidity. Extremities: L foot dressing c/d/i Neurological:Normal cognition and motor skills. Non-focal - Patient Status Disposition: Home, Self-Care Condition: Good Overall status at discharge: patient is progressing back to baseline - Discharge Instructions Instructions: Diabetes Mellitus Type 2 in Adults (DC), Chronic Hypertension (DC) Follow Up With: Chencho Murillo MD [Primary Care Provider] - 04/06/19 9:00 am (Please follow up as schedule...) Thomas Fragoso DPM [Partnered Physician] - Tenzin Whitaker DO [Partnered Physician] - - Diet and Activity Activity: resume usual activities as tolerated Diet: diabetic diet
--- NOTE | 2019-03-24 09:31 | Podiatry Progress Note ---
Date of Encounter: 03/24/19 Time of Encounter: 09:00 - Assessment and Plan (1) Toe ulcer due to DM Status: Acute Assessment: -Post op day #2 1. Left 4th toe incision and drainage below fascia, 2. Left 4th toe amputation, 3. Left 1st toe removal of hardware, and 4. Left 1st toe wide excision ulcer with closure by Dr. Fragoso in 03/22/2019 -Left great toe with sutures intact, no signs of dehiscence, no erythema, no edema, no lymphangitis, no signs of complications or infection. Sutures to 4th toe amputation site intact and edges coapting, no signs of dehiscence, no signs of infection, no erythema, no drainage, no edema. -2/4 PT/DP pulses noted -WBC 8.1 -Wound culture of left 4th toe final for no growth -Anaerobic culture left 4th toe, no growth, preliminary -Pending final report surgical path specimen Plan: -Dressing changed -Site flushed with sterile .9NS and pat dry -Suture sites painted with betadine and covered with Xeroform, 4x4 dry gauze, and Kerlix -Secured with GEE wrap in orthowedge shoe -Do not change dressing, call office if dressing becomes saturated -Limited weight bearing LLE in orthowedge shoe -Okay to discharge home -Recommend Doxycycline or Clindamycin PO for 7 days -Follow up next Saturday or Saturday in Podiatry office with Yadira Soliz CNP, call and make appointment before discharge Qualifiers: Diabetes mellitus type: type 2 Laterality: left Non-pressure ulcer stage: limited to breakdown of skin Qualified Code(s): E11.621 - Type 2 diabetes mellitus with foot ulcer; L97.521 - Non-pressure chronic ulcer of other part of left foot limited to breakdown of skin (2) Foot ulcer, limited to breakdown of skin Status: Acute Assessment: -Healing ulcer to right lateral aspect sub met #5, wound base with granular tissue, dry flaking skin around wound base, no fluctuance, no erythema, no lymphangitis, no signs of complications noted. -2/4 PT/DP pulses noted -Cap refill less than 3 seconds to all digits Plan: -Dressing changed -Site flushed with sterile .9NS and pat dry -Painted site with betadine and covered with 4x4 dry gauze and Kerlix -Secured with GEE -Okay to discharge home -May change dressing at home daily, patient has supplies for betadine dressing changes -Follow up next Saturday or Saturday in Podiatry office with Yadira Soliz CNP, call and make appointment before discharge Qualifiers: Laterality: left Qualified Code(s): L97.521 - Non-pressure chronic ulcer of other part of left foot limited to breakdown of skin (3) Diabetes Status: Chronic Assessment: -Glucose 130 Plan: -Tight glycemic control to prevent further complications and promote wound healing Qualifiers: Diabetes mellitus type: type 2 Diabetes mellitus [facility] insulin use: with ferry terminal agent use Diabetes mellitus complication status: with skin complications Diabetes mellitus complication detail: with foot ulcer Qualified Code(s): E11.621 - Type 2 diabetes mellitus with foot ulcer; L97.509 - Non-pressure chronic ulcer of other part of unspecified foot with unspecified severity; Z79.4 - ferry terminal agent (current) use of insulin Subjective Principal diagnosis: left 4th toe abscess, exposed hardware 1st toe Interval history: Post op day #2: 1. Left 4th toe incision and drainage below fascia, 2. Left 4th toe amputation, 3. Left 1st toe removal of hardware, and 4. Left 1st toe wide excision ulcer with closure by Dr. Fragoso on 03/22/2019. Patient is alert and oriented, resting in bed, well nourished, in no acute distress. Dressing to bilateral lower extremities dry and intact, no strike through noted. Patient wearing orthowedge shoe LLE. Patient denies any chest pain, shortness of breath, or calf pain. Patient denies any fever, chills, nausea, vomiting, or diarrhea. Objective - Vital Signs Vital Signs: Vital Signs Temp Pulse Resp BP Pulse Ox 03/24/19 08:22 97 03/24/19 07:21 98.0 F 84 18 151/77 97 03/24/19 04:17 98.2 F 82 18 145/70 98 03/23/19 23:27 97.6 F 77 18 154/77 98 03/23/19 18:34 97.6 F 74 17 134/79 97 03/23/19 15:42 97.7 F 78 18 149/76 98 03/23/19 11:10 98.5 F 79 18 141/79 98 Intake and Output 03/23/19 03/24/19 03/24/19 23:59 07:59 15:59 Intake Total 340 / 540 100 / 580 480 / 580 Output Total 0 / 0 0 / 0 Balance 340 / 540 100 / 580 480 / 580 Intake: IV Fluids 100 / 300 100 / 100 Zosyn 3.375 GM In 0.9 % Sodium 100 / 300 100 / 100 Chloride (Mini-Bag +) 100 ML @ 25 mls/hr IVPB Q8H [facility] Rx#: [id number] Oral 240 / 240 480 / 480 Output: Urine 0 / 0 0 / 0 Other: Meal Breakfast Percent of Meal Consumed 20% # Voids 1 Weight 123.8 kg Blood Glucose* 142 123 - Exam Exam: Constitutional: Alert and oriented x 3, no acute distress noted, well-nourished Vascular: 2/4 PT/DP pulses noted bilaterally, cap refill less than 3 seconds to digits, no edema noted, no pain with calf squeeze Neurological: Diminished protective sensation, normal plantar response Dermatological: Healing ulcer to right lateral aspect sub met #5, wound base with granular tissue, dry flaking skin around wound base, no fluctuance, no erythema, no lymphangitis, no signs of complications noted. Left great toe with sutures intact, no signs of dehiscence, no erythema, no edema, no lymphangitis, no signs of complications or infection. Sutures to 4th toe amput ation site intact and edges coapting, no signs of dehiscence, no signs of infection, no erythema, no drainage, no edema. Musculoskeletal: 4/5 muscle strength, normal muscle tone - Lab Result Diagrams: 03/24/19 03:34 03/24/19 03:34 Labs: Abnormal lab results WBC 11.4 K/mcL (4.3-11.1) H 03/21/19 01:17 RBC 3.02 M/mcL (4.19-5.50) L 03/24/19 03:34 Hgb 8.3 g/dL (12.9-16.9) L 03/24/19 03:34 Hct 27.6 % (37.5-50.1) L 03/24/19 03:34 MCH 27.5 pg (28.0-33.3) L 03/24/19 03:34 MCHC 30.1 g/dL (31.6-35.5) L 03/24/19 03:34 ESR 92 mm/hr (0-10) H 03/20/19 10:35 Sodium 135 mEq/L (136-145) L 03/20/19 10:35 Chloride 117 mEq/L (98-107) H 03/24/19 03:34 Carbon Dioxide 18 mEq/L (23-29) L 03/24/19 03:34 BUN 30 mg/dL (6-20) H 03/24/19 03:34 3.49 mg/dL (0.70-1.30) H 03/24/19 03:34 Est GFR ( Amer) 23 (> 60) L 03/24/19 03:34 Est GFR (Non-Af Amer) 19 (> 60) L 03/24/19 03:34 Glucose 130 mg/dL (70-105) H 03/24/19 03:34 POC Glucose 123 mg/dL (70-99) H 03/24/19 07:18 10.6 % (-5.6) H 03/20/19 10:35 308 (280-300) H 03/24/19 03:34 Calcium 8.3 mg/dL (8.6-10.3) L 03/24/19 03:34 10 mg/L (Less than 10) H 03/20/19 10:35 Vancomycin Trough 14 mcg/mL (5-10) H 03/23/19 14:59 Microbiology, Last 48 Hours 03/20/19 14:13 Anaerobic Culture - Preliminary Left Fourth Toe At this time, no anaerobic growth is present. The culture will be finalized after 5 days of incubation. 03/22/19 11:30 Anaerobic Culture - Preliminary Surgery Culture is incubating. 03/23/19 11:30 Surgical Biopsy Culture - Preliminary Other-Specify in Comments 03/20/19 14:13 Wound Culture - Final Left Fourth Toe No growth. Consult Discharge Plan - Plan Instructions: Diabetes Mellitus Type 2 in Adults (DC), Chronic Hypertension (DC) Referrals: Chencho Murillo MD [Primary Care Provider] - 04/06/19 9:00 am (Please follow up as schedule...) Thomas Fragoso DPM [Partnered Physician] - 04/01/19 9:00 am (Follow up with Yadira) Tenzin Whitaker DO [Partnered Physician] - 03/27/19 2:15 pm (Please follow up as schedule...) Prescriptions: Carvedilol [Coreg] 12.5 mg PO BIDWM #120 tablet Doxycycline 100 mg PO BID 7 Days #14 capsule Insulin NPH/REG 70/30 (HUMAN) [Humulin 70/30 Vial] 25 unit SQ BID #30 vial
[2019-03-24] MEDS ORDERED: Doxycycline 100 MG CAPSULE PO SCH (09:45)
[2019-03-24] MEDS ORDERED: Aminoglycoside Consult 1 EACH MC ONE (13:00)
== END 2019-03-24 13:01 | disposition home or self-care (01) | DRG 314 ==
LOC: EMEROOARM 09:58 → 3NENU 11:37 → SUATTDRO 11:37 → 3NENU 11:51 → 2ANU 03-21 18:58
PROVIDERS: ADMIT Student in an Organized Health Care Education/Training Program; ATTEND Internal Medicine

== ENCOUNTER 2022-06-27 16:21 | Inpatient (IN) ==
[2022-06-27 19:08] LABS: Amorphous Sediment,Urine Few per hpf (None-Few); Bacteria,Urine Few per hpf (None-Few); Bilirubin,Urine Negative (Negative); Blood,Urine Trace (Negative); Clarity,Urine Clear (Clear); Color,Urine Light-Yellow (Yellow); Glucose,Urine (UA) 30 mg/dL (Normal); Hyaline Casts,Urine Few per lpf (None Seen); Ketones,Urine Negative (Negative); Leukocyte Esterase,Urine Moderate (Negative); Mucus,Urine Few per lpf (None-Few); Nitrite,Urine Negative (Negative); Protein,Urine >=600 mg/dL (Neg-Trace); Specific Gravity,Urine 1.016 (1.010-1.025); Squamous Epithelial Cell,Urine Few per hpf (None-Few); Urobilinogen,Urine Normal (Normal); WBC,Urine 50-100 per hpf (0-3)
[2022-06-27 19:55] LABS: Basophils # 0.1 K/mcL (0.0-0.2); Basophils % 0.5 %; Eosinophils % 0.1 %; Hematocrit 33.8 % (37.5-50.1); Hemoglobin 10.7 g/dL (12.9-16.9); Immature Granulocytes % 0.5 % (0-4); Lymphocytes # 1.6 K/mcL (0.6-4.6); Mean Corpuscular HGB Conc 31.7 g/dL (31.6-35.5); Mean Corpuscular Hemoglobin 28.7 pg (28.0-33.3); Mean Corpuscular Volume 90.6 fL (83.0-100.0); Mean Platelet Volume 10.2 fL (9.4-12.4); Monocytes % 11.4 %; Neutrophils # 6.3 K/mcL (1.6-8.9); Platelet Count 203 K/mcL (140-400); Red Blood Count 3.73 M/mcL (4.19-5.50); Red Cell Distribution Width 14.1 % (11.5-14.5); Segmented Neutrophils % 69.5 %; White Blood Count 9.1 K/mcL (4.3-11.1)
[2022-06-27 20:15] LABS: Calcium 7.8 mg/dL (8.6-10.3); Potassium 4.1 mEq/L (3.5-5.1)
[2022-06-27 21:29] LABS: Albumin 3.8 g/dL (3.5-5.7); Bilirubin,Direct 0.1 mg/dL (0.0-0.2); Bilirubin,Indirect 0.4 mg/dL (0.0-1.0); Bilirubin,Total 0.5 mg/dL (0.3-1.0); Globulin 3.9 g/dL (2.4-3.5); Total Protein 7.7 g/dL (6.4-8.9)
[2022-06-27] MEDS ORDERED: Melatonin 3 MG TABLET PO PRN (22:43)
[2022-06-27] MEDS ORDERED: Naloxone 0.4 MG/ML INJ IVP PRN (22:43)
[2022-06-27] MEDS ORDERED: 0.9 % Sodium Chloride 1,000 ML IVC ONE (22:58)
[2022-06-28 00:32] LABS: Influenza A PCR Negative (Negative); Influenza B PCR Negative (Negative); Resp. Syncytial Virus PCR Negative (Negative)
[2022-06-28 00:39] LABS: SARS-CoV-2 by PCR (In House) Positive (Negative)
[2022-06-28] MEDS: Sodium Bicarbonate 75 MEQ in 0.45 % Sodium Chloride 1,000 ML IVC SCH ×3 (01:39→21:02)
[2022-06-28 03:10] LABS: Bacteria,Urine Few per hpf (None-Few); Bilirubin,Urine Negative (Negative); Blood,Urine Small (Negative); Clarity,Urine Clear (Clear); Color,Urine Light-Yellow (Yellow); Glucose,Urine (UA) Normal (Normal); Hyaline Casts,Urine Few per lpf (None Seen); Ketones,Urine Negative (Negative); Leukocyte Esterase,Urine Moderate (Negative); Mucus,Urine Few per lpf (None-Few); Nitrite,Urine Negative (Negative); PH,Urine 7.5 pH Units (5.0-8.0); Protein,Urine >=300 mg/dL (Neg-Trace); RBC,Urine 0-3 per hpf (0-3); Specific Gravity,Urine 1.014 (1.010-1.025); Squamous Epithelial Cell,Urine Few per hpf (None-Few); Urobilinogen,Urine Normal (Normal); WBC,Urine 30-50 per hpf (0-3)
[2022-06-28 03:15] LABS: VBG HCO3 18 mEq/L (21-27); VBG PCO2 42 mmHg (41-51); VBG PH 7.25 pH Units (7.32-7.42); VBG PO2 30 mmHg (25-50)
[2022-06-28 03:55] LABS: Protein/Creatinine Ratio,Urine 3.15 mg/mg (0.00-0.20); Sodium, Urine 47.1 mEq/L
[2022-06-28] MEDS ORDERED: Dextrose Gel 15 GM/37.5 ML TUBE PO PRN ×2 (07:57)
[2022-06-28] MEDS ORDERED: *HR* Dextrose 50 % in Water (Syg) 50 ML SYRINGE IVP PRN (07:57)
[2022-06-28] MEDS ORDERED: D5% in Water 1,000 ML IVC PRN (07:57)
[2022-06-28] MEDS: carvediloL 6.25 MG TABLET PO SCH ×2 (09:20→16:39)
[2022-06-28] MEDS: cefTRIAXone 1,000 MG in 0.9 % Sodium Chloride 10 ML IVP SCH (09:21)
[2022-06-28] MEDS: Insulin LISPRO 300 UNITS/3 ML VIAL SUBQ SCH ×2 (12:25→16:39)
[2022-06-28 12:50] LABS: Estimated Average Glucose 128 mg/dl; Hemoglobin A1C 6.1 %
[2022-06-29] MEDS: Insulin LISPRO 300 UNITS/3 ML VIAL SUBQ SCH (07:49)
[2022-06-29 09:19] LABS: Calcium 7.2 mg/dL (8.6-10.3); Potassium 3.5 mEq/L (3.5-5.1)
[2022-06-29] MEDS: Sodium Bicarbonate 75 MEQ in 0.45 % Sodium Chloride 1,000 ML IVC SCH ×2 (10:17→21:49)
[2022-06-29] MEDS: carvediloL 6.25 MG TABLET PO SCH ×2 (10:17→16:54)
[2022-06-29] MEDS: cefTRIAXone 1,000 MG in 0.9 % Sodium Chloride 10 ML IVP SCH (10:18)
[2022-06-30] MEDS: carvediloL 6.25 MG TABLET PO SCH ×2 (09:27→16:40)
[2022-06-30] MEDS: Sodium Bicarbonate 75 MEQ in 0.45 % Sodium Chloride 1,000 ML IVC SCH ×2 (09:28→11:45)
[2022-06-30 10:36] LABS: Calcium 6.8 mg/dL (8.6-10.3); Potassium 3.6 mEq/L (3.5-5.1)
[2022-07-01 03:23] LABS: Calcium 6.4 mg/dL (8.6-10.3); Potassium 3.2 mEq/L (3.5-5.1)
[2022-07-01] MEDS: Sodium Bicarbonate 75 MEQ in 0.45 % Sodium Chloride 1,000 ML IVC SCH (05:13)
[2022-07-01] MEDS ORDERED: amLODIPine 5 MG TABLET PO SCH (09:00)
[2022-07-01] MEDS: carvediloL 6.25 MG TABLET PO SCH (09:33)
[2022-07-01 10:46] VITALS: BP 168/75; PULSE 76; TEMP 97.4; O2SAT 97
== END 2022-07-01 12:36 | disposition home or self-care (01) | DRG 178 ==
LOC: SUATTDRO → 2ANU 16:21 → EMEROOARM 16:21 → SUATTDRO 22:11 → 2ANU 22:54
PROVIDERS: ADMIT Internal Medicine; ATTEND Internal Medicine